=== PATIENT | female | born 1975 | race Caucasian/White ===

== ENCOUNTER → 2021-07-28 10:25 | Outpatient (BNVA) | payer OTHER, SELFPAY | PROVIDERS: Visit Provider Family Medicine | DX: Z20.828 Contact with and (suspected) exposure to other viral communicable diseases (principal) | CPT/HCPCS: 87635 ==

== ENCOUNTER 2021-08-16 03:11 | Observation (INO) | payer OTHER, SELFPAY ==
[2021-08-16] VITALS (24 sets, daily range): BP systolic 130–157; BP diastolic 69–112; PULSE 61–94; RESP 14–20; TEMP 35.9–37.1; O2SAT 92–100; BMI 49.4
--- NOTE | 2021-08-16 03:45 | W.ED.ABDPA2 ---
HPI - Abdominal Pain General: Chief Complaint: Abdominal Pain Stated Complaint: N\V Time Seen by Provider: 08/16/21 03:14 Source: patient Mode of arrival: ambulatory Limitations: no limitations History of Present Illness: 45-year-old female states that she is at work tonight 45 minutes ago started feeling very nauseous and vomited states that after she vomited she felt a little lightheaded. States she also has a history of abdominal hernia with is much worse after vomiting states she is typically able to reduce it on her own but was not able to reduce it after she vomited states pains of 4 out of 10 vomiting and nausea is improved but still feeling nauseous. Associated Symptoms: Reports nausea and vomiting; Denies chills, dysuria and fever(s) Review of Systems Const: Denies: fever(s), chills, body aches or change in appetite Eyes: Denies: blurry vision or eye discomfort ENMT: Denies: throat pain or dental pain Card: Denies: chest pain Resp: Denies: dyspnea GI: Reports: abdominal pain, nausea and vomiting : Denies: dysuria Musc: Denies: neck pain or back pain Skin/Breast: Denies: rash Neuro: Denies: headache(s) Psych: Denies: depression Anthony/Lymph: Denies: easy bruising All/Imm: Denies: urticaria PFSH ED PFSH: Surgical History (Updated 08/16/21 @ 03:46 by Sarah Childress MD) Hx of cholecystectomy Social History (Updated 08/16/21 @ 03:46 by Sarah Childress MD) Substance/Drug Use: never Physical Exam Const: COMMON NORMALS: no acute distress, patient oriented x3 and healthy appearing HENMT: COMMON NORMALS: normocephalic and atraumatic HEAD & SCALP: normocephalic and atraumatic Eye: COMMON NORMALS: Equal, round and reactive pupils present and EOMs intact bilaterally PUPIL: Yes Equal, round and reactive pupils present Neck/C-Spine: COMMON NORMALS: full ROM and supple Chest: COMMONS NORMALS: normal inspection of the chest and normal palpation of entire chest wall Resp: COMMON NORMALS: normal respiratory effort, No retractions, No use of accessory muscles and clear to auscultation bilaterally AUSCULTATION: clear to auscultation bilaterally Cardio: COMMON NORMALS: regular rate, regular rhythm and No murmurs present (Cardio) RATE: regular rate RHYTHM: regular rhythm GI: COMMON NORMALS: Normal to inspection, nondistended, normoactive bowel sounds present, Soft to palpation and non-tender PALPATION: Yes Soft to palpation OTHER: Umbilical hernia Extremity: COMMON NORMALS: normal to inspection and full ROM Neuro: COMMON NORMALS: patient oriented x3, moves all extremities and no focal motor deficits Psych: COMMON NORMALS: mental status grossly normal, Normal thought process present and cooperative THOUGHT PROCESS: Normal thought process present Skin: COMMON NORMALS: no rashes or lesions noted and no wounds GENERAL SKIN EXAM: no rashes or lesions noted Course Vital Signs: Vital signs: Vital Signs Temperature 97.5 F L 08/16/21 03:19 Pulse Rate 72 08/16/21 03:19 Respiratory Rate 17 08/16/21 04:43 Blood Pressure 137/88 08/16/21 03:19 Pulse Oximetry 97 08/16/21 03:19 MDM - Abdominal Pain Medical Decision Making Patient presents here with very large hernia with inability or hernia I attempted to reduce it was unsuccessful CT shows the hernia with small bowel with some mild edema patient's been seen in the ER by Dr. Romero who is planning on taking patient to the operating room she also found to be anemic here spoke to her no bleeding no history of anemia I believe this is chronic in nature though as her blood pressure has been normal and she has had no bleeding CT shows no signs of bleeding we will transfuse her also spoke to hospitalist who is consulted. Lab Data : 08/16/21 05:10 08/16/21 03:55 Labs/Radiology: Radiology Impressions Abdomen/Pelvis CT 08/16/21 04:12 IMPRESSION: 1. 18 mm indeterminate mass of the left adrenal gland. Nonemergent unenhanced CT or MR abdomen could further evaluate. 2. Umbilical abdominal wall hernia contains small bowel but is without obstruction. There is mild mesenteric edema seen in the hernia suggesting some vascular compromise but no bowel wall thickening detected. Laboratory Results WBC 8.7 10^3/uL (4.0-10.0) 08/16/21 05:10 RBC 3.08 10^6/uL (4.1-5.3) L 08/16/21 05:10 Hgb 5.2 g/dL (11.5-15.3) L* 08/16/21 05:10 Hct 21.3 % (37.0-47.0) L 08/16/21 05:10 MCV 69.2 fl (81-99) L 08/16/21 05:10 MCH 16.9 pg (28.0-34.0) L 08/16/21 05:10 MCHC 24.4 g/dL (30.0-36.0) L D 08/16/21 05:10 RDW 19.9 % (12.1-15.1) H 08/16/21 05:10 Plt Count 246 10^3/cmm (130-400) 08/16/21 05:10 MPV 11.7 fL (7.4-10.4) H 08/16/21 05:10 Neut % (Auto) 77.3 % 08/16/21 05:10 Lymph % (Auto) 14.2 % 08/16/21 05:10 Story % (Auto) 6.2 % 08/16/21 05:10 Eos % (Auto) 1.5 % 08/16/21 05:10 Baso % (Auto) 0.3 % 08/16/21 05:10 Neut # (Auto) 6.76 10^3/uL (1.8-7.7) 08/16/21 05:10 Lymph # (Auto) 1.2 10^3/uL (0.8-4.8) 08/16/21 05:10 Story # (Auto) 0.5 10^3/uL (0.2-0.9) 08/16/21 05:10 Eos # (Auto) 0.1 10^3/uL (0.0-0.8) 08/16/21 05:10 Baso # (Auto) 0.0 10^3/uL (0.0-0.1) 08/16/21 05:10 Nucleated RBC % (auto) 0 % 08/16/21 05:10 Nucleated RBCs # 0.0 /100WBC 08/16/21 05:10 Sodium 136 mmol/L (136-145) 08/16/21 03:55 Potassium 3.7 mmol/L (3.5-5.1) 08/16/21 03:55 Chloride 102 mmol/L (98-107) 08/16/21 03:55 Carbon Dioxide 22 mmol/L (22-29) 08/16/21 03:55 Anion Gap 15.7 (5-19) 08/16/21 03:55 BUN 17 mg/dL (6-20) 08/16/21 03:55 Creatinine 0.6 mg/dL (0.5-0.9) 08/16/21 03:55 GFR Calculation 109.1 mL/min (90-130) 08/16/21 03:55 Glucose 144 mg/dL (65-115) H 08/16/21 03:55 Calculated Osmolality 286 mOsm/kg (285-295) 08/16/21 03:55 Calcium 9.2 mg/dL (8.5-10.5) 08/16/21 03:55 Total Bilirubin 0.3 mg/dL (0.15-1.2) 08/16/21 03:55 AST 17 U/L (0-32) 08/16/21 03:55 ALT 13 U/L (0-33) 08/16/21 03:55 Alkaline Phosphatase 133 IU/L (35-105) H 08/16/21 03:55 Total Protein 6.7 g/dL (6.6-8.7) 08/16/21 03:55 Albumin 4.1 g/dL (3.5-5.2) 08/16/21 03:55 Globulin 2.6 g/dL (1.3-4.6) 08/16/21 03:55 Lipase 50 U/L (13-60) 08/16/21 03:55 HCG, Qual Negative (Negative) 08/16/21 03:55 Discharge Plan Discharge Patient Disposition: Admitted As Inpatient Clinical Impression: Incarcerated hernia, Anemia Coding Level of Care Code ED Director Of Infection Control for Chg Fwd Exam Comprehensive
[2021-08-16] MEDS: LORazepam 2 mg/mL INJ 1 mL 1 MG IVP (03:59)
[2021-08-16] MEDS: sodium chloride 0.9% 1,000 ML 999 ML IV (03:59)
[2021-08-16] MEDS: ondansetron 2 mg/ML SDV 2 mL 4 MG IVP (03:59)
[2021-08-16] MEDS: HYDROmorphone 1 mg/mL INJ 1 mL IVP (04:00)
--- NOTE | 2021-08-16 04:12 | CTR_ITS ---
PROCEDURE INFORMATION: Exam: CT Abdomen And Pelvis With Contrast Exam date and time: 08/16/2021 4:12 AM Age: 45 years old Clinical indication: Nausea and vomiting; Abdominal pain; Prior surgery; Surgery type: Gb; Patient HX: Periumbilical pain with n/v. ; Additional info: Hernia TECHNIQUE: Imaging protocol: Computed tomography of the abdomen and pelvis with contrast. Total images: 268 Radiation optimization: All CT scans at this facility use at least one of these dose optimization techniques: automated exposure control; mA and/or kV adjustment per patient size (includes targeted exams where dose is matched to clinical indication); or iterative reconstruction. Contrast material: OMNI 300; Contrast volume: 95 ml; Contrast route: INTRAVENOUS (IV); COMPARISON: No relevant prior studies available. RADIATION DOSE METRICS: Total DLP (mGy-cm): 1769.03 FINDINGS: Liver: Normal. No mass. Gallbladder and bile ducts: Prior cholecystectomy noted. Pancreas: Normal. No ductal dilation. Spleen: Normal. No splenomegaly. Adrenal glands: 18 mm indeterminate mass of the left adrenal gland. Kidneys and ureters: Normal. No hydronephrosis. Stomach and bowel: Unremarkable. No obstruction. No mucosal thickening. Appendix: No evidence of appendicitis. Intraperitoneal space: Unremarkable. No free air. No significant fluid collection. Vasculature: Unremarkable. No abdominal aortic aneurysm. Lymph nodes: Unremarkable. No enlarged lymph nodes. Urinary bladder: Unremarkable as visualized. Reproductive: Unremarkable as visualized. Bones/joints: Unremarkable. No acute fracture. Soft tissues: Umbilical abdominal wall hernia contains small bowel but is without obstruction. There is mild mesenteric edema seen in the hernia suggesting some vascular compromise but no bowel wall thickening detected. CT/CT abdomen pelvis w con* [id number] IMPRESSION: 1. 18 mm indeterminate mass of the left adrenal gland. Nonemergent unenhanced CT or MR abdomen could further evaluate. 2. Umbilical abdominal wall hernia contains small bowel but is without obstruction. There is mild mesenteric edema seen in the hernia suggesting some vascular compromise but no bowel wall thickening detected.
[2021-08-16 04:19] LABS: Basophils % 0.5 %; Eosinophils # 0.4 10^3/uL (0.0-0.8); Eosinophils % 4.7 %; Hematocrit 22.8 % (37.0-47.0); Lymphocytes # 1.9 10^3/uL (0.8-4.8); Lymphocytes % 22.8 %; Mean Corpuscular HGB Conc 25.9 g/dL (30.0-36.0); Mean Corpuscular Hemoglobin 17.8 pg (28.0-34.0); Mean Corpuscular Volume 68.7 fl (81-99); Mean Platelet Volume 11.7 fL (7.4-10.4); Monocytes # 0.6 10^3/uL (0.2-0.9); Monocytes % 6.9 %; Neutrophils # 5.35 10^3/uL (1.8-7.7); Neutrophils % 64.7 %; Nucleated Red Blood Cells % 0 %; Platelet Count 290 10^3/cmm (130-400); Red Blood Count 3.32 10^6/uL (4.1-5.3); Red Cell Distribution Width 20.1 % (12.1-15.1); White Blood Count 8.3 10^3/uL (4.0-10.0)
[2021-08-16] MEDS: iohexol 300 mg/mL 100 mL Btl IV (04:30)
[2021-08-16] MEDS: morphine 4 mg/mL SDV 1 mL IVP (04:43)
[2021-08-16 04:44] LABS: HCG, Serum Qual Negative (Negative)
[2021-08-16 04:52] LABS: Alanine Aminotransferase 13 U/L (0-33); Albumin Level 4.1 g/dL (3.5-5.2); Alkaline Phosphatase 133 IU/L (35-105); Anion Gap 15.7 (5-19); Aspartate Amino Transferase 17 U/L (0-32); Blood Urea Nitrogen 17 mg/dL (6-20); Calcium 9.2 mg/dL (8.5-10.5); Carbon Dioxide 22 mmol/L (22-29); Chloride 102 mmol/L (98-107); Creatinine Clr Calc Pharmacy 150.8682; Globulin 2.6 g/dL (1.3-4.6); Glomerular Filtration Rate 109.1 mL/min (90-130); Glucose 144 mg/dL (65-115); Lipase 50 U/L (13-60); Osmolality Calculated 286 mOsm/kg (285-295); Potassium 3.7 mmol/L (3.5-5.1); Sodium 136 mmol/L (136-145); Total Bilirubin 0.3 mg/dL (0.15-1.2); Total Protein 6.7 g/dL (6.6-8.7)
[2021-08-16 05:06] LABS: Hemoglobin 5.9 g/dL (11.5-15.3)
[2021-08-16 05:16] LABS: Basophils % 0.3 %; Eosinophils # 0.1 10^3/uL (0.0-0.8); Eosinophils % 1.5 %; Hematocrit 21.3 % (37.0-47.0); Lymphocytes # 1.2 10^3/uL (0.8-4.8); Lymphocytes % 14.2 %; Mean Corpuscular HGB Conc 24.4 g/dL (30.0-36.0); Mean Corpuscular Hemoglobin 16.9 pg (28.0-34.0); Mean Corpuscular Volume 69.2 fl (81-99); Mean Platelet Volume 11.7 fL (7.4-10.4); Monocytes # 0.5 10^3/uL (0.2-0.9); Monocytes % 6.2 %; Neutrophils # 6.76 10^3/uL (1.8-7.7); Neutrophils % 77.3 %; Nucleated Red Blood Cells % 0 %; Platelet Count 246 10^3/cmm (130-400); Red Blood Count 3.08 10^6/uL (4.1-5.3); Red Cell Distribution Width 19.9 % (12.1-15.1); White Blood Count 8.7 10^3/uL (4.0-10.0)
[2021-08-16 05:17] LABS: Hemoglobin 5.2 g/dL (11.5-15.3)
--- NOTE | 2021-08-16 05:22 | PM.HP ---
Providers/Chief Complaint Admitting Physician: Lalo Romero MD Primary Care Provider: Lalo Romero MD Chief Complaint: N\V History of Present Illness Ms. Yvette Rust is a 45 year old female presents to the emergency department with worsening abdominal pain that started earlier while she is at work. Patient had history of umbilical hernia status post laparoscopic cholecystectomy in the past. Apparently her pain got worse more dull aching in nature not being referred. Attempts to reduce the hernia in the ER was done by Dr. Childress, but they were not unfortunately successful. Patient reports that she used to push the hernia back but tonight she was not able to do that. Further work-up included blood work that showed incidental finding of low hemoglobin of 5.2 g, further asking the patient she does report that she does have heavy menstruation and she never had her hemoglobin checked before recently, does report that she recovered from Covid not far back.A CT scan of the abdomen and pelvis was done and showed; Liver: Normal. No mass. Gallbladder and bile ducts: Prior cholecystectomy noted. Pancreas: Normal. No ductal dilation. Spleen: Normal. No splenomegaly. Adrenal glands: 18 mm indeterminate mass of the left adrenal gland. Kidneys and ureters: Normal. No hydronephrosis. Stomach and bowel: Unremarkable. No obstruction. No mucosal thickening. Appendix: No evidence of appendicitis. Intraperitoneal space: Unremarkable. No free air. No significant fluid collection. Vasculature: Unremarkable. No abdominal aortic aneurysm. Lymph nodes: Unremarkable. No enlarged lymph nodes. Urinary bladder: Unremarkable as visualized. Reproductive: Unremarkable as visualized. Bones/joints: Unremarkable. No acute fracture. Soft tissues: Umbilical abdominal wall hernia contains small bowel but is without obstruction. There is mild mesenteric edema seen in the hernia suggesting some vascular compromise but no bowel wall thickening detected. CT/CT abdomen pelvis w con* [id number] IMPRESSION: 1. 18 mm indeterminate mass of the left adrenal gland. Nonemergent unenhanced CT or MR abdomen could further evaluate. 2. Umbilical abdominal wall hernia contains small bowel but is without obstruction. There is mild mesenteric edema seen in the hernia suggesting some vascular compromise but no bowel wall thickening detected. Urgent surgical consultation was initiated for further evaluation potential intervention, patient was seen and evaluated emergency department room #14. Review of Systems General: Reports: 10 or more systems reviewed and unremarkable except in HPI and below Medications/Allergies Allergies Allergy/AdvReac Type Severity Reaction Status Date / Time No Known Allergies Allergy Unverified 07/28/21 10:27 PFSH Acute PFSH: Surgical History Hx of cholecystectomy Social History Substance/Drug Use: never Vitals/I&O/Wt Last Vital Signs Temp 97.5 F L 08/16/21 03:19 Pulse 72 08/16/21 03:19 Resp 17 08/16/21 04:43 BP 137/88 08/16/21 03:19 Pulse Ox 97 08/16/21 03:19 Weight last 48 hrs Weight 270 lb Physical Exam Const: COMMON NORMALS: no acute distress and patient oriented x3 GENERAL APPEARANCE: cooperative NUTRITIONAL APPEARANCE: obese morbidly obese (49.4) ORIENTATION/CONSCIOUSNESS: Yes awake, Yes oriented to person, Yes oriented to place and Yes oriented to time HENMT: COMMON NORMALS: normocephalic HEAD & SCALP: normocephalic Eye: COMMON NORMALS: Equal, round and reactive pupils present and no scleral icterus PUPIL: Yes Equal, round and reactive pupils present Lymph: LYMPHATIC: no lymphadenopathy noted Chest: COMMONS NORMALS: normal inspection of the chest Resp: COMMON NORMALS: normal respiratory effort and clear to auscultation bilaterally AUSCULTATION: clear to auscultation bilaterally Cardio: COMMON NORMALS: S1 normal heart sound present and S2 normal heart sound present; negative for No murmurs present (Cardio) HEART SOUNDS: S1 normal heart sound present and S2 normal heart sound present GI: COMMON NORMALS: Soft to palpation; negative for No hepatosplenomegaly present INSPECTION: Yes normal to inspection PALPATION: Yes Soft to palpation, No Firmness to palpation present (GI), No Tenderness to palpation present (GI), No Guarding due to palpation present (GI), No Rigid due to palpation, No No hepatosplenomegaly present and Yes Hernia present umbilical ( Large incarcerated ventral hernia) Neuro: COMMON NORMALS: patient oriented x3 SENSORIUM/ORIENTATION: Yes oriented to person, Yes oriented to place and Yes oriented to time Psych: COMMON NORMALS: mental status grossly normal Skin: COMMON NORMALS: no rashes or lesions noted GENERAL SKIN EXAM: no rashes or lesions noted Data : 08/16/21 05:10 08/16/21 03:55 A&P Assessment and plan (1) Incarcerated hernia: After thorough history physical examination, reviewing the chart and images with my personal interpretation of the CT scan of the abdomen and pelvis that showed a large incarcerated ventral incisional hernia, with a small fascial defect, patient will require urgent surgical intervention to repair the hernia, with possible mesh placement. Indications, risks including but not limited to potential injury of viscera, vascular structures that may require bowel resection bowel resection, possible infection of the mesh and hernia recurrence that may require future surgical intervention.benefits,indications and alternatives were all discussed with the patient, patient understands and is interested to proceed. Rationale was carefully and clearly discussed with the patient.Appropriate informed consent have been reviewed and signed. Status: Acute (2) Anemia: Incidental finding of low hemoglobin that would require blood transfusion. Likely because of patient's history of heavy menstruation. Hospitalist will be consulted for further evaluation and anemia work-up, but that should not delay patient's surgical intervention. Assurance and education All questions have been answered and all concerns have been addressed to patient's satisfaction. Status: Acute (3) Morbid obesity: Patient will require down the road to focus on weight management. And patient understands that this would minimize the recurrence of the hernia. Limitations after surgery will be first 2 weeks not lifting more than 10 pounds, 6 to 8 weeks to follow nothing more than 25 pounds. Status: Acute Attestations Medical Necessity Statement*: Observations postoperative pain and anemia work-up Coding Level of Care Code Acute Document Imaging Specialist for [facility] Fwd Exam Comprehensive Diagnoses Incarcerated hernia K46.0 Anemia D64.9 Morbid obesity E66.01
[2021-08-16 05:29] LABS: INR 0.95 (0.8-1.2)
[2021-08-16 05:41] LABS: Iron 12 ug/dL (37-145); Percent Saturation 3.4 % (20-50); Total Iron Binding Capacity 346 mcg/dl; Unsaturated Iron Binding 334 ug/dL (112-347)
[2021-08-16 06:29] LABS: Slide Review Slide Review Perform
[2021-08-16 06:30] LABS: Add RBC Morph Yes; Anisocytosis 2+; Hypochromasia 3+; RBC Morph Comp No
[2021-08-16 06:31] LABS: Ovalocytes 1+; Poikilocytosis 1+
[2021-08-16] MEDS: acetaminophen 1,000 MG/100 ML PIGGYBACK 400 MG IV (07:20)
--- NOTE | 2021-08-16 07:58 | P.ANESASSM_ITS ---
Pre-Anesthetic Assessment Height/Weight: Height 1.57 m Weight 122.47 kg Temp Pulse Resp BP Pulse Ox 97 F L 70 19 H 147/94 97 08/16/21 07:35 08/16/21 07:35 08/16/21 07:35 08/16/21 07:35 08/16/21 07:36 Preop Diagnosis: Incarcerated umbilical hernia Operation Date: 08/16/21:55 Proposed Procedures p Umbilical Hernia Repair(Not Applicable) - Lalo Romero MD Familial anesthetic complications: none Last intake: Intake Last Liquid Date 08/15/21 Last Liquid Time 23:00 Last Solid Date 08/15/21 Last Solid Time 23:00 Social No alcohol and No tobacco Airway Submandibular: within normal limits Cervical ROM: within normal limits Mallampati: Class II Dentition: full Pulmonary Asthma (yearly issues. pt had Covid 3 weeks ago. Pt coughing yet back normal ADL) and Cough CV/HEM Anemia Pt receiving 1 unit PRBC None reported Hepatic None reported GI None reported Metabolic Morbid Obesity Musc/skel Lower Back Pain and Osteoarthritis/DJD Neuropsych None reported Anesthetic Plan ASA status: 2 Anesthesia: General Medications/Allergies Allergies Allergy/AdvReac Type Severity Reaction Status Date / Time No Known Allergies Allergy Unverified 07/28/21 10:27 [facility] Anesthesia Surgical History Hx of cholecystectomy Social History Substance/Drug Use: never Data Anesthesia : 08/16/21 05:10 08/16/21 03:55 Short CBC 08/16/21 08/16/21 Range/Units 03:55 05:10 WBC 8.3 8.7 (4.0-10.0) 10^3/uL Hgb 5.9 L* 5.2 L* (11.5-15.3) g/dL Hct 22.8 L 21.3 L (37.0-47.0) % MCV 68.7 L 69.2 L (81-99) fl Plt Count 290 246 (130-400) 10^3/cmm Neut % (Auto) 64.7 77.3 % Neut # (Auto) 5.35 6.76 (1.8-7.7) 10^3/uL BMP 08/16/21 03:55 Sodium 136 Potassium 3.7 Chloride 102 Carbon Dioxide 22 BUN 17 Creatinine 0.6 Glucose 144 H Calcium 9.2 Liver Function 08/16/21 Range/Units 03:55 Total Bilirubin 0.3 (0.15-1.2) mg/dL AST 17 (0-32) U/L ALT 13 (0-33) U/L Alkaline Phosphatase 133 H (35-105) IU/L Albumin 4.1 (3.5-5.2) g/dL Blood Bank 08/16/21 05:20 Blood Type A Positive Rho(D) Type Positive Antibody Screen Negative Coags 08/16/21 03:55 PT 13.00 INR 0.95 Cardiac Studies: No Data to Display
[2021-08-16] MEDS: fentaNYL 50 mcg/mL INJ 2mL IVP ×2 (07:59→11:53)
[2021-08-16] MEDS: ceFAZolin 3,000 MG in sodium chloride 0.9% (100 ml) 100 ML 200 MG IV (08:18)
--- NOTE | 2021-08-16 08:56 | SUR.OPER ---
0847 family updated of surgical status
--- NOTE | 2021-08-16 09:51 | SUR.OPER ---
family updated of surgical status
--- NOTE | 2021-08-16 10:55 | P.OP_ITS ---
Operative Report Date of procedure: August 16, 2021 Pre-op diagnosis: Preop Diagnosis Incarcerated umbilical hernia Post-op diagnosis: Incarcerated small bowel loops would omentum Procedure done: 1-Exploratory laparotomy 2-Extensive adhesiolysis exceeded one hour of the operative time 3-Incidental appendectomy Specimens removed/disposition: 1-Incidental appendectomy 2-Hernia sac and content Surgeon: Lalo Romero MD Executive Director Global Brand Marketing: Surgical emmanuel Ceballos and Savita/Amparo Circulating nurse Marci Anesthesia: General (felt hat inspector and packer Will Smart) Estimated blood loss: 150 IV fluids (mL): 700 Urine output: 900 Complications: No immediate complication Procedure: After identifying the patient in the holding area, was taken to the operating room, placed in supine position, intubated by anesthesia, prophylactic IV antibiotics were given per protocol. Scales catheter was inserted by the circulating nurse revealing clear urine,time- out was done verifying the patient's name/date of /planned procedure and destination after the procedure, all were in agreement. I started by midline incision from the infraumbilical area to the suprapubic area,followed by subcutaneous dissection using Bovie cauterization all the way to the fascia, noticed to have large incarcerated infraumbilical hernia with extensive scar tissues and adhesions. Extensive adhesiolysis was done which exceeded one hour of the operative time. Finally after appropriate dissection and opening the sac there was mild ascitic fluid revealed serous in nature. Identifying all the bowels were viable and large omentum as well contained within the hernia sac. The fascial defect was identified was about 3-1/2 to 4 inches in diameter, which I had to extend cephalad and caudad to allow me reduced bowel and omentum back to the abdominal cavity after being appropriately inspected after excision of the entire sac. I did appreciate an normal-looking appendix yet I decided to perform an incidental appendectomy for future reference. That was passed to the circulating nurse for permanent pathology. At that point there was no evidence of any bleeding or succus but there was some serous ascitic fluid appreciated within the hernial sac. There were no transition points left behind all adhesions were taken down and the defect of the fascia was freed from all underlying adhesions. The large sac was dissected and freed from the edges of the defect and passed to the circulating nurse for permanent pathology. At this point I elected to close the fascia under direct visualization using loop PDS after the first count was completed. Following that extensive and copious thorough irrigation of the subcutaneous tissues was achieved. At this point I elected not to place a mesh. Due to the edematous planes of tissue was encountered risk of less incorporation. Potential infection. Bilateral TAP (transversus abdominous plain peripheral nerve block )block using Exparel 20 mL Exparel 40 ml Normal saline 20 ml bupivacaine 0.25% Deep subdermal 2-0 Vicryl was used for closure followed by skin teresa Dry dressing was applied followed by abdominal binder Final second count was obtained and was appropriate for needles, sponges and instrument I was present for the whole entire procedure. The Scales catheter was left in place Patient was then extubated and taken to the recovery area in stable condition.
[2021-08-16 12:52] LABS: Hematocrit 28.2 % (37.0-47.0); Hemoglobin 7.6 g/dL (11.5-15.3)
--- NOTE | 2021-08-16 13:01 | ANE.PACU2 ---
Inpatient post-anesthesia follow up: Airway intact: Yes Vital signs: Temperature 97.6 F Pulse Rate 82 Respiratory Rate 18 Blood Pressure 154/87 Pulse Oximetry 92 Oxygen Delivery Me thod Room Air Oxygen Flow Rate 8 Fraction of Inspir ed Oxygen Hydration adequate: Yes Nausea and vomiting: No Pain level: 1 Mental status: Baseline
[2021-08-16] MEDS: lactated ringers 1,000 ML 100 ML IV (14:03)
[2021-08-16] MEDS: famotidine 20 mg/2 mL INJ IVP (14:03)
--- NOTE | 2021-08-16 14:18 | P.CONIM_ITS ---
Providers/Reason For Consult Consulting Physician/Specialty*: Jefe Veliz, Hospitalist Reason for Consult*: Anemia Requesting Physician: Dr. Sher Attending Physician: Lalo Romero MD History of Present Illness History of Present Illness Yvette Rust is a 45 year old female who presented to the emergency department with abdominal pain. She had nausea, vomiting. She had known history of abdominal hernia, and she could not reduce it. Upon arrival to the emergency department, attempts to reduce the hernia were performed but unsuccessful. CT scan demonstrated an incidental adrenal mass, and an umbilical abdominal wall hernia containing small bowel with some mesenteric edema. Patient reports that she has had history of anemia in the past, but has not had a blood count checked in some time. She denies any nosebleeds, blood in stool, black or tarry stool, heartburn, or significant anti-inflammatory use. She does report significantly heavy periods usually lasting 5 to 6 days but the heaviest bleeding for 2 to 3 days. During this timeframe she can sometimes use a pad every hour along with a tampon. She reports recently the bleeding has been less, as she recently had COVID in mid July. She denies any family history of bleeding disorders. She has been tired lately. And has been short of breath after having COVID. She denies any syncope, palpitations. Review of Systems General: Reports: 10 or more systems reviewed and unremarkable except in HPI and below Const: Denies: fever(s) or chills Eyes: Denies: change in vision ENMT: Denies: throat pain or epistaxis Card: Denies: chest pain Resp: Denies: dyspnea GI: Reports: abdominal pain : Denies: flank pain Musc: Denies: neck pain Skin/Breast: Denies: rash Neuro: Denies: headache(s) Psych: Denies: anxiety Endo: Denies: polyuria Anthony/Lymph: Denies: easy bruising All/Imm: Denies: urticaria Medications/Allergies Allergies Allergy/AdvReac Type Severity Reaction Status Date / Time No Known Allergies Allergy Unverified 07/28/21 10:27 Current Medications Generic Name Dose Route Start Last Admin Trade Name Freq PRN Reason Stop Dose Admin Famotidine 20 mg 08/16/21 11:15 08/16/21 14:03 Famotidine 20 Mg/2 Ml Inj IVP 20 mg Q12H FRANCY Administration Lactated Ringer's 1,000 mls @ 100 mls/hr 08/16/21 11:15 08/16/21 14:03 Lactated Ringers IV 100 mls/hr .Q10H FRANCY Administration PFSH Acute PFSH: Surgical History Hx of cholecystectomy Family History (Updated 08/16/21 @ 14:23 by Jefe Brunson MD) Other CAD (coronary artery disease) Cancer Diabetes Denies family history of Bleeding disorder Social History (Updated 08/16/21 @ 14:23 by Jefe Brunson MD) Smoking and tobacco status: never smoked Alcohol intake: current Alcohol intake frequency: holidays/special occasions only Substance/Drug Use: never Vitals/I&O/Wt Last Vital Signs Temp 97.6 F 08/16/21 12:30 Pulse 79 08/16/21 13:09 Resp 18 08/16/21 12:30 BP 154/87 08/16/21 12:30 Pulse Ox 100 08/16/21 13:09 08/15/21 08/16/21 08/16/21 22:59 06:59 14:59 Intake Total 0 / 0 1600 / 1600 Output Total 600 / 600 Balance 0 / 0 1000 / 1000 Weight last 48 hrs Weight 122.47 kg Physical Exam Narrative: EXAM NARRATIVE: General exam is a female, directly postoperative, conversant. Family is present. HEENT: Pupils equally round. Oropharynx clear. Neck is supple no lymphadenopathy thyromegaly Cardiovascular regular rate and rhythm without murmur, no S3 or S4 Lungs clear no wheezing or crackles. Bowel sounds noted. Abdomen: Binder in place from recent surgery exam is deferred Extremities no cyanosis clubbing or edema, cap refill brisk Skin no rash, pale Neuro no obvious focal deficits. Urinary Catheter Management: Scales Latex: Cath Placed During This Visit: yes Urinary Catheter Date of Insertion: 08/16/21 Urinary Catheter Time of Insertion: 08:28 Data : 08/16/21 12:43 08/16/21 03:55 Other Labs: MCV 69, INR 0.95, LFTs normal with the exception of alk phos slightly high at 133. Iron saturation 3.4%. hCG negative A&P Assessment and plan (1) Incarcerated hernia: She is directly postoperative. Appears to be doing well with no complications from surgery. Status: Acute (2) Anemia: She clearly has significant iron deficiency anemia, from history secondary to heavy menstrual periods. No history of GI bleeding or reflux. Encouraged her to avoid anti-inflammatories We will place her on some Pepcid prophylactically When diet is advanced initiated can start iron 325 mg twice daily Hemoglobin 5.2 at its lowest. She received 2 units of packed red blood cells and has appropriately increased to 7.6 Check TSH CBC tomorrow She can follow-up with her primary care provider regarding strategies for reduction of bleeding with periods or even potential referral to gynecology. Status: Acute (3) Morbid obesity: Status: Acute Plan Incidental adrenal mass, likely adenoma. This can be followed up as an outpatient with her primary care provider. Thank you for this consultation. Consult Attestations Medical Necessity Statement: As per primary Coding Level of Care Code Acute Manager Long Term Care for [facility] Fwd Diagnoses Incarcerated hernia K46.0 Anemia D64.9 Morbid obesity E66.01 Time Spent (min) 48
[2021-08-16] MEDS: morphine 4 mg/mL SDV 1 mL 2 MG IVP (14:22)
[2021-08-16 15:36] LABS: Thyroid Stimulating Hormone 3.28 uIU/mL (0.27-4.20)
[2021-08-17] VITALS: BP 148/88; PULSE 93; RESP 18; TEMP 37.1; O2SAT 94
[2021-08-17] MEDS: morphine 4 mg/mL SDV 1 mL 2 MG IVP ×2 (00:04→04:14)
[2021-08-17] MEDS: lactated ringers 1,000 ML 100 ML IV ×2 (00:04→10:53)
[2021-08-17] MEDS: famotidine 20 mg/2 mL INJ IVP ×2 (00:06→10:53)
[2021-08-17 02:25] LABS: Basophils % 0.3 %; Hematocrit 26.3 % (37.0-47.0); Lymphocytes # 1.2 10^3/uL (0.8-4.8); Lymphocytes % 11.1 %; Mean Corpuscular HGB Conc 26.6 g/dL (30.0-36.0); Mean Corpuscular Hemoglobin 19.3 pg (28.0-34.0); Mean Corpuscular Volume 72.7 fl (81-99); Monocytes # 0.8 10^3/uL (0.2-0.9); Monocytes % 7.2 %; Nucleated Red Blood Cells % 0 %; Platelet Count 268 10^3/cmm (130-400); Red Blood Count 3.62 10^6/uL (4.1-5.3); Red Cell Distribution Width 22.8 % (12.1-15.1); White Blood Count 10.5 10^3/uL (4.0-10.0)
[2021-08-17 02:51] LABS: Anion Gap 13.1 (5-19); Blood Urea Nitrogen 9 mg/dL (6-20); Calcium 7.8 mg/dL (8.5-10.5); Carbon Dioxide 23 mmol/L (22-29); Chloride 104 mmol/L (98-107); Glomerular Filtration Rate 134.7 mL/min (90-130); Glucose 110 mg/dL (65-115); Osmolality Calculated 281 mOsm/kg (285-295); Potassium 4.1 mmol/L (3.5-5.1); Sodium 136 mmol/L (136-145)
[2021-08-17 03:13] LABS: Mean Platelet Volume 11.7 fL (7.4-10.4)
[2021-08-17 03:15] LABS: Add RBC Morph No; Slide Review Slide Review Perform
[2021-08-17 04:00] VITALS: BP 137/88; BP 151/95; PULSE 86; PULSE 92; RESP 16; TEMP 36.7; O2SAT 93; O2SAT 94
[2021-08-17 04:14] VITALS: RESP 16
--- NOTE | 2021-08-17 05:04 | PM.PN ---
Subjective Subjective: Interval history: Patient overall feels better. Adequate urine output. Latest hemoglobin is 7 g/dL, platelets 268. Pain is under control Did not pass gas yet but bowel sounds are positive Medications: Reviewed: Yes Vitals/I&O/Wt Last Vital Signs Temp 98.7 F 08/17/21 00:00 Pulse 93 08/17/21 00:00 Resp 16 08/17/21 04:14 BP 148/88 08/17/21 00:00 Pulse Ox 94 08/17/21 00:00 08/16/21 08/16/21 08/17/21 14:59 22:59 06:59 Intake Total 1600 / 1600 60 / 1660 1060 / 2720 Output Total 600 / 600 Balance 1000 / 1000 60 / 1060 1060 / 2120 Weight last 48 hrs Weight 270 lb Physical Exam Narrative: EXAM NARRATIVE: Patient is conscious alert oriented X3 No apparent distress BMI 49.4 Head and neck examination PERRLA no masses no cervical lymphadenopathy no jaundice Cardiac examination audible S1-S2 no murmurs no gallops no arrhythmias Chest is clear bilateral,abscence of Rhonchi or wheezes,no surgical emphysema Abdomen nontender except slightly at the incision site nondistended soft no organomegaly guarding or rigidity/no signs of peritonitis Dressing in place dry and intact Bowel sounds are positive particularly left upper quadrant Scales catheter in place with clear urine Extremities no cyanosis no clubbing no edema Urinary Catheter Management: Scales Latex: Cath Placed During This Visit: yes Reason for Continuing Indwelling Catheter: Required Immobilization for Trauma or Surgery or Anesthesia Urinary Catheter Date of Insertion: 08/16/21 Urinary Catheter Time of Insertion: 08:28 Data : 08/17/21 02:17 08/17/21 02:17 A&P Assessment and plan (1) Incarcerated hernia: Assessment 45 years old female patient status post expiratory laparotomy and repair of incarcerated ventral incisional hernia, 08/16/2021 Plan We will start the patient slowly on clear liquid diet DC Scales catheter Incentive spirometer every hour Abdominal binder for comfort Encourage ambulation We will reevaluate the patient clinically through the day and if she continues to do well and tolerating p.o. intake and her pain is under control. We will plan to discharge home today. I appreciate Dr. Brunson's input Assurance and education All questions have been answered and all concerns have been addressed to patient's satisfaction. Status: Resolved Attestations Medical Necessity Statement*: Observation for perioperative care. Including to IV pain medication and monitoring p.o. 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
[2021-08-17] MEDS: HYDROcodone-acetaminophen 5-325 mg Tablet 1 TAB PO ×4 (06:34→19:50)
--- NOTE | 2021-08-17 08:02 | P.PN_ITS ---
Subjective Subjective: Interval history: Yvette reports she is doing okay. She has not had flatus yet. No issues with the clear liquids. Medications: Reviewed: Yes Vitals/I&O/Wt Last Vital Signs Temp 98.1 F 08/17/21 04:00 Pulse 92 08/17/21 04:00 Resp 16 08/17/21 04:14 BP 151/95 08/17/21 04:00 Pulse Ox 93 08/17/21 04:00 08/16/21 08/17/21 08/17/21 22:59 06:59 14:59 Intake Total 60 / 1660 1060 / 2720 Output Total 1000 / 1600 Balance 60 / 1060 60 / 1120 Weight last 48 hrs Weight 122.47 kg Physical Exam Narrative: EXAM NARRATIVE: General exam no distress Neck is supple no lymphadenopathy thyromegaly Cardiovascular regular rate and rhythm without murmur, no S3 or S4 Lungs clear no wheezing or crackles. Bowel sounds noted. Abdomen: Binder in place from recent surgery Extremities no cyanosis clubbing or edema, cap refill brisk Urinary Catheter Management: Scales Latex: Cath Placed During This Visit: yes, but has since been removed by the nurse Reason for Continuing Indwelling Catheter: Decision to DC Catheter Urinary Catheter Date of Insertion: 08/16/21 Urinary Catheter Time of Insertion: 08:28 Date Urinary Catheter Removed: 08/17/21 Time Urinary Catheter Discontinued: 06:15 Data : 08/17/21 02:17 08/17/21 02:17 A&P Assessment and plan (1) Incarcerated hernia: She is directly postoperative. Appears to be doing well with no complications from surgery. Status: Resolved (2) Anemia: She clearly has significant iron deficiency anemia, from history secondary to heavy menstrual periods. No history of GI bleeding or reflux. Encouraged her to avoid anti-inflammatories We will place her on some Pepcid prophylactically When diet is advanced initiated can start iron 325 mg twice daily Hemoglobin 5.2 at its lowest. She received 2 units of packed red blood cells and has appropriately increased to 7.6. This is 7.0 today. TSH was checked and normal. She can follow-up with her primary care provider regarding strategies for reduction of bleeding with periods or even potential referral to gynecology. Status: Acute (3) Morbid obesity: Status: Acute Plan Incidental adrenal mass, likely adenoma. This can be followed up as an outpatient with her primary care provider. Thank you for this consultation. Attestations Medical Necessity Statement*: As per primary Coding Level of Care Code Acute Assistant Front Office Manager for g Fwd Diagnoses Incarcerated hernia K46.0 Anemia D64.9 Morbid obesity E66.01
--- NOTE | 2021-08-17 09:55 | PC.CHAP ---
Pastoral Care Encounter/Spiritual Assessment Type of Contact [] Declined spot washer visit [] Patient/Family/Request visit [] Outpatient visit [] Follow-up visit [] Physician referral [] Code/Alert [x] Routine visit [] Staff referral [] Actively dying [] Patient sleeping [] Family support [] [] Out of room [] Palliative care [] [] Receiving care in room [] Pre-surgical visit [] Trauma [] Long length of stay [] ICU visit [] Other: Relational/Emotional Strength [x] Patient feels connected with others/family/visitors/staff [] Distress [] Loneliness/isolation [] Abandonment Spirituality of Patient [x] Person of Bree [x] Attends Mandaeism of their Bree [x] Believes in Prayer [] Reads Bible or Jew materials [] There are Spiritual issues to be addressed Meal Cooker Interventions [x] Prayer [x] Active listening [x] Non-anxious presence [x] Spiritual/emotional support [] Crisis/trauma care [] Spiritual counseling [] Bereavement support [] Provided bereavement packet [] Provided Bible/devotional materials [] Provided toy/stuffed animal, coloring book to patient or family member [] Provided Communion [] Anointing/[place] [] Salvation [x] Completed spiritual assessment [] Other: Impact on Illness or Injury [] Angry [] Fearful [] Anxious [] Often cries [] Exhaustion [] Unable to work [] Unable to attend anglican [] Unable to walk/stand [] Unable to read [] Unable to drive [] Unable to eat/drink [] Unable to sleep [] Unable to be with family [] Patient intubated [] Other: Summary patient has little pain Time spent with patient 15 min
[2021-08-17 20:00] VITALS: BP 138/85; PULSE 90; RESP 16; TEMP 36.6; O2SAT 93
[2021-08-17 22:00] VITALS: PULSE 82
[2021-08-18] VITALS (7 sets, daily range): BP systolic 123–140; BP diastolic 77–90; PULSE 78–93; RESP 15–18; TEMP 36.7–36.9; O2SAT 91–99
[2021-08-18] MEDS: HYDROcodone-acetaminophen 5-325 mg Tablet 1 TAB PO ×3 (00:16→13:24)
[2021-08-18 03:37] LABS: Hematocrit 24.5 % (37.0-47.0)
[2021-08-18 03:48] LABS: Hemoglobin 6.5 g/dL (11.5-15.3)
[2021-08-18] MEDS: sodium chloride 0.9% (100 ml) 100 ML 30 ML (06:25)
--- NOTE | 2021-08-18 07:36 | P.PN_ITS ---
Subjective Subjective: Interval history: Patient over overall feels well. Was kept overnight in observation status as she did not have bowel functions yet. Also for better pain control. Repeat H&H showed drift to 6.9 and hospitalist overnight requested 2 units of packed RBCs for transfusion. During a.m. rounds patient is receiving her first unit Adequate urine output. Pain under better control. And tolerating p.o. intake. Patient reports that she has rumbling of her bowels and feels that she is about to pass gas Medications: Reviewed: Yes Vitals/I&O/Wt Last Vital Signs Temp 98.4 F 08/18/21 06:52 Pulse 81 08/18/21 06:52 Resp 18 08/18/21 06:52 BP 134/86 08/18/21 06:52 Pulse Ox 92 08/18/21 06:52 08/17/21 08/18/21 08/18/21 22:59 06:59 14:59 Intake Total 1060 / 2060 240 / 2300 Balance 1060 / 2060 240 / 2300 Physical Exam Narrative: EXAM NARRATIVE: Patient is conscious alert oriented X3 Skin color is certainly better as patient used to be pale No apparent distress BMI 49.4 Head and neck examination PERRLA no masses no cervical lymphadenopathy no jaundice Cardiac examination audible S1-S2 no murmurs no gallops no arrhythmias Chest is clear bilateral,abscence of? Rhonchi or wheezes,no surgical emphysema Abdomen nontender except slightly at the incision site nondistended soft no organomegaly guarding or rigidity/no signs of peritonitis Incision is intact and teresa in place. Dressing was taken down by me bedside Bowel sounds are positive Extremities no cyanosis no clubbing no edema Urinary Catheter Management: Scales Latex: Cath Placed During This Visit: yes, but has since been removed by the nurse Reason for Continuing Indwelling Catheter: Decision to DC Catheter Urinary Catheter Date of Insertion: 08/16/21 Urinary Catheter Time of Insertion: 08:28 Date Urinary Catheter Removed: 08/17/21 Time Urinary Catheter Discontinued: 06:00 Data : 08/18/21 03:28 08/17/21 02:17 A&P Assessment and plan (1) Incarcerated hernia: Assessment 45 years old female patient status post expiratory laparotomy and repair of incarcerated ventral incisional hernia, 08/16/2021 Plan We will start the patient slowly on clear liquid diet Glycerin suppository as needed Incentive spirometer every hour Abdominal binder for comfort Encourage ambulation From surgical standpoint of view I do not believe the patient will require a second unit of blood transfusion Patient feels comfortable going home We will continue coordinating care with hospitalist service unless there is a contraindication from medical standpoint of view. Assurance and education All questions have been answered and all concerns have been addressed to patient's satisfaction. Status: Resolved Attestations Medical Necessity Statement*: Observation for perioperative care, for better pain control and awaiting bowel function. 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
--- NOTE | 2021-08-18 09:48 | PM.PN ---
Subjective Subjective: Interval history: Yvette reports she is doing fine. Hopes to go home today. Denies any dizziness or shortness of breath. Medications: Reviewed: Yes Vitals/I&O/Wt Last Vital Signs Temp 98.4 F 08/18/21 06:52 Pulse 81 08/18/21 06:52 Resp 18 08/18/21 06:52 BP 134/86 08/18/21 06:52 Pulse Ox 92 08/18/21 06:52 08/17/21 08/18/21 08/18/21 22:59 06:59 14:59 Intake Total 1060 / 2060 240 / 2300 Balance 1060 / 2060 240 / 2300 Physical Exam Narrative: EXAM NARRATIVE: General exam no distress. I saw her up walking in the hallway earlier. Neck is supple no lymphadenopathy thyromegaly Cardiovascular regular rate and rhythm without murmur, no S3 or S4 Lungs clear no wheezing or crackles. Bowel sounds noted. Abdomen: Binder in place from recent surgery Extremities no cyanosis clubbing or edema, cap refill brisk Urinary Catheter Management: Scales Latex: Cath Placed During This Visit: yes, but has since been removed by the nurse Reason for Continuing Indwelling Catheter: Decision to DC Catheter Urinary Catheter Date of Insertion: 08/16/21 Urinary Catheter Time of Insertion: 08:28 Date Urinary Catheter Removed: 08/17/21 Time Urinary Catheter Discontinued: 06:00 Data : 08/18/21 03:28 08/17/21 02:17 A&P Assessment and plan (1) Incarcerated hernia: Postoperative day 2.. Appears to be doing well with no complications from surgery. Awaiting return of bowel function prior to discharge. Status: Resolved (2) Anemia: She clearly has significant iron deficiency anemia, from history secondary to heavy menstrual periods. No history of GI bleeding or reflux. Encouraged her to avoid anti-inflammatories We will place her on some Pepcid prophylactically When diet is advanced initiated can start iron 325 mg twice daily Hemoglobin 5.2 at its lowest. She received 2 units of packed red blood cells and has appropriately increased to 7.6. Hemoglobin drifted down to 6.5 today. 2 units were ordered. She is already receiving 1 unit. She does not need the other one. I have canceled this. TSH was checked and normal. She can follow-up with her primary care provider regarding strategies for reduction of bleeding with periods or even potential referral to gynecology. Status: Acute (3) Morbid obesity: Status: Chronic Plan Incidental adrenal mass, likely adenoma. This can be followed up as an outpatient with her primary care provider. Thank you for this consultation. Attestations Medical Necessity Statement*: As per primary Coding Level of Care Code Acute Lens Block Gauger for [facility] Fwd Diagnoses Incarcerated hernia K46.0 Anemia D64.9 Morbid obesity E66.01
[2021-08-18] MEDS: famotidine 20 mg/2 mL INJ IVP (10:40)
[2021-08-18] MEDS: glycerin adult supp 1 EACH PR (10:40)
[2021-08-18] MEDS: psyllium powder Pkt 1 PACKET PO (10:43)
[2021-08-18 13:19] LABS: Hematocrit 30.5 % (37.0-47.0); Hemoglobin 8.4 g/dL (11.5-15.3)
--- NOTE | 2021-08-18 13:46 | PC.NURSE ---
Discharge Note Patient discharged to home via private vehicle accompanied by . Discharge instructions reviewed with patient and/or mortician supplies sales representative. Mobile pharmacy medications and/or prescriptions provided. Belongings/home medications returned.
--- NOTE | 2021-08-18 15:11 | PM.SDS ---
Short Stay Summary Providers Date of Admit/Discharge: 08/17/21 Attending Provider: Lalo Romero MD Consults: Dr. Brunson Primary Care Provider: Dr. Smith Chief Complaint: N\V HPI History of Present Illness Ms. Yvette Rust is a 45 year old female presents to the emergency department with worsening abdominal pain that started earlier while she is at work.? Patient had history of umbilical hernia status post laparoscopic cholecystectomy in the past.? Apparently her pain got worse more dull aching in nature not being referred. Attempts to reduce the hernia in the ER was done by Dr. Childress, but they were not unfortunately successful.? Patient reports that she used to push the hernia back but tonight she was not able to do that.? Further work-up included blood work that showed incidental finding of low hemoglobin of 5.2 g, further asking the patient she does report that she does have heavy menstruation and she never had her hemoglobin checked before recently, does report that she recovered from Covid not far back.A CT scan of the abdomen and pelvis was done and showed; Liver: Normal. No mass. Gallbladder and bile ducts: Prior cholecystectomy noted. Pancreas: Normal. No ductal dilation. Spleen: Normal. No splenomegaly. Adrenal glands: 18 mm indeterminate mass of the left adrenal gland. Kidneys and ureters: Normal. No hydronephrosis. Stomach and bowel: Unremarkable. No obstruction. No mucosal thickening. Appendix: No evidence of appendicitis. Intraperitoneal space: Unremarkable. No free air. No significant fluid collection. Vasculature: Unremarkable. No abdominal aortic aneurysm. Lymph nodes: Unremarkable. No enlarged lymph nodes. Urinary bladder: Unremarkable as visualized. Reproductive: Unremarkable as visualized. Bones/joints: Unremarkable. No acute fracture. Soft tissues: Umbilical abdominal wall hernia contains small bowel but is without obstruction. There is mild mesenteric edema seen in the hernia suggesting some vascular compromise but no bowel wall thickening detected. CT/CT abdomen pelvis w con* [id number] IMPRESSION: 1. 18 mm indeterminate mass of the left adrenal gland. Nonemergent unenhanced CT or MR abdomen could further evaluate. 2.?Umbilical abdominal wall hernia contains small bowel but is without obstruction. There is mild mesenteric edema seen in the hernia suggesting some vascular compromise but no bowel wall thickening detected. Urgent surgical consultation was initiated for further evaluation potential intervention, patient was seen and evaluated emergency department room #14. Patient undergone exploratory laparotomy and got admitted on my service for observation status Review of Systems General: Reports: 10 or more systems reviewed and unremarkable except in HPI and below Home Meds/Allergies Home Medications and Allergies Allergies Allergy/AdvReac Type Severity Reaction Status Date / Time No Known Allergies Allergy Verified 08/17/21 09:47 PFSH Acute PFSH: Surgical History Hx of cholecystectomy Family History Other CAD (coronary artery disease) Cancer Diabetes Denies family history of Bleeding disorder Social History Smoking and tobacco status: never smoked Alcohol intake: current Alcohol intake frequency: holidays/special occasions only Substance/Drug Use: never Vitals/I&O/Wt Last Vital Signs Temp 98.1 F 08/17/21 04:00 Pulse 92 08/17/21 04:00 Resp 16 08/17/21 04:14 BP 151/95 08/17/21 04:00 Pulse Ox 93 08/17/21 04:00 08/16/21 08/17/21 08/17/21 22:59 06:59 14:59 Intake Total 60 / 1660 1060 / 2720 Output Total 1000 / 1600 Balance 60 / 1060 60 / 1120 Weight last 48 hrs Weight 270 lb Physical Exam Urinary Catheter Management: Scales Latex: Cath Placed During This Visit: yes, but has since been removed by the nurse Reason for Continuing Indwelling Catheter: Decision to DC Catheter Urinary Catheter Date of Insertion: 08/16/21 Urinary Catheter Time of Insertion: 08:28 Date Urinary Catheter Removed: 08/17/21 Time Urinary Catheter Discontinued: 06:15 Hospital Course Admission Diagnoses Incarcerated ventral incisional hernia Hospital Course Patient postoperatively did well. Continue to have stable vital signs and adequate urine output. Was started on clear liquid diet and tolerating it without difficulty. Continue to have pain under control by switching to oral pain medications. Had a clear plan upon discharge from the hospital service with regard to her anemia and recommendation to follow-up with her primary care provider. Patient met the appropriate criteria to be discharged home today Discharge Summary Overall patient did well and tolerating p.o. intake. Undergone exploratory laparotomy with primary repair of incarcerated ventral incisional hernia and incidental appendectomy. Patient was given appropriate education regarding to her limitations for smooth postoperative convalescence. Appropriate education was given to the patient regarding her anemia and importance to follow-up with primary care provider service. SSS Data Data Completed and Pending: Completed Studies During Hospitalization Category Date Time Status CT abdomen pelvis w con* [id number] Urge nt Cat Scan 08/16/21 04:12 Completed Pending at discharge Category Date Time Status ES surgery / GI i mages Routine Exams 08/16/21 08:49 Taken Pathology: Surgic al [PTH] Routine Pth 08/16/21 11:01 Received Diagnoses at Discharge Discharge Diagnosis (1) Incarcerated hernia: Details from hospital stay: Education about refraining from heavy lifting Specific parameters were given to the patient Assurance and education All questions have been answered and all concerns have been addressed to patient's satisfaction. Status: Resolved (2) Anemia: Details from hospital stay: Return to primary care provider service for further work-up and management Status: Acute (3) Morbid obesity: Details from hospital stay: Lifestyle modification Low calorie and low-fat diet Physical activity and exercise as tolerated Encourage ambulation to prevent DVT shortly after surgery Patient spouse was educated as well Status: Chronic Discharge Plan Discharge Patient Disposition: Home Condition: Stable Prescriptions: New ferrous sulfate 325 mg (65 mg iron) tablet 325 mg PO BID Qty: 60 0RF hydrocodone-acetaminophen 5-325 mg tablet 1 tab PO Q6H PRN (Reason: pain) Qty: 28 0RF Discharge Orders: Discharge Order (Routine); Ordered 08/17/21 Ordered By: Lalo Romero Referrals: Lalo Romero MD [Physician] - (Return to surgery office in 1 week) Ori Smith MD [Physician] - 4-7 days (cbc on follow up) Discharge Diet: Advance as tolerated Discharge Activity: Limit activity as instructed Patient Instructions: Opioid Safety Activity Restrictions/Additional Instructions: Follow-up with your primary care provider regarding your heavy periods, iron deficiency anemia. Noted you have an incidental mass in your adrenal. Your primary can follow this. Post discharge instructions: 1. Patient can shower after 48 hours from surgery. Do not soak in bathtub, swimming pool or hot tub for 4 weeks after surgery. 2. Leave incisions open to air, do not apply triple antibiotic ointment or medications on the incisions. 3. Up and walking as tolerated Activity 4. Do not lift more than 5-10 pounds first 2 weeks after surgery and not more than 25 pounds 6 to 8 weeks after surgery. Driving 5. Do not operate heavy machinery or drive while using pain medications Diet Full liquid diet for today and tomorrow and Saturday start to advance to soft GI diet and advance as tolerated Pain control Patient was given a prescription for hydrocodone . Avoid NSAIDs Breathing Patient was encouraged and was given incentive spirometer to use at home 10 times an hour while awake Call the office at [phone] during office hours or go the Emergency Room after hours for - ?Fever to 100.4 or greater ?Shaking chills ?Pain that increases over time ?Redness, warmth, or pus draining from incision sites ?Persistent nausea or inability to take in liquids Attestations Medical Necessity Statement*: Observation for perioperative care Time Spent in Patient Care*: greater than 30 min Quality Metrics Clinical Quality Measures: [ No reported AMI, CVA or VTE this stay] Coding Level of Care Code Acute Heavy Equipment Diesel Mechanic for Kylie Rodriguez Diagnoses Incarcerated hernia K46.0 Anemia D64.9 Morbid obesity E66.01
== END 2021-08-18 15:27 | disposition home or self-care (01) ==
LOC: ER 12:09 → MEDSURG 12:11
PROVIDERS: Internal Medicine; Admitting Provider Surgery; Emergency Provider Emergency Medicine; Visit Provider Surgery
PROC: (CPT 44950; 2021-08-16 07:55)
PROC: (CPT 49000; 2021-08-16 07:55)
DX: K42.0 Umbilical hernia with obstruction, without gangrene (principal); D50.9 Iron deficiency anemia, unspecified; E66.01 Morbid (severe) obesity due to excess calories; Z68.42 Body mass index [BMI] 45.0-49.9, adult; K66.0 Peritoneal adhesions (postprocedural) (postinfection); Z86.16 Personal history of COVID-19
CPT/HCPCS: 49587; 36415; 36430; 51702; 74177; 80048; 80053; 83540; 83550; 83690; 84443; 84703; 85014; 85018; 85025; 85610; 86850; 86900; 86920; 88302; 96365; 96374; 96375; 99285; C9290; G0378; J0330; J0690; J1100; J1170; J1200; J2060; J2270; J2405; J2704; J2710; J3010; J3490; J7030; P9016; Q9967

== ENCOUNTER 2021-10-25 06:23 | Outpatient (CLI) | payer OTHER, SELFPAY ==
--- NOTE | 2021-10-25 06:15 | US_ITS ---
WS: [id number] ULTRASOUND SOFT TISSUES abdominal wall. HISTORY: Abdominal wall mass after surgery. COMPARISON: Prior CT 08/16/2021. TECHNIQUE: 2-D and color Doppler imaging is submitted. There is a large complex cystic and solid mass without increased vascularity in the abdominal wall. T his corresponds to the palpable area. Mass measures at least 8.8 x 7.5 x 8.5 cm. There is distortion of the adjacent soft tissues. No increased vascularity. There are multiple small loculated fluid comp onents with septations. US/US abdomen limited [id number] IMPRESSION: Complex multiloculated nonvascular mass in the abdominal wall. With recent hist ory of surgery this is probably a resolving hematoma with multiloculated compon ents. Alternatively this could be a seroma. No mass other than the hernia was n oted in the abdominal wall on the prior CT of 08/16/2021.
== END 2021-10-25 06:24 | disposition home or self-care (01) ==
LOC: RAD 06:26
PROVIDERS: Visit Provider Surgery
DX: R19.00 Intra-abdominal and pelvic swelling, mass and lump, unspecified site (principal)
CPT/HCPCS: 76705

== ENCOUNTER 2021-11-20 07:47 | Outpatient (CLI) | payer OTHER, SELFPAY ==
--- NOTE | 2021-11-20 08:33 | MM_ITS ---
WS: [id number] SCREENING DIGITAL BREAST TOMOSYNTHESIS MAMMOGRAM WITH CAD HISTORY: SCREENING COMPARISON: 07/27/2016 Bilateral CC and MLO with synthetic mammography submitted. Computer aided detection analyzed. Breast composition: The breasts are extremely dense, which lowers the sensitivity of mammography. See n best on the CC projection of the RIGHT breast is a lobulated 16 mm asymmetry. CC image and on the MLO possibly . This is just posterior to the nipple. On the lateral projection this may be i nferior to the nipple. This needs further evaluation. No additional abnormality. MM/[place] [id number] IMPRESSION: BI-RADS: 0-Incomplete: Need additional imaging evaluation FOLLOW UP: Need Additional Imaging RIGHT breast: Spot compression views (CC and MLO). True ML. Ultrasound to follo w if abnormality persists.
== END 2021-11-20 07:48 | disposition home or self-care (01) ==
LOC: RAD 07:49
PROVIDERS: PCP Family Medicine; Visit Provider Family Medicine
DX: Z12.31 Encounter for screening mammogram for malignant neoplasm of breast (principal); R92.8 Other abnormal and inconclusive findings on diagnostic imaging of breast
CPT/HCPCS: 77063; 77067

== ENCOUNTER 2021-12-26 07:23 | Outpatient (CLI) | payer OTHER, SELFPAY ==
--- NOTE | 2021-12-26 07:44 | MM_ITS ---
WS: [id number] ADDITIONAL VIEWS RIGHT MAMMOGRAM WITH DIGITAL BREAST TOMOSYNTHESIS. HISTORY: ABNORMAL MAMMO COMPARISON: 11/20/2021, 07/27/2016 Spot compression views RIGHT breast in CC, MLO projections and true ML submitted with digital breast tomosynthesis and SM. The abnormality seen on the prior examination is the patient's nipple which is inferiorly positioned and not placed in profile on the screening examination. No mass or distortion. MM/[place] [id number] IMPRESSION: BI-RADS: 2-Benign FOLLOW UP: 1 Year Follow-up
== END 2021-12-26 07:24 | disposition home or self-care (01) ==
LOC: RAD 07:24
PROVIDERS: PCP Family Medicine; Visit Provider Family Medicine
DX: R92.8 Other abnormal and inconclusive findings on diagnostic imaging of breast (principal)
CPT/HCPCS: 77061

== ENCOUNTER 2021-12-28 06:17 | Outpatient (CLI) | payer OTHER, SELFPAY ==
--- NOTE | 2021-12-28 | US_ITS ---
WS: [id number] Limited abdominal ultrasound. HISTORY: Status post hernia repair in August 2021. Follow-up hematoma. COMPARISON: 10/25/2021. Imaging is directed over the midline of the anterior abdominal wall. Along the surgical site there is a complex well-circumscribed mass with both cystic and solid components. No increased vascularity. M ass measures 6.7 x 4.5 cm and extends over a length of 7.7 cm. Moderate improvement in size since the prior study. There is less contact on the ventral abdominal wall subcutaneous soft tissue. No adjace nt free fluid. No increased vascularity. US/US abdomen limited [id number] IMPRESSION: 1. Complex mass most consistent with a resolving hematoma along the anterior ab dominal wall has moderately decreased in size now measuring 6.7 x 4.5 cm and ex tending over a length of 7.7 cm. Compared to 8.8 x 7.4 cm extending over length of 8.6 cm on the prior study. 2. No increased vascularity.
== END 2021-12-28 06:18 | disposition home or self-care (01) ==
LOC: RAD 06:17
PROVIDERS: PCP Family Medicine; Visit Provider Surgery
DX: R19.00 Intra-abdominal and pelvic swelling, mass and lump, unspecified site (principal)
CPT/HCPCS: 76705

== ENCOUNTER 2022-08-24 17:50 | Inpatient (IN) | payer OTHER, SELFPAY ==
[2022-08-24 17:53] VITALS: BP 159/100; PULSE 99; RESP 18; O2SAT 95
--- NOTE | 2022-08-24 18:31 | XRR_ITS ---
PROCEDURE INFORMATION: Exam: XR Chest Exam date and time: 08/24/2022 6:36 PM Age: 46 years old Clinical indication: Cough and dyspnea; Additional info: Cough SOB TECHNIQUE: Imaging protocol: Radiologic exam of the chest. Views: 1 view. COMPARISON: CT abdomen pelvis w con* [id number] 08/16/2021 4:30 AM FINDINGS: Lungs: Unremarkable. No consolidation. Pleural spaces: Unremarkable. No pleural effusion. No pneumothorax. Heart/Mediastinum: Unremarkable. No cardiomegaly. Bones/joints: Mild dextroscoliosis. XR/XR chest 1V portable [id number] IMPRESSION: No acute findings.
--- NOTE | 2022-08-24 18:31 | USR_ITS ---
PROCEDURE INFORMATION: Exam: US Duplex Left Lower Extremity Veins, Limited Exam date and time: 08/24/2022 6:46 PM Age: 46 years old Clinical indication: Edema, localized; Lower extremity, left; Prior surgery; Surgery date: 6+ months; Surgery type: Varicose vein removal in bilateral legs approx 2015; Additional info: Low ext pain and edema TECHNIQUE: Imaging protocol: Real-time duplex ultrasound of the Left extremity with 2-D zelaya scale, color Doppler flow and spectral waveform analysis including responses to compression and other maneuvers (when performed) with image documentation. Limited exam focused on the left lower extremity veins. COMPARISON: CT abdomen pelvis w con* [id number] 08/16/2021 4:30 AM FINDINGS: Left deep veins: Hypoechoic, nonocclusive thrombus in the common femoral, popliteal and peroneal veins. The femoral, proximal profunda femoral and posterior tibial veins are patent without thrombus. Left superficial veins: Hypoechoic, nonocclusive thrombus in the greater saphenous vein. Soft tissues: Mild subcutaneous edema. US/CV venous duplex [facility] [id number] IMPRESSION: Hypoechoic, nonocclusive thrombus in the common femoral, popliteal, peroneal and greater saphenous veins.
--- NOTE | 2022-08-24 19:18 | CTR_ITS ---
PROCEDURE INFORMATION: Exam: CTA Chest With Contrast Exam date and time: 08/24/2022 7:58 PM Age: 46 years old Clinical indication: Shortness of breath; Additional info: SOB TECHNIQUE: Imaging protocol: Computed tomographic angiography of the chest with contrast. 3D rendering (Not supervised by radiologist): MIP and/or 3D reconstructed images were created by the technologist. Radiation optimization: All CT scans at this facility use at least one of these dose optimization techniques: automated exposure control; mA and/or kV adjustment per patient size (includes targeted exams where dose is matched to clinical indication); or iterative reconstruction. Contrast material: OMNI 350; Contrast volume: 100 ml; Contrast route: INTRAVENOUS (IV); Other protocol: This patient has received 0 known CTs and 0 known cardiac nuclear medicine studies in the 12 months prior to the current study. COMPARISON: CR (CHEST, ) 08/24/2022 6:36 PM RADIATION DOSE METRICS: Total DLP (mGy-cm): 517.72 FINDINGS: Pulmonary arteries: Contrast opacification satisfactory. Bilateral pulmonary emboli, extending from the distal right main pulmonary artery into the segmental and subsegmental branches diffusely, as well as in the lobar, segmental and subsegmental left lower lobe and lingular pulmonary arteries. Small subsegmental left upper lobe pulmonary emboli. Aorta: Unremarkable. No aneurysm or dissection. Lungs: Mild central peribronchial thickening, suggestive of airway inflammation. No consolidation. No mass. Pleural spaces: Unremarkable. No pneumothorax. No pleural effusion. Heart: Mild leftward bowing of the interventricular septum.. No cardiomegaly. No pericardial effusion. Heart RV/LV ratio: 1.06. Mediastinum: Small hiatal hernia. Lymph nodes: No pathologically enlarged lymph nodes. Bones/joints: No acute osseous abnormality. Mild degenerative changes. Soft tissues: Unremarkable. CT/CT angio chest PE protcl [id number] IMPRESSION: 1. Bilateral pulmonary emboli with evidence of right heart strain, as described above. 2. Additional findings, as above.
--- NOTE | 2022-08-24 19:30 | W.ED.EXTPRO ---
HPI - Extremity Problem General: Chief complaint: Extremity Problem,Nontraumatic Stated complaint: left leg pain Time Seen by Provider: 08/24/22 18:22 Source: patient History of Present Illness: 46-year-old female here from urgent care. She was seen over there with a cough and some shortness of breath. She also complained of left lower extremity swelling and pain that is increased over the past couple of days. It is red as well. She is has a history of DVT, and they were concerned that she may have another DVT. She denies any fever or overt chest pain. She says she has had these respiratory symptoms for about 2 weeks. MD Complaint: extremity pain and extremity swelling Onset (ago): day(s) Pain Consistency: constant Location: left and lower extremity Quality: burning and aching Radiation: none Relieving factors: nothing Exacerbating factors: nothing Associated symptoms: Reports chest pain (with cough) and short of breath; Deny arthralgias or fever(s) Review of Systems Const: Denies: fever(s) Card: Reports: chest pain (with cough) Resp: Reports: dyspnea and non-productive cough; Denies: productive cough GI: Reports: nausea; Denies: abdominal pain or vomiting PFS ED PFSH: Medical History Anemia Morbid obesity Ventral incisional hernia Surgical History Hx of cholecystectomy Family History Other CAD (coronary artery disease) Cancer Diabetes Denies family history of Bleeding disorder Social History Smoking and tobacco status: never smoked Alcohol intake: current Alcohol intake frequency: holidays/special occasions only Physical Exam Const: COMMON NORMALS: no acute distress GENERAL APPEARANCE: cooperative; not frail appearing NUTRITIONAL APPEARANCE: obese HENMT: COMMON NORMALS: normocephalic, atraumatic and Normal external nose present HEAD & SCALP: normocephalic and atraumatic FACE & SINUS: normal facial exam and face symmetric NOSE: Normal external nose present Eye: COMMON NORMALS: Equal, round and reactive pupils present and EOMs intact bilaterally PUPIL: Yes Equal, round and reactive pupils present Neck/C-Spine: GENERAL: Yes trachea midline Chest: CHEST: Yes Symmetrical chest wall rise Resp: COMMON NORMALS: normal respiratory effort, No retractions, No use of accessory muscles and clear to auscultation bilaterally AUSCULTATION: clear to auscultation bilaterally Cardio: COMMON NORMALS: regular rate and regular rhythm RATE: regular rate RHYTHM: regular rhythm GI: COMMON NORMALS: Normal to inspection, nondistended, normoactive bowel sounds present Extremity: NARRATIVE EXTREMITY EXAM: L>R LE edema present. some redness and tenderness to the L leg GENERAL: Yes edema Neuro: NICOLÁS COMA SCALE: document GCS findings [place] coma scale eye opening: Spontaneous [place] coma scale verbal response: Orientated [place] coma scale motor response: Obey commands Nicolás coma scale total score: 15 SENSORY EXAM: Yes extremities (intact) Psych: COMMON NORMALS: speech normal SPEECH: Yes normal speech Course Vital Signs: Vital signs: Vital Signs Temperature 98.1 F 08/25/22 01:35 Pulse Rate 96 08/25/22 01:35 Respiratory Rate 16 08/25/22 01:35 Blood Pressure 126/72 08/25/22 01:35 Pulse Oximetry 90 08/25/22 01:35 Oxygen Delivery Me thod 08/24/22 23:26 Oxygen Flow Rate 2 08/24/22 23:26 MDM - Extremity (Nontraumatic) Medical Decision Making 46-year-old female with a history of prior DVT. She presents with shortness of breath, cough, and left lower extremity pain, redness, and swelling. Chest x-ray is negative. Her hemoglobin is 7. This is a microcytic anemia. She has been taking iron. PE study is complete and shows bilateral PEs with some evidence of right heart strain, although the patient is not on oxygen, and is actually hypertensive and not hypotensive. Given the extent of her clot burden, combined with her anemia that is nearing transfusion level she will be admitted. Call out to hospitalist. Spoke with hospitalist. Will admit the patient. Transfuse 1 unit of PRBCs given symptomatic severe anemia, as well as started on heparin drip for anticoagulation. Lab Data 08/24/22 19:40 08/24/22 19:40 Radiology Impressions Chest X-Ray 08/24/22 18:31 IMPRESSION: No acute findings. Venous Duplex 08/24/22 18:31 IMPRESSION: Hypoechoic, nonocclusive thrombus in the common femoral, popliteal, peroneal and greater saphenous veins. ADDENDUM: 08/24/222004 ADDENDUM: THIS REPORT CONTAINS FINDINGS THAT MAY BE CRITICAL TO PATIENT CARE. The findings were verbally communicated via telephone conference with HUGH DURAN at 8:03 PM PIPE SMOKER MACHINE OPERATOR on 08/24/2022. The findings were acknowledged and understood. Chest CTA 08/24/22 19:18 IMPRESSION: 1. Bilateral pulmonary emboli with evidence of right heart strain, as described above. 2. Additional findings, as above. ADDENDUM: 08/24/222045 ADDENDUM: THIS REPORT CONTAINS FINDINGS THAT MAY BE CRITICAL TO PATIENT CARE. The findings were verbally communicated via telephone conference with HUGH DURAN at 8:44 PM PIPE SMOKER MACHINE OPERATOR on 08/24/2022. The findings were acknowledged and understood. Laboratory Results WBC 9.9 10^3/uL (4.0-10.0) 08/24/22 19:40 RBC 4.11 10^6/uL (4.1-5.3) 08/24/22 19:40 Hgb 7.2 g/dL (11.5-15.3) L 08/24/22 19:40 Hct 28.4 % (37.0-47.0) L 08/24/22 19:40 MCV 69.1 fl (81-99) L 08/24/22 19:40 MCH 17.5 pg (28.0-34.0) L 08/24/22 19:40 MCHC 25.4 g/dL (30.0-36.0) L 08/24/22 19:40 RDW 20.7 % (12.1-15.1) H 08/24/22 19:40 Plt Count 243 10^3/cmm (130-400) 08/24/22 21:28 MPV Not Reportable 08/24/22 19:40 Neut % (Auto) 84.9 % 08/24/22 19:40 Lymph % (Auto) 7.5 % 08/24/22 19:40 Turner % (Auto) 4.0 % 08/24/22 19:40 Eos % (Auto) 2.8 % 08/24/22 19:40 Baso % (Auto) 0.4 % 08/24/22 19:40 Neut # (Auto) 8.37 10^3/uL (1.8-7.7) H 08/24/22 19:40 Lymph # (Auto) 0.7 10^3/uL (0.8-4.8) L 08/24/22 19:40 Turner # (Auto) 0.4 10^3/uL (0.2-0.9) 08/24/22 19:40 Eos # (Auto) 0.3 10^3/uL (0.0-0.8) 08/24/22 19:40 Baso # (Auto) 0.0 10^3/uL (0.0-0.1) 08/24/22 19:40 Nucleated RBC % (auto) 0 % 08/24/22 19:40 Nucleated RBCs # 0.0 /100WBC 08/24/22 19:40 Sodium 135 mmol/L (136-145) L 08/24/22 19:40 Potassium 3.9 mmol/L (3.5-5.1) 08/24/22 19:40 Chloride 100 mmol/L (98-107) 08/24/22 19:40 Carbon Dioxide 23 mmol/L (22-29) 08/24/22 19:40 Anion Gap 15.9 (5-19) 08/24/22 19:40 BUN 10 mg/dL (6-20) 08/24/22 19:40 Creatinine 0.7 mg/dL (0.5-0.9) 08/24/22 19:40 GFR Calculation 90.9 mL/min (90-130) 08/24/22 19:40 Glucose 120 mg/dL (65-115) H 08/24/22 19:40 Calculated Osmolality 280 mOsm/kg (285-295) L 08/24/22 19:40 Calcium 9.1 mg/dL (8.5-10.5) 08/24/22 19:40 Total Bilirubin 0.7 mg/dL (0.15-1.2) 08/24/22 19:40 AST 32 U/L (0-32) 08/24/22 19:40 ALT 35 U/L (0-33) H 08/24/22 19:40 Alkaline Phosphatase 185 U/L (35-105) H 08/24/22 19:40 Total Protein 7.1 g/dL (6.6-8.7) 08/24/22 19:40 Albumin 4.2 g/dL (3.5-5.2) 08/24/22 19:40 Globulin 2.9 g/dL (1.3-4.6) 08/24/22 19:40 HCG, Qual Negative (Negative) 08/24/22 19:40 Blood Type A Positive 08/24/22 21:28 Rho(D) Type Positive 08/24/22 21:28 Antibody Screen Negative 08/24/22 21:28 Crossmatch See Detail 08/24/22 21:28 Discharge Plan Discharge Patient Disposition: Admitted As Inpatient Admit Provider: Karen Xie Clinical Impression: Deep vein thrombosis of lower extremity, Pulmonary emboli, Severe anemia Condition: Stable Coding Level of Care Code ED Venetian Blind Tape Cutter for Kylie Rodriguez
[2022-08-24] MEDS: iohexol 350 mg/mL 500 mL Btl (per mL) IV (20:00)
[2022-08-24 20:02] LABS: Basophils % 0.4 %; Eosinophils # 0.3 10^3/uL (0.0-0.8); Eosinophils % 2.8 %; Hematocrit 28.4 % (37.0-47.0); Hemoglobin 7.2 g/dL (11.5-15.3); Lymphocytes # 0.7 10^3/uL (0.8-4.8); Lymphocytes % 7.5 %; Mean Corpuscular HGB Conc 25.4 g/dL (30.0-36.0); Mean Corpuscular Hemoglobin 17.5 pg (28.0-34.0); Mean Corpuscular Volume 69.1 fl (81-99); Monocytes # 0.4 10^3/uL (0.2-0.9); Neutrophils # 8.37 10^3/uL (1.8-7.7); Neutrophils % 84.9 %; Nucleated Red Blood Cells % 0 %; Platelet Count 265 10^3/cmm (130-400); Red Blood Count 4.11 10^6/uL (4.1-5.3); Red Cell Distribution Width 20.7 % (12.1-15.1); White Blood Count 9.9 10^3/uL (4.0-10.0)
[2022-08-24 20:21] LABS: Alanine Aminotransferase 35 U/L (0-33); Albumin Level 4.2 g/dL (3.5-5.2); Alkaline Phosphatase 185 U/L (35-105); Anion Gap 15.9 (5-19); Aspartate Amino Transferase 32 U/L (0-32); Blood Urea Nitrogen 10 mg/dL (6-20); Calcium 9.1 mg/dL (8.5-10.5); Carbon Dioxide 23 mmol/L (22-29); Chloride 100 mmol/L (98-107); Globulin 2.9 g/dL (1.3-4.6); Glomerular Filtration Rate 90.9 mL/min (90-130); Glucose 120 mg/dL (65-115); Osmolality Calculated 280 mOsm/kg (285-295); Potassium 3.9 mmol/L (3.5-5.1); Sodium 135 mmol/L (136-145); Total Bilirubin 0.7 mg/dL (0.15-1.2); Total Protein 7.1 g/dL (6.6-8.7)
[2022-08-24 20:25] LABS: HCG, Serum Qual Negative (Negative)
--- NOTE | 2022-08-24 20:26 | ECG_ITS ---
[facility] Test Date: 2022-08-24 Pat Name: Yvette Rust Department: Room: Gender: Female Roundhouse Worker: : 1975 Requested By: Hugh De La Cruz Order Number: [id number] German MD: Richard Corbett M.D. Measurements Intervals [place] Rate: 103 P: 9 WA: 162 QRS: -12 QRSD: 105 T: 50 QT: 339 QTc: 445 Interpretive Statements SINUS TACHYCARDIA LOW QRS VOLTAGE IN PRECORDIAL LEADS [QRS DEFLECTION < 1.0 mV IN CHEST LEADS] POSSIBLE ANTERIOR MYOCARDIAL INFARCTION , PROBABLY OLD [30 ms Q WAVE IN V3/V4, OR R < 0.2 mV IN V4] ABNORMAL RHYTHM ECG No previous ECG available for comparison Electronically Signed On 08-24-2022 21:56:29 DYE BOARDING MACHINE OPERATOR by Richard Corbett M.D. [email or web address]
[2022-08-24 20:51] LABS: Slide Review Slide Review Perform
[2022-08-24 21:08] VITALS: BP 145/92; PULSE 104; RESP 15; O2SAT 92
[2022-08-24 21:39] LABS: Platelet Count 243 10^3/cmm (130-400)
[2022-08-24 21:50] VITALS: BP 163/93; PULSE 79; RESP 17; O2SAT 95
[2022-08-24] MEDS: heparin 5,000 unit/mL INJ 1 mL IV (22:39)
[2022-08-24] MEDS: heparin drip 25,000 UNIT/500 ML PREMIX 35.05 UNIT IV (22:48)
[2022-08-24 23:26] VITALS: BP 169/85; PULSE 106; RESP 19; TEMP 36.6; O2SAT 94
--- NOTE | 2022-08-24 23:46 | P.HP_ITS ---
Providers/Chief Complaint Admitting Physician: Karen Xie MD Primary Care Provider: Leila Haque NP Chief Complaint: left leg pain History of Present Illness Yvette Rust is a 46 year old presenting today as she has been experiencing cough and shortness of breath over the last 2 weeks. denies associated chest pain, cough or palpitations. She has also noticed lower extremity swelling left worse than right. She has had a past history of DVT and was concerned that she may have DVT again which is why she presented to the emergency room. She has longstanding anemia, noted to be on fluids prior to the past, baseline appears to be between 7.4-8, has previously been attributed to heavy menstrual period's. Denies any current bleeding at any site. Describes feeling fatigued over past several weeks. Has not recently checked her Hb. Lower extremity Doppler performed today showed a nonocclusive thrombus in the common femoral popliteal peroneal and greater saphenous vein. CTA additionally showed bilateral PE with evidence of right heart strain. Patient is currently requiring 2 L/min supplemental oxygen Review of Systems General: Reports: 10 or more systems reviewed and unremarkable except in HPI and below Const: Denies: fever(s), chills or body aches Eyes: Denies: change in vision, blurry vision or photophobia ENMT: Reports: hoarseness; Denies: throat pain, enlarged tonsils, odynophagia or nasal congestion Card: Denies: chest pain, palpitations, irregular heart rhythm, edema, swelling of feet/ankles, lightheadedness, pre-syncope, dyspnea on exertion or orthopnea Resp: Denies: dyspnea, productive cough, non-productive cough, wheezing, stridor, pain on inspiration, change in phlegm color, hemoptysis or chest congestion GI: Denies: abdominal pain, nausea, vomiting, hematemesis, coffee ground emesis, dysphagia, heartburn, diarrhea, constipation, GI cramping, change in stool character, hematochezia or melena : Denies: flank pain, difficulty voiding, dysuria, urinary frequency, urinary urgency, urinary hesitancy or hematuria Musc: Denies: neck pain, back pain, extremity pain, joint swelling, joint warmth or deformity Neuro: Denies: headache(s), numbness in extremities, weakness in extremities, sensory changes, difficulty walking, frequent falls, dizziness, vertigo, behavioral changes, Slurred speech present or seizure-like activity Psych: Denies: anxiety, depression, suicidal ideation or homicidal ideation Endo: Denies: polyuria, polydipsia, tired all the time, cold intolerance or hot flashes Anthony/Lymph: Denies: easy bruising or easy bleeding Medications/Allergies Home Medications Medication Instructions Recorded Confirmed Last Taken Type ferrous sulfate 325 mg (65 mg 325 mg PO BID #60 tabs 08/17/21 01/01/22 Unknown Rx iron) tablet Allergies Allergy/AdvReac Type Severity Reaction Status Date / Time No Known Allergies Allergy Verified 08/24/22 17:58 PFSH Acute PFSH: Medical History Anemia Morbid obesity Ventral incisional hernia Surgical History Hx of cholecystectomy Family History Other CAD (coronary artery disease) Cancer Diabetes Denies family history of Bleeding disorder Social History Smoking and tobacco status: never smoked Alcohol intake: current Alcohol intake frequency: holidays/special occasions only Vitals/I&O/Wt Last Vital Signs Temp 97.9 F 08/24/22 23:26 Pulse 106 H 08/24/22 23:26 Resp 19 H 08/24/22 23:26 BP 169/85 08/24/22 23:26 Pulse Ox 94 08/24/22 23:26 O2 Del Method 08/24/22 23:26 O2 Flow Rate 2 08/24/22 23:26 Weight last 48 hrs Weight 125.191 kg Physical Exam Narrative: General: No acute distress, AO x3 HEENT: PERRLA, pupils bilaterally equal and reactive, pallors not present Chest: Normal vesicular breath sounds, no added sounds, equal good air entry bilaterally CVS: S1-S2 regular, no murmurs, no tachycardia, no gallops, no rubs Abdomen: Soft, nontender, no organomegaly, bowel sounds present Neuro: No focal deficits, no facial deformity, AO x3, power 5/5 in all limbs Extremities: Healthy surgical dressing present on the right hip, mild tenderness, soft no erythema. Data 08/24/22 21:28 08/24/22 19:40 Other Labs: Radiology Impressions Chest X-Ray 08/24/22 18:31 IMPRESSION: No acute findings. Venous Duplex 08/24/22 18:31 IMPRESSION: Hypoechoic, nonocclusive thrombus in the common femoral, popliteal, peroneal and greater saphenous veins. ADDENDUM: 08/24/222004 ADDENDUM: THIS REPORT CONTAINS FINDINGS THAT MAY BE CRITICAL TO PATIENT CARE. The findings were verbally communicated via telephone conference with GREGORIO HOROWITZ at 8:03 PM PLATEMAKER on 08/24/2022. The findings were acknowledged and understood. Chest CTA 08/24/22 19:18 IMPRESSION: 1. Bilateral pulmonary emboli with evidence of right heart strain, as described above. 2. Additional findings, as above. ADDENDUM: 08/24/222045 ADDENDUM: THIS REPORT CONTAINS FINDINGS THAT MAY BE CRITICAL TO PATIENT CARE. The findings were verbally communicated via telephone conference with GREGORIO HOROWITZ at 8:44 PM PLATEMAKER on 08/24/2022. The findings were acknowledged and understood. Laboratory Results WBC 9.9 10^3/uL (4.0-10.0) 08/24/22 19:40 RBC 4.11 10^6/uL (4.1-5.3) 08/24/22 19:40 Hgb 7.2 g/dL (11.5-15.3) L 08/24/22 19:40 Hct 28.4 % (37.0-47.0) L 08/24/22 19:40 MCV 69.1 fl (81-99) L 08/24/22 19:40 MCH 17.5 pg (28.0-34.0) L 08/24/22 19:40 MCHC 25.4 g/dL (30.0-36.0) L 08/24/22 19:40 RDW 20.7 % (12.1-15.1) H 08/24/22 19:40 Plt Count 243 10^3/cmm (130-400) 08/24/22 21:28 MPV Not Reportable 08/24/22 19:40 Neut % (Auto) 84.9 % 08/24/22 19:40 Lymph % (Auto) 7.5 % 08/24/22 19:40 [place] % (Auto) 4.0 % 08/24/22 19:40 Eos % (Auto) 2.8 % 08/24/22 19:40 Baso % (Auto) 0.4 % 08/24/22 19:40 Neut # (Auto) 8.37 10^3/uL (1.8-7.7) H 08/24/22 19:40 Lymph # (Auto) 0.7 10^3/uL (0.8-4.8) L 08/24/22 19:40 [place] # (Auto) 0.4 10^3/uL (0.2-0.9) 08/24/22 19:40 Eos # (Auto) 0.3 10^3/uL (0.0-0.8) 08/24/22 19:40 Baso # (Auto) 0.0 10^3/uL (0.0-0.1) 08/24/22 19:40 Nucleated RBC % (auto) 0 % 08/24/22 19:40 Nucleated RBCs # 0.0 /100WBC 08/24/22 19:40 APTT 45.6 SECONDS (23.9-36.7) H 08/25/22 04:43 Sodium 139 mmol/L (136-145) 08/25/22 04:43 Potassium 4.3 mmol/L (3.5-5.1) 08/25/22 04:43 Chloride 103 mmol/L (98-107) 08/25/22 04:43 Carbon Dioxide 23 mmol/L (22-29) 08/25/22 04:43 Anion Gap 17.3 (5-19) 08/25/22 04:43 BUN 9 mg/dL (6-20) 08/25/22 04:43 Creatinine 0.7 mg/dL (0.5-0.9) 08/25/22 04:43 GFR Calculation 90.9 mL/min (90-130) 08/25/22 04:43 Glucose 142 mg/dL (65-115) H 08/25/22 04:43 Calculated Osmolality 289 mOsm/kg (285-295) 08/25/22 04:43 Calcium 9.2 mg/dL (8.5-10.5) 08/25/22 04:43 Magnesium 2.5 mg/dL (1.7-2.3) H 08/25/22 04:43 Total Bilirubin 0.9 mg/dL (0.15-1.2) 08/25/22 04:43 AST 36 U/L (0-32) H 08/25/22 04:43 ALT 40 U/L (0-33) H 08/25/22 04:43 Alkaline Phosphatase 187 U/L (35-105) H 08/25/22 04:43 Total Protein 7.2 g/dL (6.6-8.7) 08/25/22 04:43 Albumin 4.0 g/dL (3.5-5.2) 08/25/22 04:43 Globulin 3.2 g/dL (1.3-4.6) 08/25/22 04:43 HCG, Qual Negative (Negative) 08/24/22 19:40 Blood Type A Positive 08/24/22 21:28 Rho(D) Type Positive 08/24/22 21:28 Antibody Screen Negative 08/24/22 21:28 Crossmatch See Detail 08/24/22 21:28 A&P Assessment and plan (1) Deep vein thrombosis of lower extremity: (2) Pulmonary emboli: (3) Severe anemia: Attestations Medical Necessity Statement*: Patient presenting today with lower extremity swelling and dyspnea progressively getting worse over the last 2 weeks. Found to have DVT and PE upon evaluation. Started her on heparin drip for management of pulmonary embolism. Heparin drip chosen over Lovenox or DOAC's at this time given her anemia and ne ed to exclude bleeding , ensure Hb stability prior to being placed on long- acting agents. Evidence of right heart strain on CT, will evaluate with echocardiogram. Currently patient is anemic, hemoglobin 7.2, reports fatigue, noted to be tachycardic initially upon presentation with a heart rate of 112. Dyspnea may additionally be contributed by low hemoglobin. Patient has noted to have chronic anemia at least over the past year, has been attributed to heavys menses in the past. Check FOBT. She has not rechecked her hemoglobin in the past year. We will check iron panel, B12 folate and given persistent anemia and coagulation disorder will additionally check ADOLFO panel to evaluate for autoimmune conditions. We will transfuse 1 unit of packed red blood cells due to symptomatic anemia, given right heart strain will keep goal hemoglobin at 8. Coding Level of Care Code Acute Code for Chg Fwd Moderate MDM includes number and complexity of problems actively addressed during encounter and amount and/or complexity of data reviewed/ordered as documented Diagnoses Deep vein thrombosis of lower extremity I82.409 Pulmonary emboli I26.99 Severe anemia D64.9
[2022-08-25] VITALS (20 sets, daily range): BP systolic 102–156; BP diastolic 67–98; PULSE 80–100; RESP 16–20; TEMP 36.4–36.9; O2SAT 90–98
[2022-08-25] MEDS: diphenhydrAMINE 50 mg/mL SDV 1mL 25 MG IVP (00:38)
[2022-08-25] MEDS: acetaminophen 325 mg Tablet 650 MG PO ×2 (00:39→20:18)
[2022-08-25 05:30] LABS: Partial Thromboplastin Time 45.6 SECONDS (23.9-36.7)
[2022-08-25 05:38] LABS: Alanine Aminotransferase 40 U/L (0-33); Alkaline Phosphatase 187 U/L (35-105); Anion Gap 17.3 (5-19); Aspartate Amino Transferase 36 U/L (0-32); Blood Urea Nitrogen 9 mg/dL (6-20); Calcium 9.2 mg/dL (8.5-10.5); Carbon Dioxide 23 mmol/L (22-29); Chloride 103 mmol/L (98-107); Globulin 3.2 g/dL (1.3-4.6); Glomerular Filtration Rate 90.9 mL/min (90-130); Glucose 142 mg/dL (65-115); Magnesium 2.5 mg/dL (1.7-2.3); Osmolality Calculated 289 mOsm/kg (285-295); Potassium 4.3 mmol/L (3.5-5.1); Sodium 139 mmol/L (136-145); Total Bilirubin 0.9 mg/dL (0.15-1.2); Total Protein 7.2 g/dL (6.6-8.7)
[2022-08-25] MEDS: heparin 5,000 unit/mL INJ 1 mL IV (05:49)
--- NOTE | 2022-08-25 06:30 | USCV_ITS ---
Yvette Rust Age: 46 Gender: F : 1975 Exam Date: 08/25/2022 09:10 Ordering Phys: Karen Xie MD Technologist: ROMERO Exam Location: [facility] – [place] Indication: pe BP: / HR: 90 Rhythm: Sinus Technical Quality: Adequate MEASUREMENTS (Male / Female) Normal Values 2D ECHO LV Diastolic Diameter PLAX 5.9 cm 4.2 - 5.9 / 3.9 - 5.3 cm LV Systolic Diameter PLAX 3.2 cm IVS Diastolic Thickness 0.8 cm 0.6 - 1.0 / 0.6 - 0.9 cm IVS Systolic Thickness 1.2 cm LVPW Diastolic Thickness 0.7 cm 0.6 - 1.0 / 0.6 - 0.9 cm LVPW Systolic Thickness 1.1 cm LVOT Diameter 2.6 cm LV Ejection Fraction 2D Teich 76.4 % LV Ejection Fraction MOD 2C 60.0 % LV Ejection Fraction 2C AL 58.9 % LA Diameter 3.7 cm IVC Diameter 2.0 cm M-MODE Aortic Annulus Diameter 3.5 cm LA Ao Ratio MM 1.1 MV E Point Septal Separation 0.5 cm DOPPLER AV Peak Velocity 199.0 cm/s LVOT Peak Velocity 159.0 cm/s AV Area Cont Eq vti 4.1 cm squared AV Area Cont Eq pk 4.3 cm squared MV Area PHT 4.2 cm squared Mitral E to A Ratio 0.8 MV E' Velocity 55.5 cm/s Mitral E to MV E' Ratio 8.1 Mitral E to LV E' Lateral Ratio 8.4 Mitral E to LV E' Septal Ratio 7.8 TR Peak Velocity 163.0 cm/s TR Peak Gradient 10.6 mmHg TV Peak E Velocity 81.0 cm/s PV Peak Velocity 146.0 cm/s FINDINGS Left Ventricle Normal left ventricular size, systolic function and wall thickness, with no regional wall motion abnormalities. Normal left ventricular wall thickness. Normal diastolic filling pattern. Left ventricular ejection fraction is estimated at 60 %. Right Ventricle The right ventricle is normal in size and function. Right Atrium The right atrium is normal in size. Left Atrium The left atrium is normal in size. Mitral Valve Structurally normal mitral valve without significant stenosis or prolapse. There is no mitral regurgitation. Aortic Valve Structurally normal aortic valve without significant sclerosis or stenosis. There is no aortic regurgitation. Tricuspid Valve Structurally normal tricuspid valve. Trace tricuspid valve regurgitation. Pulmonic Valve Pulmonic valve not well visualized. Pericardium Normal pericardium without effusion. Aorta Normal ascending aorta dimension. IVC The inferior vena cava appears normal. CONCLUSIONS Normal left ventricular size, systolic function and wall thickness, with no regional wall motion abnormalities. Normal left ventricular wall thickness. Normal diastolic filling pattern. Left ventricular ejection fraction is estimated at 60 %. There are no prior echocardiogram studies to compare. Dr. Bernabe Wynn MD (Electronically Signed) Final Date: 25 August 2022 15:04 S
[2022-08-25 06:50] LABS: Ferritin 14 ng/mL (15-150); Iron 24 ug/dL (37-145); Percent Saturation 6.2 % (20-50); Total Iron Binding Capacity 381 mcg/dl; Unsaturated Iron Binding 357 ug/dL (112-347)
[2022-08-25 07:05] LABS: Vitamin B12 287 pg/mL (232-1245)
[2022-08-25] MEDS: pantoprazole DR 40 mg Tablet PO ×2 (09:33→17:13)
[2022-08-25 10:17] LABS: Hematocrit 27.4 % (37.0-47.0); Hemoglobin 7.2 g/dL (11.5-15.3)
[2022-08-25 11:00] LABS: Folate Level 9.9 ng/mL (4.8-37.3)
[2022-08-25] MEDS: cyanocobalamin 1,000 mcg/mL SDV 1000 MCG IM (11:36)
[2022-08-25 12:09] LABS: Partial Thromboplastin Time 40.3 SECONDS (23.9-36.7)
[2022-08-25] MEDS: peg /e-lyte soln 4,000 mL Btl 4000 ML PO (14:37)
--- NOTE | 2022-08-25 15:52 | PM.PN ---
Subjective Subjective: Admitted overnight. H&P and labs appreciated. On examination sitting up comfortably in bed on room air. Denies any chest pain or difficulty in breathing. Seen with sister at bedside. We discussed that she does have significant pulmonary embolism with right heart strain present currently. We also discussed her history of chronic anemia. Discussed stool for positive occult blood. Patient states her family actually dissent from [place] ancestry. States her mother also dealt with anemia and clotting for the longest time. She herself does not have any miscarriages or children. We discussed given her longstanding anemia for which has been treated as iron deficiency anemia and unprovoked PE it is important to rule out autoimmune disorders. She verbalized understanding and is agreeable. Vitals/I&O/Wt Last Vital Signs Temp 98.5 F 08/25/22 14:34 Pulse 98 08/25/22 14:34 Resp 18 08/25/22 14:34 BP 145/85 08/25/22 14:34 Pulse Ox 94 08/25/22 12:21 O2 Del Method 08/25/22 12:00 O2 Flow Rate 2 08/25/22 08:00 08/25/22 08/25/22 08/25/22 06:59 14:59 22:59 Intake Total 1270.677 / 1270.677 907.6 / 907.6 Output Total 300 / 300 Balance 970.677 / 970.677 907.6 / 907.6 Weight last 48 hrs Weight 125.191 kg Physical Exam Narrative: General: No acute distress, AO x3 HEENT: PERRLA, pupils bilaterally equal and reactive, pallors present, malar rash present. Chest: Normal vesicular breath sounds, no added sounds, equal good air entry bilaterally CVS: S1-S2 regular, no murmurs, no tachycardia, no gallops, no rubs Abdomen: Soft, nontender, no organomegaly, bowel sounds present Neuro: No focal deficits, no facial deformity, AO x3, power 5/5 in all limbs Extremities: Healthy surgical dressing present on the right hip, mild tenderness, soft no erythema. Data 08/25/22 10:00 08/25/22 04:43 Micro: Microbiology 08/25/22 04:57 Occult Blood (FIT) - Final Stool - Stool Aspirate A&P Assessment and plan (1) Pulmonary emboli: Seen on CTA with right heart strain. Echocardiogram done shows an EF of 60% without diastolic dysfunction or regional motion wall abnormality.. Right ventricle normal in size and function on echocardiogram. Keep oxygen supplementation over 90%. Continue with heparin drip. We will switch over to full dose anticoagulation on discharge. Qualifiers: Pulmonary embolism type: multiple subsegmental (without acute cor pulmonale) Qualified Code(s): I26.94 - Multiple subsegmental pulmonary emboli without acute cor pulmonale (2) Deep vein thrombosis of lower extremity: (3) Severe anemia: Keep hemoglobin around 8. Already received monitor blood transfusion. Transfuse 1 more unit. Appreciate iron panel. Check vitamin B12 and folate levels. B12 borderline low. Continue cobalamin 1000 mEq IM one-time followed by 500 units oral daily. (4) Positive occult stool blood test: Care discussed in detail with surgery. Consulted. Plan for EGD and colonoscopy in a.m. Bowel prep. Protonix 40 mg twice daily. Change to clear liquid diet for now. N.p.o. after midnight. 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 Check ADOLFO, cardiolipin, double-stranded DNA. Full code. Clear liquid diet, n.p.o. after midnight. Protonix for PUD prophylaxis Heparin drip will suffice as DVT prophylaxis. Attestations Medical Necessity Statement*: Admission for more than 2 midnights for management of pulmonary emboli with right heart strain, severe anemia with occult positive stool requiring EGD and colonoscopy with concurrent anticoagulation. and High Time for a total of 50 minutes, includes reviewing past or interval history, examining/interviewing patient, placing orders, counseling patient/family/other support, updating patient/family/other support, discussing plan of care with staff, communicating with other healthcare providers, documenting encounter and coordinating care Diagnoses Pulmonary emboli I26.94 Pulmonary embolism type: multiple subsegmental (without acute cor pulmonale) Deep vein thrombosis of lower extremity I82.409 Severe anemia D64.9 Positive occult stool blood test R19.5
--- NOTE | 2022-08-25 19:51 | PC.NURSE ---
Per Dr. Geronimo he would like the Heparin drip shut off 6 hours before the scope in the morning which should be 10 am.
[2022-08-25] MEDS: heparin drip 25,000 UNIT/500 ML PREMIX 38 UNIT IV (20:04)
[2022-08-26] VITALS (39 sets, daily range): BP systolic 116–148; BP diastolic 72–91; PULSE 71–100; RESP 2–31; TEMP 36.1–37.1; O2SAT 91–100
[2022-08-26 02:43] LABS: Basophils # 0.1 10^3/uL (0.0-0.1); Basophils % 0.8 %; Eosinophils # 0.6 10^3/uL (0.0-0.8); Hematocrit 32.5 % (37.0-47.0); Hemoglobin 8.8 g/dL (11.5-15.3); Lymphocytes # 2.8 10^3/uL (0.8-4.8); Lymphocytes % 28.9 %; Mean Corpuscular HGB Conc 27.1 g/dL (30.0-36.0); Mean Corpuscular Hemoglobin 19.7 pg (28.0-34.0); Mean Corpuscular Volume 72.9 fl (81-99); Monocytes # 0.7 10^3/uL (0.2-0.9); Monocytes % 6.8 %; Neutrophils # 5.56 10^3/uL (1.8-7.7); Neutrophils % 56.9 %; Nucleated Red Blood Cells % 0 %; Platelet Count 236 10^3/cmm (130-400); Red Blood Count 4.46 10^6/uL (4.1-5.3); Red Cell Distribution Width 23.5 % (12.1-15.1); White Blood Count 9.8 10^3/uL (4.0-10.0)
[2022-08-26 02:55] LABS: Alanine Aminotransferase 45 U/L (0-33); Albumin Level 3.8 g/dL (3.5-5.2); Alkaline Phosphatase 168 U/L (35-105); Anion Gap 16.7 (5-19); Aspartate Amino Transferase 37 U/L (0-32); Blood Urea Nitrogen 7 mg/dL (6-20); Calcium 8.6 mg/dL (8.5-10.5); Carbon Dioxide 23 mmol/L (22-29); Chloride 98 mmol/L (98-107); Glomerular Filtration Rate 90.9 mL/min (90-130); Glucose 107 mg/dL (65-115); Osmolality Calculated 276 mOsm/kg (285-295); Potassium 3.7 mmol/L (3.5-5.1); Sodium 134 mmol/L (136-145); Total Bilirubin 1.1 mg/dL (0.15-1.2); Total Protein 6.8 g/dL (6.6-8.7)
[2022-08-26 03:15] LABS: Partial Thromboplastin Time 41.3 SECONDS (23.9-36.7)
[2022-08-26] MEDS: heparin 5,000 unit/mL INJ 1 mL IV (03:36)
[2022-08-26 04:14] LABS: Slide Review Slide Review Perform
--- NOTE | 2022-08-26 04:19 | PC.NURSE ---
Heparin drip paused at [address] Geronimo's order to pause 6 hours prior to procedure.
--- NOTE | 2022-08-26 08:42 | PC.NURSE ---
patient reports stool is completely liquid and clear yellow almost completely clear.
[2022-08-26] MEDS: cyanocobalamin 1,000 mcg Tablet 500 MCG PO (08:44)
[2022-08-26] MEDS: pantoprazole DR 40 mg Tablet PO ×2 (08:45→18:03)
[2022-08-26] MEDS: sodium chloride 0.9% 1,000 ML 30 ML IV (09:53)
--- NOTE | 2022-08-26 10:02 | P.CONIM_ITS ---
Providers/Reason For Consult Consulting Physician/Specialty*: Dr. Adan Geronimo, DO/General surgery Reason for Consult*: Anemia, fecal occult blood test positive Attending Physician: Bobo Levin MD Primary Care Provider: Leila Haque NP History of Present Illness History of Present Illness Yvette Rust is a 46 year old female who presents to the hospital with a D VT and PEs. She is normally anemic with hemoglobin between about 7 and 8. She had always attributed this to heavy menstrual bleeding. She does report though that she has noticed black stools over the last 2 days. She denies any abdominal pain or heartburn. Denies any nausea or vomiting. Review of Systems General: Reports: 10 or more systems reviewed and unremarkable except in HPI and below Medications/Allergies Home Medications Medication Instructions Recorded Confirmed Last Taken Type acetaminophen 325 mg capsule 650 mg PO QID PRN Pain 08/25/22 08/25/22 Unknown History albuterol sulfate 90 mcg/actuation 2 puff inhalation Q6H PRN 08/25/22 08/25/22 Unknown History aerosol inhaler Shortness Of Breath Or Wheezing norelgestromin 150 mcg-e.estradiol See Rx Instructions .Route .COMPLEX 08/25/22 08/25/22 Unknown History 35 mcg/24 hr weekly transderm patch (Xulane) Allergies Allergy/AdvReac Type Severity Reaction Status Date / Time No Known Allergies Allergy Verified 08/25/22 08:51 Current Medications Generic Name Dose Route Start Last Admin Trade Name Freq PRN Reason Stop Dose Admin Acetaminophen 650 mg 08/24/22 23:24 08/25/22 20:18 Acetaminophen 325 Mg Tablet PO 650 mg Q6H PRN Administration Mild/Mod Pain Or Temp >/= 101 Cyanocobalamin 500 mcg 08/26/22 09:00 08/26/22 08:44 Cyanocobalamin 1,000 Mcg Tablet PO 500 mcg DAILY FRANCY Administration Heparin Sodium (Porcine) 0 unit 08/24/22 23:29 08/26/22 03:36 Heparin 5,000 Unit/Ml Inj 1 Ml IV 5,000 unit PRN PRN Administration Heparin weight-base protocol Protocol Heparin Sodium/Sodium Chloride 25,000 unit in 500 mls @ 0 mls/hr 08/24/22 23:30 08/26/22 04:10 Heparin Drip IV 0 unit/kg/hr .Q0M FRANCY 0 mls/hr Titration Protocol Per Protocol Sodium Chloride 1,000 mls @ 30 mls/hr 08/26/22 09:45 08/26/22 09:53 Sodium Chloride 0.9% IV 08/27/22 09:44 30 mls/hr .Q24H FRANCY Administration Pantoprazole Sodium 40 mg 08/25/22 18:00 08/26/22 08:[address] 40 Mg Tablet PO 40 mg BID FRANCY Administration PFSH Acute PFSH: Medical History Anemia Morbid obesity Small bowel obstruction due to adhesions Ventral incisional hernia Surgical History History of exploratory laparotomy History of varicose vein ligation 2016 History of vein stripping 2016 Hx of cholecystectomy Family History Other CAD (coronary artery disease) Cancer Diabetes Denies family history of Bleeding disorder Social History Smoking and tobacco status: never smoked Alcohol intake: current Alcohol intake frequency: holidays/special occasions only Vitals/I&O/Wt Last Vital Signs Temp 98.7 F 08/26/22 08:00 Pulse 83 08/26/22 08:00 Resp 16 08/26/22 08:00 BP 144/89 08/26/22 08:00 Pulse Ox 91 08/26/22 08:00 O2 Del Method 08/26/22 07:30 O2 Flow Rate 2 08/26/22 08:00 08/25/22 08/26/22 08/26/22 22:59 06:59 14:59 Intake Total 1920 / 2827.6 551.127 / 3378.727 Balance 1920 / 2827.6 551.127 / 3378.727 Weight last 48 hrs Weight 276 lb Physical Exam Narrative: General : Patient is well developed , no acute distress, oriented x3 Head : Normal cephalic, a-traumatic. Ears : Pinnae and external canal are normal. Hearing is normal. Eyes : PERRLA, Sclera and injection are normal. No conjunctival discharge. Nose : Mucous membranes are without erythema. Throat : buccal mucosa is normal, gums are without significant recession or hypertrophy. Lungs : Equal chest rise bilaterally, no use of accessory muscles, trachea is midline. Cor : Rate and rhythm are normal. Abdomen : Soft, ND, NT, no g/r/m Back : non-tender to palpation, no CVA tenderness. Neuro : CN II - XII intact, Upper and lower extremities have equal and full strength Data 08/26/22 02:10 08/26/22 02:10 Micro: Microbiology 08/25/22 04:57 Occult Blood (FIT) - Final Stool - Stool Aspirate A&P Assessment and plan (1) Severe anemia: (2) Positive occult stool blood test: Plan EGD Colonoscopy The risks and benefits of the procedure, including bleeding, infection, intestinal perforation requiring surgery, missed lesion were explained to the patient. The patient is understanding of the risks and wishes to proceed. Coding Level of Care Code Acute Code for Chg Fwd Diagnoses Severe anemia D64.9 Positive occult stool blood test R19.5
--- NOTE | 2022-08-26 12:15 | P.ANESASSM_ITS ---
Pre-Anesthetic Assessment Height/Weight: Height 1.57 m Weight 125.191 kg Temp Pulse Resp BP Pulse Ox O2 Del Method O2 Flow Rate 98.6 F 79 16 147/89 94 2 08/26/22 11:26 08/26/22 11:26 08/26/22 11:26 08/26/22 11:26 08/26/22 11:26 08/26/22 10:51 08/26/22 08:00 Preop Diagnosis: Incarcerated umbilical hernia Operation Date: 08/26/22 11:00 Proposed Procedures p EGD/COLON(Not Applicable) - Adan Geronimo DO Familial anesthetic complications: PONV Was Beta Cm taken within 24 hours: N/A Was Clonidine taken within 24 hours: N/A Social No alcohol and No tobacco Exam alert, oriented x 3, clear to auscultation bilaterally and regular rate & rhythm Airway Submandibular: within normal limits Cervical ROM: within normal limits Mallampati: Class II Dentition: full Pulmonary Shortness of Breath DVT/PE CV/HEM Deep Vein Thrombosis and Hypertension Metabolic Morbid Obesity Anesthetic Plan ASA status: 3E Anesthesia: MAC Medications/Allergies Home Medications Medication Instructions Recorded Confirmed Last Taken Type acetaminophen 325 mg capsule 650 mg PO QID PRN Pain 08/25/22 08/25/22 Unknown History albuterol sulfate 90 mcg/actuation 2 puff inhalation Q6H PRN 08/25/22 08/25/22 Unknown History aerosol inhaler Shortness Of Breath Or Wheezing norelgestromin 150 mcg-e.estradiol See Rx Instructions .Route .COMPLEX 08/25/22 08/25/22 Unknown History 35 mcg/24 hr weekly transderm patch (Xulane) Allergies Allergy/AdvReac Type Severity Reaction Status Date / Time No Known Allergies Allergy Verified 08/25/22 08:51 Current Medications Generic Name Dose Route Start Last Admin Trade Name Freq PRN Reason Stop Dose Admin Acetaminophen 650 mg 08/24/22 23:24 08/25/22 20:18 Acetaminophen 325 Mg Tablet PO 650 mg Q6H PRN Administration Mild/Mod Pain Or Temp >/= 101 Cyanocobalamin 500 mcg 08/26/22 09:00 08/26/22 08:44 Cyanocobalamin 1,000 Mcg Tablet PO 500 mcg DAILY FRANCY Administration Heparin Sodium (Porcine) 0 unit 08/24/22 23:29 08/26/22 03:36 Heparin 5,000 Unit/Ml Inj 1 Ml IV 5,000 unit PRN PRN Administration Heparin weight-base protocol Protocol Heparin Sodium/Sodium Chloride 25,000 unit in 500 mls @ 0 mls/hr 08/24/22 23:3 0 08/26/22 04:10 Heparin Drip IV 0 unit/kg/hr .Q0M FRANCY 0 mls/hr Titration Protocol Per Protocol Sodium Chloride 1,000 mls @ 30 mls/hr 08/26/22 09:45 08/26/22 10:36 Sodium Chloride 0.9% IV 08/27/22 09:44 Infused .Q24H FRANCY Infusion Pantoprazole Sodium 40 mg 08/25/22 18:00 08/26/22 08:[address] 40 Mg Tablet PO 40 mg BID FRANCY Administration PFSH Anesthesia Medical History Anemia Morbid obesity Small bowel obstruction due to adhesions Ventral incisional hernia Surgical History History of exploratory laparotomy History of varicose vein ligation 2016 History of vein stripping 2016 Hx of cholecystectomy Family History Other CAD (coronary artery disease) Cancer Diabetes Denies family history of Bleeding disorder Social History Smoking and tobacco status: never smoked Alcohol intake: current Alcohol intake frequency: holidays/special occasions only Data Anesthesia 08/26/22 02:10 08/26/22 02:10 Short CBC 08/24/22 08/24/22 08/25/22 Range/Units 19:40 21:28 10:00 WBC 9.9 (4.0-10.0) 10^3/uL Hgb 7.2 L 7.2 L (11.5-15.3) g/dL Hct 28.4 L 27.4 L (37.0-47.0) % MCV 69.1 L (81-99) fl Plt Count 265 243 (130-400) 10^3/cmm Neut % (Auto) 84.9 % Neut # (Auto) 8.37 H (1.8-7.7) 10^3/uL 08/26/22 Range/Units 02:10 WBC 9.8 (4.0-10.0) 10^3/uL Hgb 8.8 L (11.5-15.3) g/dL Hct 32.5 L (37.0-47.0) % MCV 72.9 L (81-99) fl Plt Count 236 (130-400) 10^3/cmm Neut % (Auto) 56.9 % Neut # (Auto) 5.56 (1.8-7.7) 10^3/uL BMP 08/24/22 08/25/22 08/26/22 19:40 04:43 02:10 Sodium 135 L 139 134 L Potassium 3.9 4.3 3.7 Chloride 100 103 98 Carbon Dioxide BUN 10 9 7 Creatinine 0.7 0.7 0.7 Glucose 120 H 142 H 107 Calcium 9.1 9.2 8.6 Liver Function 08/24/22 08/25/22 08/26/22 Range/Units 19:40 04:43 02:10 Total Bilirubin 0.7 0.9 1.1 (0.15-1.2) mg/dL AST 32 36 H 37 H (0-32) U/L ALT 35 H 40 H 45 H (0-33) U/L Alkaline Phosphatase 185 H 187 H 168 H (35-105) U/L Albumin 4.2 4.0 3.8 (3.5-5.2) g/dL Blood Bank 08/24/22 21:28 Blood Type A Positive Rho(D) Type Positive Antibody Screen Negative Coags 08/25/22 08/25/22 08/26/22 04:43 11:41 02:10 APTT 45.6 H 40.3 H 41.3 H Cardiac Studies: Echocardiogram 08/25/22
--- NOTE | 2022-08-26 12:16 | ANE.PACU2 ---
Inpatient post-anesthesia follow up: Airway intact: Yes Vital signs: Temperature 98.6 F Pulse Rate 79 Respiratory Rate 16 Blood Pressure 147/89 Pulse Oximetry 94 Oxygen Delivery Me thod Room Air Oxygen Flow Rate 2 Fraction of Inspir ed Oxygen Hydration adequate: Yes Nausea and vomiting: No Pain level: 2 Mental status: Baseline
[2022-08-26] MEDS: heparin drip 25,000 UNIT/500 ML PREMIX 43 UNIT IV ×2 (13:10→15:19)
--- NOTE | 2022-08-26 13:22 | PC.NURSE ---
Did not restart heparin gtt due to length of pause time for surgery. Charge nurse verified new PTT is needed in order to restart medication at the correct rate. Ordering new PTT stat to restart.
[2022-08-26] MEDS: heparin drip 25,000 UNIT/500 ML PREMIX 35 UNIT IV (14:00)
--- NOTE | 2022-08-26 14:27 | P.PN_ITS ---
Subjective Subjective: No acute events overnight. Patient tolerated GoLytely well yesterday. No episodes of melena. Has remained hemodynamically stable and afebrile. Received second of blood transfusion yesterday. Seen post EGD and colonoscopy today. Yesterday somehow her heparin drip was stopped from noon to around 8 PM. Heparin drip was restarted at around 8 PM and was stopped around 4 hours prior to the procedure today. Patient remains on room air. Vitals/I&O/Wt Last Vital Signs Temp 98.6 F 08/26/22 11:26 Pulse 79 08/26/22 11:26 Resp 16 08/26/22 11:26 BP 147/89 08/26/22 11:26 Pulse Ox 94 08/26/22 11:26 O2 Del Method 08/26/22 10:51 O2 Flow Rate 2 08/26/22 08:00 08/25/22 08/26/22 08/26/22 22:59 06:59 14:59 Intake Total 1920 / 2827.6 551.127 / 3378.727 306.833 / 306.833 Balance 1920 / 2827.6 551.127 / 3378.727 306.833 / 306.833 Weight last 48 hrs Weight 125.191 kg Physical Exam Narrative: General: No acute distress, AO x3 HEENT: PERRLA, pupils bilaterally equal and reactive, pallors present, malar rash present. Chest: Normal vesicular breath sounds, no added sounds, equal good air entry bilaterally CVS: S1-S2 regular, no murmurs, no tachycardia, no gallops, no rubs Abdomen: Soft, nontender, no organomegaly, bowel sounds present Neuro: No focal deficits, no facial deformity, AO x3, power 5/5 in all limbs Extremities: Healthy surgical dressing present on the right hip, mild tenderness, soft no erythema. Data 08/26/22 02:10 08/26/22 02:10 A&P Assessment and plan (1) Pulmonary emboli: Seen on CTA with right heart strain. Echocardiogram done shows an EF of 60% without diastolic dysfunction or regional motion wall abnormality.. Right ventricle normal in size and function on echocardiogram. Keep oxygen supplementation over 90%. Continue with heparin drip. Plan to switch to oral anticoagulation prior to dis charge. Qualifiers: Pulmonary embolism type: multiple subsegmental (without acute cor pulmonale) Qualified Code(s): I26.94 - Multiple subsegmental pulmonary emboli without acute cor pulmonale (2) Deep vein thrombosis of lower extremity: (3) Severe anemia: Keep hemoglobin around 8. Post 2 unit of blood transfusion. Continue with oral iron and vitamin B12 supplementation. Hemoglobin stable. (4) Positive occult stool blood test: Post EGD and colonoscopy. Found to have diverticulitis and internal hemorrhoids. No active site of bl eeding. Continue Protonix 40 mg oral daily. Restart diet. 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 Check ADOLFO, cardiolipin, double-stranded DNA. Full code. Regular diet. Protonix for PUD prophylaxis Heparin drip will suffice as DVT prophylaxis. Attestations Medical Necessity Statement*: Requires further hospitalization for management of bilateral pulmonary embolism in a patient with baseline significant iron deficiency anemia with a positive occult blood in stool while she undergoes EGD and colonoscopy for further risk stratification. and Moderate Time for a total of 40 minutes, includes reviewing past or interval history, examining/interviewing patient, placing orders, counseling patient/family/other support, updating patient/family/other support, discussing plan of care with staff, communicating with other healthcare providers, documenting encounter and coordinating care Diagnoses Pulmonary emboli I26.94 Pulmonary embolism type: multiple subsegmental (without acute cor pulmonale) Deep vein thrombosis of lower extremity I82.409 Severe anemia D64.9 Positive occult stool blood test R19.5
[2022-08-26 14:32] LABS: Partial Thromboplastin Time 26.3 SECONDS (23.9-36.7)
[2022-08-26] MEDS: ferrous gluconate 324 mg Tablet PO (18:03)
[2022-08-26] MEDS: heparin drip 25,000 UNIT/500 ML PREMIX 48 UNIT IV (21:57)
[2022-08-27] VITALS (9 sets, daily range): BP systolic 138–172; BP diastolic 72–125; PULSE 59–91; RESP 15–18; TEMP 36.4–36.9; O2SAT 87–96
[2022-08-27 02:02] LABS: Basophils % 0.5 %; Eosinophils # 0.5 10^3/uL (0.0-0.8); Eosinophils % 6.8 %; Hemoglobin 8.2 g/dL (11.5-15.3); Lymphocytes % 24.8 %; Mean Corpuscular HGB Conc 27.3 g/dL (30.0-36.0); Mean Corpuscular Hemoglobin 20.1 pg (28.0-34.0); Mean Corpuscular Volume 73.5 fl (81-99); Mean Platelet Volume 11.6 fL (7.4-10.4); Monocytes # 0.5 10^3/uL (0.2-0.9); Monocytes % 6.7 %; Neutrophils # 4.82 10^3/uL (1.8-7.7); Neutrophils % 60.7 %; Nucleated Red Blood Cells % 0 %; Platelet Count 206 10^3/cmm (130-400); Red Blood Count 4.08 10^6/uL (4.1-5.3); Red Cell Distribution Width 23.9 % (12.1-15.1); White Blood Count 7.9 10^3/uL (4.0-10.0)
[2022-08-27 02:45] LABS: Partial Thromboplastin Time 53.1 SECONDS (23.9-36.7)
[2022-08-27 03:07] LABS: Slide Review Slide Review Perform
--- NOTE | 2022-08-27 07:12 | PC.NURSE ---
Bedside report done with Savita Bazzi, left before signing
[2022-08-27] MEDS: pantoprazole DR 40 mg Tablet PO ×2 (08:17→17:16)
[2022-08-27] MEDS: cyanocobalamin 1,000 mcg Tablet 500 MCG PO (08:17)
[2022-08-27] MEDS: ferrous gluconate 324 mg Tablet PO ×2 (08:17→17:16)
[2022-08-27] MEDS: heparin drip 25,000 UNIT/500 ML PREMIX 51 UNIT IV ×2 (08:27→18:16)
[2022-08-27 09:20] LABS: Partial Thromboplastin Time 65.6 SECONDS (23.9-36.7)
--- NOTE | 2022-08-27 12:05 | PC.CHAP ---
Pastoral Care Encounter/Spiritual Assessment Type of Contact [] Declined jet operator visit [] Patient/Family/Request visit [] Outpatient visit [] Follow-up visit [] Physician referral [] Code/Alert [x] Routine visit [] Staff referral [] Actively dying [] Patient sleeping [x] Family support [] [] Out of room [] Palliative care [] [] Receiving care in room [] Pre-surgical visit [] Trauma [] Long length of stay [] ICU visit [] Other: Relational/Emotional Strength [x] Patient feels connected with others/family/visitors/staff [] Distress [] Loneliness/isolation [] Abandonment Spirituality of Patient [x] Person of Bree [] Attends Gnosticist of their Bree [x] Believes in Prayer [] Reads Bible or Temple materials [] There are Spiritual issues to be addressed Network Support Analyst Interventions [x] Prayer [x] Active listening [x] Non-anxious presence [x] Spiritual/emotional support [] Crisis/trauma care [] Spiritual counseling [] Bereavement support [] Provided bereavement packet [] Provided Bible/devotional materials [] Provided toy/stuffed animal, coloring book to patient or family member [] Provided Communion [] Anointing/[place] [] Salvation [x] Completed spiritual assessment [] Other: Impact on Illness or Injury [] Angry [] Fearful [] Anxious [] Often cries [] Exhaustion [] Unable to work [] Unable to attend scientologist [] Unable to walk/stand [] Unable to read [] Unable to drive [] Unable to eat/drink [] Unable to sleep [] Unable to be with family [] Patient intubated [] Other: Summary Time spent with patient 10o bmin
--- NOTE | 2022-08-27 12:53 | P.PN_ITS ---
Subjective Subjective: Seen this morning. Patient states her periods are pretty regular and she had them 2 weeks ago however today she started having vaginal bleeding early this morning. He said it is not super happy however there is moderate amount present. She is on a control patch which she was supposed to start yesterday as her previous course finished however she could not start it since she was in the hospital. She does have a history of very heavy periods and was in the process of seeing PATIENT SERVICE ASSOCIATE as an outpatient for possible uterine ablation. She has not made it to her first appointment yet. Hemoglobin dropped to 8.2 this morning. She is on heparin drip at this time. Vitals/I&O/Wt Last Vital Signs Temp 98.4 F 08/27/22 08:22 Pulse 86 08/27/22 08:22 Resp 16 08/27/22 08:22 BP 138/89 08/27/22 08:22 Pulse Ox 93 08/27/22 08:22 O2 Del Method 08/27/22 08:22 O2 Flow Rate 2 08/26/22 20:00 08/26/22 08/27/22 08/27/22 22:59 06:59 14:59 Intake Total 571.316 / 1278.149 500 / 500 Balance 571.316 / 1278.149 500 / 500 Physical Exam Narrative: General: No acute distress, AO x3 HEENT: EOMI Chest: Normal vesicular breath sounds, no added sounds, equal good air entry bilaterally CVS: S1-S2 regular, no murmurs, no tachycardia, no gallops, no rubs Abdomen: Soft, nontender, no organomegaly, bowel sounds present Neuro: grossly non focal Extremities: Healthy surgical dressing present on the right hip, mild tenderness, soft no erythema. Data 08/27/22 01:22 08/26/22 02:10 A&P Assessment and plan (1) Positive occult stool blood test: (2) Deep vein thrombosis of lower extremity: (3) Pulmonary emboli: Qualifiers: Pulmonary embolism type: multiple subsegmental (without acute cor pulmonale) Qualified Code(s): I26.94 - Multiple subsegmental pulmonary emboli without acute cor pulmonale (4) Severe anemia: Plan #Pulmonary embolism, DVT #Severe chronic anemia, acute on chronic #Positive occult stool blood test #History of heavy menstrual periods ? Right heart strain noted on CTA. Echo shows EF 60% without diastolic dysfunction or regional motion wall abnormality. Patient on heparin drip at this time. Plan to switch to Eliquis at discharge. ? Goal to keep hemoglobin around 8. Hemoglobin dropped to 8.2 today. Patient having vaginal bleeding at this point. He does have a history of heavy periods. Had her last period 2 weeks ago. Is pretty regular. ? On control at home however was supposed to start a new pack yesterday and did not do so. Possibility of breakthrough bleeding? ? She is status post EGD colonoscopy following diverticulitis and internal hemorrhoids. No active site of bleeding. Continue Protonix 40 mg oral daily ? Check ADOLFO, cardiolipin, double-stranded DNA. Unprovoked DVT PE. Will need to follow-up with hematology at discharge ? We will discuss with PATIENT SERVICE ASSOCIATE Full code Regular diet Protonix Heparin drip for now Attestations Medical Necessity Statement*: We will continue patient on heparin drip for now. Hemoglobin has dropped and she is not having vaginal bleeding. We will need hemoglobin to be stable before transitioning her to oral anticoagulants and then discharging her. Patient may require blood transfusion in next 24 hours. Other Coding Information Focused coding review requested Diagnoses Positive occult stool blood test R19.5 Deep vein thrombosis of lower extremity I82.409 Pulmonary emboli I26.94 Pulmonary embolism type: multiple subsegmental (without acute cor pulmonale) Severe anemia D64.9 Time Spent (min) 40
--- NOTE | 2022-08-27 13:05 | US_ITS ---
WS: [id number] TRANSABDOMINAL PELVIC AND TRANSVAGINAL PELVIC ULTRASOUND HISTORY: vaginal bleeding COMPARISON: None available. Uterus: 10.1 cm x 8.0 cm x 6.6 cm. Mildly enlarged anteverted uterus. Poor definition of the uterus i ncluding the myometrium. Endometrium: No distinct well visualized endometrium. There is a large hypoechoic, mildly vascular ma ss centered in the mid uterus. There is some shadowing anteriorly from the mass. A portion of the end ometrium visualized is mildly displaced anteriorly. The entire central mass measures 5.5 x 4.8 x 5.0 cm. Right ovary: 3.7 cm x 2.6 cm x 2.0 cm. Normal size and vascularity. Left ovary: Not identified. Free fluid: No free fluid. US/US pelv w/transvag [id number] IMPRESSION: 1. Markedly abnormal endometrium. Endometrium is enlarged heterogeneous with i ndistinctness of the junctional zone. Normal endometrium is not identified. The differential includes endometrial neoplasm versus intracavitary/submucosal fib roid. There is some shadowing which may indicate leiomyoma. 2. LEFT ovary is not identified.
--- NOTE | 2022-08-27 13:17 | PM.PN ---
Subjective Subjective: Patient seen and examined. Denies any abdominal pain Vitals/I&O/Wt Last Vital Signs Temp 98.5 F 08/27/22 12:00 Pulse 86 08/27/22 12:00 Resp 16 08/27/22 12:00 BP 151/91 08/27/22 12:00 Pulse Ox 94 08/27/22 12:00 O2 Del Method 08/27/22 12:00 O2 Flow Rate 2 08/26/22 20:00 08/26/22 08/27/22 08/27/22 22:59 06:59 14:59 Intake Total 571.316 / 1278.149 500 / 500 Balance 571.316 / 1278.149 500 / 500 Physical Exam Narrative: General: No acute distress, awake alert and oriented x3 Abdomen: Soft, nontender, nondistended, no guarding rebound or masses Data 08/27/22 01:22 08/26/22 02:10 A&P Assessment and plan (1) Positive occult stool blood test: (2) Deep vein thrombosis of lower extremity: (3) Pulmonary emboli: Qualifiers: Pulmonary embolism type: multiple subsegmental (without acute cor pulmonale) Qualified Code(s): I26.94 - Multiple subsegmental pulmonary emboli without acute cor pulmonale (4) Severe anemia: Plan EGD and colonoscopy yesterday revealed only diverticulosis and small internal hemorrhoids. There is no signs of blood or bleeding. Patient needs repeat colonoscopy for colon cancer screening at age 56 Anusol 4 times daily for 10 days-prescription is in the discharge Medical management per hospitalist General surgery will sign off. Please reconsult if needed Attestations Medical Necessity Statement*: Per primary Coding Level of Care Code Acute Code for Chg Fwd Diagnoses Positive occult stool blood test R19.5 Deep vein thrombosis of lower extremity I82.409 Pulmonary emboli I26.94 Pulmonary embolism type: multiple subsegmental (without acute cor pulmonale) Severe anemia D64.9
[2022-08-27 13:34] LABS: Anti-Double Strand DNA AB <1 IU/mL
[2022-08-27 13:34] LABS: CENTROMERE B ANTIBODY <1.0 NEG AI (<1.0 NEG); JO-1 ANTIBODY <1.0 NEG AI (<1.0 NEG); RNP ANTIBODY <1.0 NEG AI (<1.0 NEG); SCL-70 ANTIBODY <1.0 NEG AI (<1.0 NEG); SJOGREN'S ANTIBODY (SS-A) <1.0 NEG AI (<1.0 NEG); SM ANTIBODY <1.0 NEG AI (<1.0 NEG); SS-B <1.0 NEG AI (<1.0 NEG)
[2022-08-27 15:53] LABS: Basophils # 0.1 10^3/uL (0.0-0.1); Basophils % 0.6 %; Eosinophils # 0.5 10^3/uL (0.0-0.8); Eosinophils % 6.7 %; Hemoglobin 8.5 g/dL (11.5-15.3); Lymphocytes # 1.9 10^3/uL (0.8-4.8); Lymphocytes % 23.7 %; Mean Corpuscular HGB Conc 26.6 g/dL (30.0-36.0); Mean Corpuscular Hemoglobin 19.4 pg (28.0-34.0); Mean Corpuscular Volume 73.1 fl (81-99); Mean Platelet Volume 11.2 fL (7.4-10.4); Monocytes # 0.6 10^3/uL (0.2-0.9); Neutrophils % 61.6 %; Nucleated Red Blood Cells % 0 %; Platelet Count 214 10^3/cmm (130-400); Red Blood Count 4.38 10^6/uL (4.1-5.3)
[2022-08-27 16:10] LABS: Partial Thromboplastin Time 66.7 SECONDS (23.9-36.7)
--- NOTE | 2022-08-27 16:11 | P.CONIM_ITS ---
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 Management of anemia(Hgb 7.2) with 2 units packed red blood cell transfusion has been performed. Pt is also being worked up for Coagulation abnormalities. Patient gives history of having a cough 2 weeks ago with left calf swelling which was painful to touch, and fatigue. 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 Patient has history of a clot in her varicose veins in 2015 which was treated with vein stripping. Patient also gives history of severe anemia in 2021 which required 3 units of packed red blood cell transfusion and outpatient treatment of oral iron. Patient complains of starting her menses earlier this a.m. and gives history of her menses occurring approximately 2 weeks ago. Patient presently uses Xulane for contraception, she was scheduled to add a new patch yesterday bu t because of her hospitalization it was not started. She describes her menses as heavy flow, with duration 5 to 7 days with mild cramping. Because of her history of chronic anemia and multiple blood transfusions, with her last hospitalization in 2021 she has scheduled an appointment with Dr. Pavon to discussed endometrial ablation. I discussed with her heavy menses and treatment options. With her history and this episode of PE and DVT I advised her to not continue contraception containing estrogen or progesterone. Consideration of an IUD(Paragard) or endometrial ablation are good options. I have discussed with patient need for pelvic ultrasound for evaluation of her uterus and ovaries to better evaluate her as a candidate for above options. I also discussed with patient that if endometrial ablation is considered and approved that it is important that she understands that the endometrium would then be considered unfavorable for future pregnancies. Patient understands. Medications/Allergies Home Medications Medication Instructions Recorded Confirmed Last Taken Type acetaminophen 325 mg capsule 650 mg PO QID PRN Pain 08/25/22 08/25/22 Unknown History albuterol sulfate 90 mcg/actuation 2 puff inhalation Q6H PRN 08/25/22 08/25/22 Unknown History aerosol inhaler Shortness Of Breath Or Wheezing norelgestromin 150 mcg-e.estradiol See Rx Instructions .Route .COMPLEX 08/25/22 08/25/22 Unknown History 35 mcg/24 hr weekly transderm patch (Xulane) Allergies Allergy/AdvReac Type Severity Reaction Status Date / Time No Known Allergies Allergy Verified 08/25/22 08:51 Current Medications Generic Name Dose Route Start Last Admin Trade Name Freq PRN Reason Stop Dose Admin Acetaminophen 650 mg 08/24/22 23:24 08/25/22 20:18 Acetaminophen 325 Mg Tablet PO 650 mg Q6H PRN Administration Mild/Mod Pain Or Temp >/= 101 Cyanocobalamin 500 mcg 08/26/22 09:00 08/27/22 08:17 Cyanocobalamin 1,000 Mcg Tablet PO 500 mcg DAILY FRANCY Administration Ferrous Gluconate 324 mg 08/26/22 18:00 08/27/22 08:17 Ferrous Gluconate 324 Mg Tablet PO 324 mg BIDWM FRANCY Administration Heparin Sodium (Porcine) 0 unit 08/24/22 23:29 08/26/22 03:36 Heparin 5,000 Unit/Ml Inj 1 Ml IV 5,000 unit PRN PRN Administration Heparin weight-base protocol Protocol Heparin Sodium/Sodium Chloride 25,000 unit in 500 mls @ 0 mls/hr 08/24/22 23:30 08/27/22 08:27 Heparin Drip IV 20.37 unit/kg/hr .Q0M FRANCY 51 mls/hr Administration Protocol Per Protocol Pantoprazole Sodium 40 mg 08/25/22 18:00 08/27/22 08:[address] 40 Mg Tablet PO 40 mg BID FRANCY Administration PFSH 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 MACHINE OPERATOR PFSH: Medical History Anemia Morbid obesity Small bowel obstruction due to adhesions Ventral incisional hernia Surgical History History of exploratory laparotomy History of varicose vein ligation 2015 History of vein stripping 2016 Hx of cholecystectomy Family History Other CAD (coronary artery disease) Cancer Diabetes Denies family history of Bleeding disorder Social History Smoking and tobacco status: never smoked Alcohol intake: current Alcohol intake frequency: holidays/special occasions only Vitals/I&O/Wt Last Vital Signs Temp 98.0 F 08/27/22 16:02 Pulse 86 08/27/22 16:02 Resp 16 08/27/22 12:00 BP 172/125 08/27/22 16:02 Pulse Ox 96 08/27/22 16:02 O2 Del Method 08/27/22 16:02 O2 Flow Rate 2 08/26/22 20:00 08/27/22 08/27/22 08/27/22 06:59 14:59 22:59 Intake Total 500 / 500 Balance 500 / 500 Physical Exam Narrative: 46-year-old female alert and orient x3 no acute distress. Back/Pelvis: OTHER: Pelvic exam deferred Data 08/27/22 01:22 08/26/22 02:10 A&P Assessment and plan (1) Deep vein thrombosis of lower extremity: (2) Pulmonary emboli: Qualifiers: Pulmonary embolism type: multiple subsegmental (without acute cor pulmonale) Qualified Code(s): I26.94 - Multiple subsegmental pulmonary emboli without acute cor pulmonale (3) Severe anemia: Plan A. 1. Menorrhagia 2. Anemia (Hgb 7) 3. S/p transfusion 2 unit packed red blood cells (Hgb 8.2) 4. Pulmonary embolus 5. DVT 6. Obesity 7. History of Xulane use(contraception-containing estrogen and progestin) P. 1. Ordered pelvic ultrasound for evaluation of uterus and ovaries 2. Consider patient for endometrial ablation if ultrasound of pelvis is normal(to treat Menorrhagia and decrease risk of future Transfusions) 3. Discontinue use of Xulane (for hormonal components increase her risk of PE and DVTs.) Consult Attestations Time Spent in Patient Care: Greater than 35 minutes Coding Level of Care Code Acute Code for Chg Fwd Diagnoses Deep vein thrombosis of lower extremity I82.409 Pulmonary emboli I26.94 Pulmonary embolism type: multiple subsegmental (without acute cor pulmonale) Severe anemia D64.9
[2022-08-27 17:15] LABS: ANA SCREEN, IFA NEGATIVE (NEGATIVE)
[2022-08-27 17:56] LABS: Slide Review Slide Review Perform
--- NOTE | 2022-08-27 17:56 | PC.NURSE ---
Patient complaint with cares, heparin gtt still running per protocol and MAR. No s/s of distress no complaints of pain.
[2022-08-27 22:55] LABS: Partial Thromboplastin Time 69.3 SECONDS (23.9-36.7)
[2022-08-28] VITALS (7 sets, daily range): BP systolic 155–160; BP diastolic 83–112; PULSE 71–94; RESP 15–17; TEMP 36.7–36.8; O2SAT 92–95
[2022-08-28] MEDS: heparin drip 25,000 UNIT/500 ML PREMIX 51 UNIT IV (03:54)
[2022-08-28 04:53] LABS: Partial Thromboplastin Time 66.3 SECONDS (23.9-36.7)
[2022-08-28] MEDS: cyanocobalamin 1,000 mcg Tablet 500 MCG PO (08:50)
[2022-08-28] MEDS: ferrous gluconate 324 mg Tablet PO ×2 (08:51→17:18)
[2022-08-28] MEDS: pantoprazole DR 40 mg Tablet PO ×2 (08:52→17:18)
[2022-08-28] MEDS: acetaminophen 325 mg Tablet 650 MG PO (09:34)
[2022-08-28 10:08] LABS: Basophils % 0.4 %; Eosinophils # 0.6 10^3/uL (0.0-0.8); Eosinophils % 7.8 %; Hematocrit 33.1 % (37.0-47.0); Hemoglobin 8.9 g/dL (11.5-15.3); Lymphocytes # 1.5 10^3/uL (0.8-4.8); Mean Corpuscular HGB Conc 26.9 g/dL (30.0-36.0); Mean Corpuscular Hemoglobin 19.8 pg (28.0-34.0); Mean Corpuscular Volume 73.7 fl (81-99); Monocytes # 0.4 10^3/uL (0.2-0.9); Monocytes % 4.7 %; Neutrophils % 67.7 %; Nucleated Red Blood Cells % 0 %; Platelet Count 238 10^3/cmm (130-400); Red Blood Count 4.49 10^6/uL (4.1-5.3); Red Cell Distribution Width 24.8 % (12.1-15.1); White Blood Count 7.8 10^3/uL (4.0-10.0)
[2022-08-28 10:13] LABS: Slide Review Slide Review Perform
[2022-08-28 10:35] LABS: Mean Platelet Volume 8.6 fL (7.4-10.4)
[2022-08-28 10:43] LABS: DNA AB (DS) CRITHIDIA,IFA NEGATIVE (NEGATIVE)
[2022-08-28 10:57] LABS: Partial Thromboplastin Time 67.4 SECONDS (23.9-36.7)
--- NOTE | 2022-08-28 11:29 | P.CONIM_ITS ---
Providers/Reason for Consult Consulting Physican/Specialty*: POLYSOMNOGRAPHY TECHNICIAN Reason for Consult*: Menorrhagia with severe anemia Requesting Physcian: Dr. Estrada Attending Physician: Katrin Estrada MD Primary Care Provider: Leila Haque NP POLYSOMNOGRAPHY TECHNICIAN Consult HPI History of Present Illness Yvette Rust is a 46 year old female with menorrhagia and severe anemia. Patient is presently admitted for treatment of pulmonary embolus and lower extremity DVT. Patient has been transfused with 2 units packed red blood cells with resulting hemoglobin of 8.7 which has been stable for greater than 24 hours. Pelvic ultrasound?uterus 10 cm x 8 cm x 6.6 cm with abnormal endometrium. There is a large hypoechoic vascular mass measuring 5.5 cm x 4.8 cm x 5.0 cm there is no endometrial fluid. The right ovary is normal left ovary not identified. Differential diagnosis would include endometrial neoplasm versus submucosal fibroid. I have discussed these differentials with the patient, and need for hysteroscopy D&C for endometrial sampling for diagnosis. Then options of treatment would be determined. Patient has appointment with Dr. Pavon 09/21/2022. I have discussed this patient with Dr. Estrada, and from a gynecological standpoint patient may be discharged to follow-up with Dr. Pavon in an outpatient setting at his office. I reviewed this patient with Dr. Pavon, he will see patient before discharge to discuss course of treatment. Medications/Allergies Home Medications Medication Instructions Recorded Confirmed Last Taken Type acetaminophen 325 mg capsule 650 mg PO QID PRN Pain 08/25/22 08/25/22 Unknown History albuterol sulfate 90 mcg/actuation 2 puff inhalation Q6H PRN 08/25/22 08/25/22 Unknown History aerosol inhaler Shortness Of Breath Or Wheezing norelgestromin 150 mcg-e.estradiol See Rx Instructions .Route .COMPLEX 08/25/22 08/25/22 Unknown History 35 mcg/24 hr weekly transderm patch (Xulane) Allergies Allergy/AdvReac Type Severity Reaction Status Date / Time No Known Allergies Allergy Verified 08/25/22 08:51 Current Medications Generic Name Dose Route Start Last Admin Trade Name Freq PRN Reason Stop Dose Admin Acetaminophen 650 mg 08/24/22 23:24 08/28/22 09:34 Acetaminophen 325 Mg Tablet PO 650 mg Q6H PRN Administration Mild/Mod Pain Or Temp >/= 101 Cyanocobalamin 500 mcg 08/26/22 09:00 08/28/22 08:50 Cyanocobalamin 1,000 Mcg Tablet PO 500 mcg DAILY FRANCY Administration Ferrous Gluconate 324 mg 08/26/22 18:00 08/28/22 08:51 Ferrous Gluconate 324 Mg Tablet PO 324 mg BIDWM FRANCY Administration Heparin Sodium (Porcine) 0 unit 08/24/22 23:29 08/26/22 03:36 Heparin 5,000 Unit/Ml Inj 1 Ml IV 5,000 unit PRN PRN Administration Heparin weight-base protocol Protocol Heparin Sodium/Sodium Chloride 25,000 unit in 500 mls @ 0 mls/hr 08/24/22 23:30 08/28/22 03:54 Heparin Drip IV 20.37 unit/kg/hr .Q0M FRANCY 51 mls/hr Administration Protocol Per Protocol Pantoprazole Sodium 40 mg 08/25/22 18:00 08/28/22 08:[address] 40 Mg Tablet PO 40 mg BID FRANCY Administration PFSH POLYSOMNOGRAPHY TECHNICIAN PFSH: Medical History Anemia Morbid obesity Small bowel obstruction due to adhesions Ventral incisional hernia Surgical History History of exploratory laparotomy History of varicose vein ligation 2015 History of vein stripping 2016 Hx of cholecystectomy Family History Other CAD (coronary artery disease) Cancer Diabetes Denies family history of Bleeding disorder Social History Smoking and tobacco status: never smoked Alcohol intake: current Alcohol intake frequency: holidays/special occasions only Contraception: Contraception History Comment: Patient is to discontinue her Xulane.... Vitals/I&O/Wt Last Vital Signs Temp 98.1 F 08/28/22 11:26 Pulse 85 08/28/22 11:26 Resp 17 08/28/22 11:26 BP 156/112 08/28/22 11:26 Pulse Ox 95 08/28/22 11:26 O2 Del Method 08/28/22 08:00 O2 Flow Rate 2 08/26/22 20:00 08/27/22 08/28/22 08/28/22 22:59 06:59 14:59 Intake Total 740 / 1240 731.3 / 1970.3 472 / 472 Balance 740 / 1240 731.3 / 1970.3 472 / 472 Data 08/28/22 09:50 08/26/22 02:10 A&P Assessment and plan (1) Severe anemia: Menorrhagia-s/p transfusion with 2 units packed red blood cells (2) Deep vein thrombosis of lower extremity: (3) Pulmonary emboli: Qualifiers: Pulmonary embolism type: multiple subsegmental (without acute cor pulmonale) Qualified Code(s): I26.94 - Multiple subsegmental pulmonary emboli without acute cor pulmonale Plan A. 1. Enlarged uterus with large hypoechoic mass 5. 5 cm x 4.8 cm x 5.0 cm, with abnormal endometrium. Differential diagnosis to include endometrial neoplasm versus mcknight bmucosal fibroid. P. 1. Patient follow-up after discharge with Dr. Pavon for consideration for hysteroscopy D&C for endometrial sampling.. 2. Patient advised to discontinue contraception which contains estrogen and progesterone. Coding Level of Care Code Acute Code for Chg Fwd Diagnoses Severe anemia D64.9 Deep vein thrombosis of lower extremity I82.409 Pulmonary emboli I26.94 Pulmonary embolism type: multiple subsegmental (without acute cor pulmonale)
--- NOTE | 2022-08-28 12:11 | PM.DCS ---
Discharge Providers Date of Admission: 08/24/22 21:31 Date of Discharge: August 28, 2022 Attending Provider at Admission: Karen Xie MD Attending Provider at Discharge: Katrin Estrada MD Primary Care Provider: Leila Haque NP Diagnoses at Discharge Discharge Diagnosis (1) Severe anemia: Status: Inactive (2) Deep vein thrombosis of lower extremity: Status: Acute (3) Pulmonary emboli: Status: Acute Qualifiers: Pulmonary embolism type: multiple subsegmental (without acute cor pulmonale) Qualified Code(s): I26.94 - Multiple subsegmental pulmonary emboli without acute cor pulmonale Reason for Visit Reason for Visit: left leg pain Brief History: Yvette Rust is a 46 year old presenting today as she has been experiencing cough and shortness of breath over the last 2 weeks. denies associated chest pain, cough or palpitations. ? She has also noticed lower extremity swelling left worse than right.? She has had a past history of DVT and was concerned that she may have DVT again which is why she presented to the emergency room.? She has longstanding anemia, noted to be on fluids prior to the past, baseline appears to be between 7.4-8, has previously been attributed to heavy menstrual period's.? Denies any current bleeding at any site. Describes feeling fatigued over past several weeks. Has not recently checked her Hb. Lower extremity Doppler performed today showed a nonocclusive thrombus in the common femoral popliteal peroneal and greater saphenous vein.? CTA additionally showed bilateral PE with evidence of right heart strain.? Patient is currently requiring 2 L/min supplemental oxygen Hospital Course Hospital Course Admitted for DVT PE. For acute blood loss anemia did require 2 units packed RBC during hospital stay. Has been on a heparin drip. Has a history of heavy periods. Will be switched to Eliquis at discharge. Hemoglobin has been stable and rising. 8.9 today. Is currently on her period. Was on control at home but did not start a new pack during hospital stay. She is status post EGD colonoscopy following diverticulitis and internal hemorrhoids. To continue on Protonix 40 oral daily. Hypercoagulable work-up has been sent to lab. Results are pending. He is to follow-up with hematology as an outpatient. [employer]BI[employer] HOME LABORER was consulted and patient. Pelvic ultrasound was done. Patient is thickened endometrium had a 5 cm mass which could possibly a fibroid however unsure. Further work-up and plan to be done as an outpatient. Patient will be seen by Dr. Pavon prior to discharge today to discuss management plan going forward. Patient will be discharged home in stable condition today. She is to see hematology and her primary care doctor. He has been advised to refrain from using any oral contraceptives or hormonal methods of contraception. All questions were answered to patient satisfaction. She will follow-up with hematology and Dr. Pavon at discharge. Physical Exam Narrative: General: No acute distress, AO x3 HEENT: EOMI Chest: Normal vesicular breath sounds, no added sounds, equal good air entry bilaterally CVS: S1-S2 regular, no murmurs, no tachycardia, no gallops, no rubs Abdomen: Soft, nontender, no organomegaly, bowel sounds present Neuro: grossly non focal Extremities: no edema Discharge Data Studies Completed and Pending Completed Studies During Hospitalization Category Date Time Status CTA chest [CT angio chest PE protcl [id number]] Stat Cat Scan 08/24/22 19:18 Completed XR chest 1V portable [id number] Stat Exams 08/24/22 18:31 Completed CV. echo complete* [id number] Routine Ultrasound 08/25/22 06:30 Completed US pelv w/transvag [id number] Routine Ultrasound 08/27/22 13:05 Completed US venous duplex lower extremity LT [CV venous duplex Ultrasound 08/24/22 18:31 [place] [id number]] Stat Pending at discharge Category Date Time Status ADOLFO Profile Rheumatology Timed Lab 08/25/22 10:00 Results CARDIOLIPIN AB (IGA,IGG,IGM) Routine Lab 08/25/22 11:41 Received PTT [Partial Thromboplastin Time] Routine Lab 08/28/22 15:50 Ordered Radiology Impressions Chest X-Ray 08/24/22 18:31 IMPRESSION: No acute findings. Venous Duplex 08/24/22 18:31 IMPRESSION: Hypoechoic, nonocclusive thrombus in the common femoral, popliteal, peroneal and greater saphenous veins. ADDENDUM: 08/24/222004 ADDENDUM: THIS REPORT CONTAINS FINDINGS THAT MAY BE CRITICAL TO PATIENT CARE. The findings were verbally communicated via telephone conference with GREGORIO HOROWITZ at 8:03 PM CLINICAL TRIALS SPECIALIST on 08/24/2022. The findings were acknowledged and understood. Chest CTA 08/24/22 19:18 IMPRESSION: 1. Bilateral pulmonary emboli with evidence of right heart strain, as described above. 2. Additional findings, as above. ADDENDUM: 08/24/222045 ADDENDUM: THIS REPORT CONTAINS FINDINGS THAT MAY BE CRITICAL TO PATIENT CARE. The findings were verbally communicated via telephone conference with GREGORIO HOROWITZ at 8:44 PM CLINICAL TRIALS SPECIALIST on 08/24/2022. The findings were acknowledged and understood. Pelvic/Transvag US 08/27/22 13:05 IMPRESSION: 1. Markedly abnormal endometrium. Endometrium is enlarged heterogeneous with indistinctness of the junctional zone. Normal endometrium is not identified. The differential includes endometrial neoplasm versus intracavitary/submucosal fibroid. There is some shadowing which may indicate leiomyoma. 2. LEFT ovary is not identified. Laboratory Results WBC 7.8 10^3/uL (4.0-10.0) 08/28/22 09:50 RBC 4.49 10^6/uL (4.1-5.3) 08/28/22 09:50 Hgb 8.9 g/dL (11.5-15.3) L 08/28/22 09:50 Hct 33.1 % (37.0-47.0) L 08/28/22 09:50 MCV 73.7 fl (81-99) L 08/28/22 09:50 MCH 19.8 pg (28.0-34.0) L 08/28/22 09:50 MCHC 26.9 g/dL (30.0-36.0) L 08/28/22 09:50 RDW 24.8 % (12.1-15.1) H 08/28/22 09:50 Plt Count 238 10^3/cmm (130-400) 08/28/22 09:50 MPV 8.6 fL (7.4-10.4) 08/28/22 09:50 Neut % (Auto) 67.7 % 08/28/22 09:50 Lymph % (Auto) 19.0 % 08/28/22 09:50 [place] % (Auto) 4.7 % 08/28/22 09:50 Eos % (Auto) 7.8 % 08/28/22 09:50 Baso % (Auto) 0.4 % 08/28/22 09:50 Neut # (Auto) 5.30 10^3/uL (1.8-7.7) 08/28/22 09:50 Lymph # (Auto) 1.5 10^3/uL (0.8-4.8) 08/28/22 09:50 [place] # (Auto) 0.4 10^3/uL (0.2-0.9) 08/28/22 09:50 Eos # (Auto) 0.6 10^3/uL (0.0-0.8) 08/28/22 09:50 Baso # (Auto) 0.0 10^3/uL (0.0-0.1) 08/28/22 09:50 Nucleated RBC % (auto) 0 % 08/28/22 09:50 Nucleated RBCs # 0.0 /100WBC 08/28/22 09:50 APTT 67.4 SECONDS (23.9-36.7) H 08/28/22 09:50 Sodium 134 mmol/L (136-145) L 08/26/22 02:10 Potassium 3.7 mmol/L (3.5-5.1) 08/26/22 02:10 Chloride 98 mmol/L (98-107) 08/26/22 02:10 Carbon Dioxide 23 mmol/L (22-29) 08/26/22 02:10 Anion Gap 16.7 (5-19) 08/26/22 02:10 BUN 7 mg/dL (6-20) 08/26/22 02:10 Creatinine 0.7 mg/dL (0.5-0.9) 08/26/22 02:10 GFR Calculation 90.9 mL/min (90-130) 08/26/22 02:10 Glucose 107 mg/dL (65-115) 08/26/22 02:10 Calculated Osmolality 276 mOsm/kg (285-295) L 08/26/22 02:10 Calcium 8.6 mg/dL (8.5-10.5) 08/26/22 02:10 Magnesium 2.5 mg/dL (1.7-2.3) H 08/25/22 04:43 Iron 24 ug/dL (37-145) L 08/25/22 04:43 TIBC 381 mcg/dl 08/25/22 04:43 % Saturation 6.2 % (20-50) L 08/25/22 04:43 Unsat Iron Binding 357 ug/dL (112-347) H 08/25/22 04:43 Ferritin 14 ng/mL (15-150) L 08/25/22 04:43 Total Bilirubin 1.1 mg/dL (0.15-1.2) 08/26/22 02:10 AST 37 U/L (0-32) H 08/26/22 02:10 ALT 45 U/L (0-33) H 08/26/22 02:10 Alkaline Phosphatase 168 U/L (35-105) H 08/26/22 02:10 Total Protein 6.8 g/dL (6.6-8.7) 08/26/22 02:10 Albumin 3.8 g/dL (3.5-5.2) 08/26/22 02:10 Globulin 3.0 g/dL (1.3-4.6) 08/26/22 02:10 Vitamin B12 287 pg/mL (232-1245) 08/25/22 04:43 Folate 9.9 ng/mL (4.8-37.3) 08/25/22 10:00 HCG, Qual Negative (Negative) 08/24/22 19:40 ADOLFO IFA Animal Tis Res Negative (NEGATIVE) 08/25/22 10:00 SAUL-1 Antibody <1.0 neg AI (<1.0 NEG) 08/25/22 10:00 SS-A Antibody <1.0 neg AI (<1.0 NEG) 08/25/22 10:00 SS-B Antibody <1.0 neg AI (<1.0 NEG) 08/25/22 10:00 Sm (Miller) Antibody <1.0 neg AI (<1.0 NEG) 08/25/22 10:00 SHAREPOINT ANALYST Antibody <1.0 neg AI (<1.0 NEG) 08/25/22 10:00 Scl-70 Antibody <1.0 neg AI (<1.0 NEG) 08/25/22 10:00 Anti-ds DNA IgG Ab <1 IU/mL 08/25/22 11:41 Anti-ds DNA IgG (Crith) Negative (NEGATIVE) 08/25/22 10:00 Centromere B Antibody <1.0 neg AI (<1.0 NEG) 08/25/22 10:00 Complement C3c TNP 08/25/22 10:00 Complement C4c TNP 08/25/22 10:00 CH50 Classical Pathway TNP 08/25/22 10:00 Blood Type A Positive 08/24/22 21:28 Rho(D) Type Positive 08/24/22 21:28 Antibody Screen Negative 08/24/22 21:28 Crossmatch See Detail 08/24/22 21:28 Vitals Last Vital Signs Temp 98.1 F 08/28/22 11:26 Pulse 85 08/28/22 11:26 Resp 17 08/28/22 11:26 BP 156/112 08/28/22 11:26 Pulse Ox 95 08/28/22 11:26 O2 Del Method 08/28/22 08:00 O2 Flow Rate 2 08/26/22 20:00 Discharge Plan Discharge Patient Disposition: Home Condition: Stable Prescriptions: New Anusol-HC 2.5 % cream with perineal applicator 1 applic SD QID 10 Days Qty: 30 0RF Rx Instructions: May repeat for a second 10 days if no resolution ferrous gluconate 324 mg (37.5 mg iron) Tablet 324 mg PO BIDWM 30 Days Qty: 60 0RF pantoprazole 40 mg Tablet,Delayed Release (Dr/Ec) 40 mg PO BID 30 Days Qty: 60 0RF Eliquis 5 mg tablet See Rx Instructions .ROUTE .COMPLEX Qty: 60 0RF Rx Instructions: 10 mg twice a day x 4 days 5 mg twice a day thereafter Continued albuterol sulfate 90 mcg/actuation Hfa Aerosol Inhaler 2 puff INHALATION Q6H PRN (Reason: Shortness Of Breath Or Wheezing) acetaminophen 325 mg Capsule 650 mg PO QID PRN (Reason: Pain) Discontinued Xulane 150-35 mcg/24 hr patch weekly See Rx Instructions .ROUTE .COMPLEX Rx Instructions: DIRECTED Discharge Orders: Discharge Order (Routine); Ordered 08/28/22 Ordered By: Katrin Estrada Referrals: Jorge Pavon MD [Physician] - 09/04/22 9:30 am Leila Haque NP [Primary Care Provider] - 09/07/22 2:00 pm Chandra Naylor MD [Hospitalist] - (Dr. Naylor's office will call you with an appointment. Your information from your hospital stay has been sent to them for refferral.) Discharge Diet: Cardiac Discharge Activity: Resume usual activity Patient Instructions: Anemia, Pantoprazole (By mouth) (Protonix), Apixaban (By mouth) (Eliquis), Pulmonary Embolism (DC), Deep Vein Thrombosis (DC), Upper Endoscopy (DC), GI Discharge Instructions, Opioid Safety Discharge Attestations Time Spent in Discharge Care*: greater than 30 min Quality Metrics Clinical Quality Measures [ No reported AMI, CVA or VTE this stay] Coding Level of Care Code Acute Code for Chg Fwd Diagnoses Severe anemia D64.9 Deep vein thrombosis of lower extremity I82.409 Pulmonary emboli I26.94 Pulmonary embolism type: multiple subsegmental (without acute cor pulmonale)
[2022-08-28] MEDS: apixaban 5 mg Tablet 10 MG PO (12:49)
[2022-08-28 16:40] LABS: THYROID PEROXIDASE ANTIBODIES 1 IU/mL (<9)
[2022-08-28 16:45] LABS: Partial Thromboplastin Time 29.3 SECONDS (23.9-36.7)
[2022-08-29 02:45] LABS: CARDIOLIPIN AB (IGA) <2.0 APL-U/mL; CARDIOLIPIN AB (IGG) <2.0 GPL-U/mL; CARDIOLIPIN AB (IGM) <2.0 MPL-U/mL
== END 2022-08-28 18:43 | disposition home or self-care (01) | DRG 299 ==
LOC: ER 21:30 → MEDSURG 22:03
PROVIDERS: Student in an Organized Health Care Education/Training Program; Surgery; Admitting Provider Student in an Organized Health Care Education/Training Program; Emergency Provider Emergency Medicine; PCP Nurse Practitioner; Visit Provider Internal Medicine
PROC: 0DJD8ZZ Inspection of Lower Intestinal Tract, Via Natural or Artificial Opening Endoscopic (ICD-10-PCS; CPT 45378; 2022-08-26 11:00)
PROC: 0DJ08ZZ Inspection of Upper Intestinal Tract, Via Natural or Artificial Opening Endoscopic (ICD-10-PCS; CPT 43235; 2022-08-26 11:00)
DX: I82.412 Acute embolism and thrombosis of left femoral vein (principal); I26.94 Multiple subsegmental thrombotic pulmonary emboli without acute cor pulmonale; Z68.43 Body mass index [BMI] 50.0-59.9, adult; I82.432 Acute embolism and thrombosis of left popliteal vein; I82.452 Acute embolism and thrombosis of left peroneal vein; D50.0 Iron deficiency anemia secondary to blood loss (chronic); D64.9 Anemia, unspecified; Z86.718 Personal history of other venous thrombosis and embolism; N92.0 Excessive and frequent menstruation with regular cycle; N85.9 Noninflammatory disorder of uterus, unspecified; Z79.51 Long term (current) use of inhaled steroids; E66.01 Morbid (severe) obesity due to excess calories; R19.5 Other fecal abnormalities; K57.30 Diverticulosis of large intestine without perforation or abscess without bleeding; K64.8 Other hemorrhoids
CPT/HCPCS: 12345; 36415; 36430; 43235; 45378; 71045; 71275; 76830; 76856; 80053; 82274; 82607; 82728; 82746; 83540; 83550; 83735; 84703; 85014; 85018; 85025; 85049; 85730; 86147; 86160; 86162; 86225; 86235; 86255; 86376; 86850; 86900; 86920; 93005; 93306; 93971; 96365; 96366; 96372; 96375; 99285; J1200; J1644; J2250; J2704; J3420; J3490; J7030; P9016; Q9967

== ENCOUNTER 2022-09-03 07:00 | Oncology outpatient (recurring) (ONCR) | payer OTHER, SELFPAY | END 2022-09-11 23:59 | disposition home or self-care (01) | PROVIDERS: PCP Family Medicine; Visit Provider Internal Medicine Medical Oncology | DX: D64.9 Anemia, unspecified (principal) ==

== ENCOUNTER 2022-09-04 12:05 | Outpatient (CLI) | payer OTHER, SELFPAY ==
[2022-09-04 13:06] LABS: Basophils # 0.1 10^3/uL (0.0-0.1); Basophils % 0.6 %; Eosinophils # 0.5 10^3/uL (0.0-0.8); Eosinophils % 5.8 %; Hematocrit 35.1 % (37.0-47.0); Hemoglobin 9.1 g/dL (11.5-15.3); Lymphocytes % 23.6 %; Mean Corpuscular HGB Conc 25.9 g/dL (30.0-36.0); Mean Corpuscular Hemoglobin 19.8 pg (28.0-34.0); Mean Corpuscular Volume 76.3 fl (81-99); Mean Platelet Volume 10.9 fL (7.4-10.4); Monocytes # 0.6 10^3/uL (0.2-0.9); Monocytes % 7.6 %; Neutrophils # 5.18 10^3/uL (1.8-7.7); Neutrophils % 62.2 %; Nucleated Red Blood Cells % 0 %; Platelet Count 394 10^3/cmm (130-400); Red Cell Distribution Width 25.5 % (12.1-15.1); White Blood Count 8.3 10^3/uL (4.0-10.0)
[2022-09-04 13:34] LABS: Ferritin 22 ng/mL (15-150); Follicle Stimulating Hormone 9.3 mIU/mL; Iron 15 ug/dL (37-145); Percent Saturation 4.7 % (20-50); Thyroid Stimulating Hormone 0.88 uIU/mL (0.27-4.20); Total Iron Binding Capacity 318 mcg/dl; Unsaturated Iron Binding 303 ug/dL (112-347)
== END 2022-09-04 12:06 | disposition home or self-care (01) ==
LOC: LAB 12:08
PROVIDERS: PCP Family Medicine; Referring Provider Internal Medicine Medical Oncology; Visit Provider Obstetrics & Gynecology
DX: D50.0 Iron deficiency anemia secondary to blood loss (chronic) (principal); N92.0 Excessive and frequent menstruation with regular cycle; D25.9 Leiomyoma of uterus, unspecified
CPT/HCPCS: 36415; 82728; 83001; 83540; 83550; 84146; 84443; 85025

== ENCOUNTER 2022-09-20 06:28 | Outpatient (CLI) | payer OTHER, SELFPAY ==
--- NOTE | 2022-09-20 07:00 | CT_ITS ---
WS: [id number] CTA OF THE CHEST WITH PULMONARY EMBOLISM PROTOCOL TECHNIQUE: High-resolution contrast enhanced CTA of the chest with coronal and sagittal reformatted i mages with pulmonary embolism protocol. MIP images are also reviewed. CLINICAL INFORMATION: 1 month follow up COMPARISON: CT August 24, 2022 DLP: 593.[address] scans at [facility] use at least one of these dose optimization techniques: automated e xposure control; mA and/or kV adjustment per patient size (includes targeted exams where dose is matc hed to clinical indication); or iterative reconstruction. FINDINGS: Proximal main pulmonary arteries are normal. A few tiny residual filling defects in the segmental and subsegmental pulmonary arteries LEFT greater than RIGHT with a small amount of residual embolus. No evidence of new or progressive embolus. Significant improvement in embolus burden compared to previou s. Previously described RIGHT heart strain with bowing of the intraventricular septum has resolved. Lungs are well aerated. No acute pulmonary infiltrates. No focal pneumonia or pleural fluid. No media stinal or hilar lymphadenopathy. No axillary lymphadenopathy. Cholecystectomy clips. Stable LEFT adre nal adenoma measuring 14 mm. RIGHT adrenal gland is normal. Small esophageal hiatal hernia. CT/CT angio chest PE protcl [id number] IMPRESSION: 1. Interval improvement with near resolution of previously described pulmonary emboli. A few tiny residual filling defects in the LEFT greater than RIGHT seg mental and subsegmental pulmonary arteries. 2. No acute pulmonary infiltrates. 3. Small esophageal hiatal hernia. 4. Resolution of the previously described RIGHT heart strain.
== END 2022-09-20 06:29 | disposition home or self-care (01) ==
LOC: RAD 06:31
PROVIDERS: PCP Family Medicine; Visit Provider Internal Medicine Medical Oncology
DX: I26.94 Multiple subsegmental thrombotic pulmonary emboli without acute cor pulmonale (principal); I26.99 Other pulmonary embolism without acute cor pulmonale; K44.9 Diaphragmatic hernia without obstruction or gangrene
CPT/HCPCS: 71275; Q9967

== ENCOUNTER 2022-09-27 08:00 | Oncology outpatient (recurring) (ONCR) | payer OTHER, SELFPAY ==
[2022-09-20] MEDS: ferric carboxy (IVPB) 750 MG in sodium chloride 0.9% (100 ml) 100 ML 345 MG IV (08:38)
[2022-09-20] MEDS: sodium chloride 0.9% 250 ML 75 ML IV (08:38)
[2022-09-20 09:28] VITALS: BP 126/84; PULSE 81; RESP 16; TEMP 36.6; O2SAT 98
[2022-09-27] MEDS: sodium chloride 0.9% 250 ML 75 ML IV (08:44)
[2022-09-27] MEDS: ferric carboxy (IVPB) 750 MG in sodium chloride 0.9% (100 ml) 100 ML 345 MG IV (08:45)
[2022-09-27 09:45] VITALS: BP 126/86; PULSE 76; RESP 16; TEMP 37; O2SAT 98
== END 2022-10-12 23:59 | disposition home or self-care (01) ==
PROVIDERS: PCP Family Medicine; Visit Provider Internal Medicine Medical Oncology
DX: D50.0 Iron deficiency anemia secondary to blood loss (chronic) (principal); N92.0 Excessive and frequent menstruation with regular cycle; Z79.899 Other long term (current) drug therapy
CPT/HCPCS: 96365; J1439; J7050

== ENCOUNTER → 2022-10-09 08:33 | Outpatient (BNVA) | payer OTHER, SELFPAY | PROVIDERS: PCP Family Medicine; Visit Provider Obstetrics & Gynecology | DX: N92.0 Excessive and frequent menstruation with regular cycle (principal) | CPT/HCPCS: 88305 ==

== ENCOUNTER 2022-10-10 06:47 | Outpatient (CLI) | payer OTHER, SELFPAY ==
--- NOTE | 2022-10-10 07:00 | USCV_ITS ---
Yvette Rust Age: 46 Gender: F : 1975 Exam Date: 10/10/2022 07:02 Ordering Phys: Chandra Naylor MD Technologist: MARIE [place] [facility] [place]: [place]. 1 MONTH FOLLOW UP HISTORY: DVT. Started eliquis 2x/day after DVT found a month ago PROCEDURES: Venous duplex imaging was performed in only the left lower extremity. The following venous structures were evaluated: common femoral vein, profunda vein, proximal portion of the greater saphenous vein, superficial femoral vein, and the popliteal vein. In addition, the posterior tibial and peroneal trunk were evaluated. Serial compression, augmentation maneuvers, and spectral Doppler flow evaluation were performed. FINDINGS: Nonoccluding DVT appears to be present in the peroneal vein and GSV heading into the CFV. All other appear compressable at this time CONCLUSIONS Nonocclusive DVT peroneal, GSV, and CFV. This is persistent but somewhat improved compared to previous 08/24/22. Remainder normal Seferino Archer MD (Electronically Signed) Final Date: 10 October 2022 13:29 S
== END 2022-10-10 06:48 | disposition home or self-care (01) ==
LOC: RAD 06:48
PROVIDERS: PCP Family Medicine; Visit Provider Internal Medicine Medical Oncology
DX: I82.492 Acute embolism and thrombosis of other specified deep vein of left lower extremity (principal)
CPT/HCPCS: 93971

== ENCOUNTER 2022-11-08 13:25 | Oncology outpatient (recurring) (ONCR) | payer OTHER, SELFPAY ==
[2022-11-08 13:55] LABS: Basophils % 0.5 %; Eosinophils # 0.4 10^3/uL (0.0-0.8); Hematocrit 38.3 % (37.0-47.0); Hemoglobin 11.6 g/dL (11.5-15.3); Lymphocytes % 25.2 %; Mean Corpuscular HGB Conc 30.3 g/dL (30.0-36.0); Mean Corpuscular Hemoglobin 27.4 pg (28.0-34.0); Mean Corpuscular Volume 90.3 fl (81-99); Mean Platelet Volume 10.3 fL (7.4-10.4); Monocytes # 0.4 10^3/uL (0.2-0.9); Monocytes % 5.2 %; Neutrophils # 4.98 10^3/uL (1.8-7.7); Neutrophils % 63.8 %; Nucleated Red Blood Cells % 0 %; Platelet Count 297 10^3/cmm (130-400); Red Blood Count 4.24 10^6/uL (4.1-5.3); Red Cell Distribution Width 19.9 % (12.1-15.1); White Blood Count 7.8 10^3/uL (4.0-10.0)
[2022-11-08 14:54] LABS: Ferritin 29 ng/mL (15-150); Iron 23 ug/dL (37-145); Percent Saturation 10.2 % (20-50); Total Iron Binding Capacity 225 mcg/dl; Unsaturated Iron Binding 202 ug/dL (112-347)
== END 2022-11-11 23:59 | disposition home or self-care (01) ==
PROVIDERS: PCP Family Medicine; Visit Provider Internal Medicine Medical Oncology
DX: D50.0 Iron deficiency anemia secondary to blood loss (chronic) (principal)
CPT/HCPCS: 36415; 82728; 83540; 83550; 85025

== ENCOUNTER 2022-12-06 08:00 | Oncology outpatient (recurring) (ONCR) | payer OTHER, SELFPAY ==
[2022-11-19 10:47] VITALS: BP 151/101; PULSE 80; RESP 18; TEMP 36.3; O2SAT 98
[2022-11-19] MEDS: ferric carboxy (IVPB) 750 MG in sodium chloride 0.9% (100 ml) 100 ML 345 MG IV (11:07)
[2022-11-19] MEDS: sodium chloride 0.9% 250 ML 75 ML IV (11:07)
[2022-11-19 11:30] VITALS: BP 132/98
== END 2022-12-12 23:59 | disposition home or self-care (01) ==
PROVIDERS: PCP Family Medicine; Visit Provider Internal Medicine Medical Oncology
DX: Z53.9 Procedure and treatment not carried out, unspecified reason (principal)
CPT/HCPCS: 96365; J1439; J7050

== ENCOUNTER 2022-12-18 14:42 | Outpatient (CLI) | payer OTHER, SELFPAY ==
[2022-12-18 15:51] LABS: Basophils % 0.4 %; Eosinophils # 0.3 10^3/uL (0.0-0.8); Eosinophils % 4.2 %; Hematocrit 44.1 % (37.0-47.0); Lymphocytes # 1.9 10^3/uL (0.8-4.8); Lymphocytes % 27.7 %; Mean Corpuscular HGB Conc 31.7 g/dL (30.0-36.0); Mean Corpuscular Hemoglobin 29.4 pg (28.0-34.0); Mean Corpuscular Volume 92.6 fl (81-99); Mean Platelet Volume 11.1 fL (7.4-10.4); Monocytes # 0.5 10^3/uL (0.2-0.9); Monocytes % 6.7 %; Neutrophils # 4.08 10^3/uL (1.8-7.7); Neutrophils % 60.9 %; Nucleated Red Blood Cells % 0 %; Platelet Count 236 10^3/cmm (130-400); Red Blood Count 4.76 10^6/uL (4.1-5.3); Red Cell Distribution Width 15.9 % (12.1-15.1); White Blood Count 6.7 10^3/uL (4.0-10.0)
[2022-12-18 16:16] LABS: Ferritin 113 ng/mL (15-150); Iron 42 ug/dL (37-145); Percent Saturation 18.2 % (20-50); Total Iron Binding Capacity 230 mcg/dl; Unsaturated Iron Binding 188 ug/dL (112-347)
== END 2022-12-18 14:43 | disposition home or self-care (01) ==
PROVIDERS: PCP Family Medicine; Referring Provider Family Medicine; Visit Provider Internal Medicine Medical Oncology
DX: D50.0 Iron deficiency anemia secondary to blood loss (chronic) (principal)
CPT/HCPCS: 82728; 83540; 83550; 85025

== ENCOUNTER 2023-02-06 07:56 | Oncology outpatient (recurring) (ONCR) | payer OTHER, SELFPAY ==
[2023-02-06 08:02] VITALS: BP 151/100; PULSE 106; RESP 18; TEMP 36.6; O2SAT 97
[2023-02-06 08:17] LABS: Basophils % 0.5 %; Eosinophils # 0.3 10^3/uL (0.0-0.8); Hematocrit 38.7 % (37.0-47.0); Hemoglobin 12.3 g/dL (11.5-15.3); Lymphocytes # 1.7 10^3/uL (0.8-4.8); Lymphocytes % 19.9 %; Mean Corpuscular HGB Conc 31.8 g/dL (30.0-36.0); Mean Corpuscular Hemoglobin 29.6 pg (28.0-34.0); Mean Platelet Volume 11.3 fL (7.4-10.4); Monocytes # 0.5 10^3/uL (0.2-0.9); Monocytes % 5.9 %; Neutrophils # 5.85 10^3/uL (1.8-7.7); Neutrophils % 69.5 %; Nucleated Red Blood Cells % 0 %; Platelet Count 312 10^3/cmm (130-400); Red Blood Count 4.16 10^6/uL (4.1-5.3); Red Cell Distribution Width 14.1 % (12.1-15.1); White Blood Count 8.4 10^3/uL (4.0-10.0)
[2023-02-06 08:45] LABS: Alanine Aminotransferase 15 U/L (0-33); Albumin Level 4.2 g/dL (3.5-5.2); Alkaline Phosphatase 126 U/L (35-105); Aspartate Amino Transferase 21 U/L (0-32); Blood Urea Nitrogen 19 mg/dL (6-20); Calcium 8.7 mg/dL (8.5-10.5); Carbon Dioxide 23 mmol/L (22-29); Chloride 102 mmol/L (98-107); Creatinine Clr Calc Pharmacy 131.8821; Ferritin 28 ng/mL (15-150); Globulin 2.9 g/dL (1.3-4.6); Glomerular Filtration Rate 90.5 mL/min (90-130); Glucose 96 mg/dL (65-115); Iron 26 ug/dL (37-145); Osmolality Calculated 286 mOsm/kg (285-295); Percent Saturation 10.9 % (20-50); Sodium 137 mmol/L (136-145); Total Bilirubin 0.2 mg/dL (0.15-1.2); Total Iron Binding Capacity 237 mcg/dl; Total Protein 7.1 g/dL (6.6-8.7); Unsaturated Iron Binding 211 ug/dL (112-347)
[2023-02-06 08:46] LABS: Anion Gap 16.3 (5-19); Potassium 4.3 mmol/L (3.5-5.1)
== END 2023-02-11 23:59 | disposition home or self-care (01) ==
PROVIDERS: PCP Family Medicine; Visit Provider Internal Medicine Medical Oncology
DX: D50.0 Iron deficiency anemia secondary to blood loss (chronic) (principal)
CPT/HCPCS: 36415; 80053; 82728; 83540; 83550; 85025

== ENCOUNTER 2023-02-20 22:40 | Emergency (ER) | payer OTHER, SELFPAY ==
[2023-02-20 22:44] VITALS: BP 154/105; PULSE 97; RESP 16; TEMP 37; O2SAT 96; BMI 49.4
--- NOTE | 2023-02-20 23:14 | W.ED.BACK ---
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 Patient reports since then she has had right side mid back and rib pain. Patient denies any falls or other injuries. Patient appears nontoxic. Patient does take Eliquis routinely to help prevent blood clots. Associated symptoms: Deny abdominal pain Review of Systems General: Reports: 10 or more systems reviewed and unremarkable except in HPI and below Card: Denies: chest pain Resp: Denies: dyspnea GI: Denies: abdominal pain Musc: Reports: back pain PFSH ED PFSH: Medical History Deep vein thrombosis of lower extremity Iron deficiency anemia Morbid obesity Pulmonary emboli Small bowel obstruction due to adhesions Ventral incisional hernia Surgical History History of colonoscopy (08/26/22) EGD and colonoscopy History of exploratory laparotomy History of varicose vein ligation 2016 History of vein stripping 2016 Hx of cholecystectomy Family History Father CAD (coronary artery disease) Mother Liver disease, alcoholic Deep vein thrombosis Other Cancer Diabetes Denies family history of Bleeding disorder Social History Smoking and tobacco status: never smoked Alcohol intake: current Alcohol intake frequency: holidays/special occasions only Substance/Drug Use: never Physical Exam HENMT: COMMON NORMALS: normocephalic HEAD & SCALP: normocephalic Neck/C-Spine: COMMON NORMALS: full ROM Chest: COMMONS NORMALS: normal inspection of the chest Resp: COMMON NORMALS: normal respiratory effort Cardio: COMMON NORMALS: regular rate RATE: regular rate GI: COMMON NORMALS: non-tender Back/Pelvis: THORACIC SPINE/UPPER BACK: No thoracic spinal tenderness and Yes paraspinal muscle tenderness Thoracic paraspinal muscle tenderness: right LUMBAR SPINE/LOWER BACK: No lumbar spinal tenderness Extremity: COMMON NORMALS: full ROM Skin: COMMON NORMALS: turgor normal GENERAL SKIN EXAM: turgor normal Course Vital Signs: Vital signs: Vital Signs Temperature 98.6 F 02/20/23 22:44 Pulse Rate 97 02/20/23 22:44 Respiratory Rate 16 02/20/23 22:44 Blood Pressure 154/105 02/20/23 22:44 Pulse Oximetry 96 02/20/23 22:44 MDM - Back Pain/Injury Medical Decision Making 47-year-old female comes in today for complaints of right side mid back pain. On exam patient has muscle tenderness in the right paraspinous muscles. Respirations are even lungs are clear to auscultation. Patient was all extremities well. Vital signs are normal except for some elevation in blood pressure. Differential diagnosis includes not limited to costochondritis, muscle strain, intervertebral disc disease, facet arthropathy. 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 Recommended a dose of dexamethasone to help with inflammation and pain. Recommend continuing acetaminophen as needed for pain. Patient requested a muscle relaxer to help with muscle spasms at night. Agreed to plan for muscle relaxer with recommendations for stretching exercises. Patient stated understanding and agreed to plan. Discharge Plan Discharge Patient Disposition: Home Clinical Impression: Thoracic back pain Qualifiers: Chronicity: acute Back pain laterality: right Qualified Code(s): M54.6 - Pain in thoracic spine Condition: Stable Prescriptions: New cyclobenzaprine 10 mg tablet 10 mg PO BID PRN (Reason: muscle spasm) Qty: 20 0RF No Action Cetacaine 2 %-2 %-14 % (200 mg/sec) aerosol,spray 1 spray topical ONCE Qty: 1 0RF ferrous gluconate 324 mg (37.5 mg iron) tablet 324 mg PO BIDWM 30 Days Qty: 60 0RF Eliquis 5 mg tablet 5 mg PO BID Qty: 60 0RF albuterol sulfate 90 mcg/actuation Hfa Aerosol Inhaler 2 puff INHALATION Q6H PRN (Reason: Shortness Of Breath Or Wheezing) acetaminophen 325 mg Capsule 650 mg PO QID PRN (Reason: Pain) Discharge Orders: Discharge ED (Routine); Ordered 02/20/23 Ordered By: Trace Jacobson Referrals: Ori Smith MD [Primary Care Provider] - Discharge Diet: Usual diet Discharge Activity: Increase activity as tolerated Patient Instructions: Thoracic Back Strain (ED) Activity Restrictions/Additional Instructions: Activity as tolerated. Gentle stretching and range of motion exercises. Use acetaminophen to help with pain. Use ice or heat for further pain relief. Use muscle relaxer for muscle spasms. Follow-up with primary care for further complaints or no improvement of pain. You may need further evaluation or possibility of physical therapy. Return to ER for new concerns. Coding Level of Care Code ED Plant Maintenance Technician for Kylie Rodriguez
[2023-02-20] MEDS: dexamethasone 10 mg/mL INJ IM (23:31)
[2023-02-20 23:36] VITALS: PULSE 84; RESP 16; O2SAT 99
== END 2023-02-20 23:36 | disposition home or self-care (01) ==
PROVIDERS: Emergency Provider Nurse Practitioner Family; PCP Family Medicine
DX: M54.6 Pain in thoracic spine (principal); E66.01 Morbid (severe) obesity due to excess calories; Z68.42 Body mass index [BMI] 45.0-49.9, adult; Z79.01 Long term (current) use of anticoagulants; Z79.899 Other long term (current) drug therapy; Z86.718 Personal history of other venous thrombosis and embolism; Z86.711 Personal history of pulmonary embolism
CPT/HCPCS: 96372; 99284; J1100

== ENCOUNTER 2023-02-25 08:49 | Oncology outpatient (recurring) (ONCR) | payer OTHER, SELFPAY ==
[2023-02-25 09:22] VITALS: BP 154/91; PULSE 73; RESP 18; TEMP 36.5; O2SAT 97
[2023-02-25 09:38] LABS: Basophils # 0.1 10^3/uL (0.0-0.1); Basophils % 0.7 %; Eosinophils # 0.2 10^3/uL (0.0-0.8); Eosinophils % 2.7 %; Hematocrit 39.2 % (37.0-47.0); Hemoglobin 12.5 g/dL (11.5-15.3); Lymphocytes # 1.8 10^3/uL (0.8-4.8); Lymphocytes % 24.2 %; Mean Corpuscular HGB Conc 31.9 g/dL (30.0-36.0); Mean Corpuscular Hemoglobin 29.5 pg (28.0-34.0); Mean Corpuscular Volume 92.5 fl (81-99); Mean Platelet Volume 10.6 fL (7.4-10.4); Monocytes # 0.4 10^3/uL (0.2-0.9); Monocytes % 5.4 %; Neutrophils % 66.6 %; Nucleated Red Blood Cells % 0 %; Platelet Count 334 10^3/cmm (130-400); Red Blood Count 4.24 10^6/uL (4.1-5.3); Red Cell Distribution Width 13.3 % (12.1-15.1); White Blood Count 7.4 10^3/uL (4.0-10.0)
[2023-02-25 10:08] LABS: Albumin Level 4.1 g/dL (3.5-5.2); Potassium 4.5 mmol/L (3.5-5.1)
[2023-02-25 10:39] LABS: Alanine Aminotransferase 14 U/L (0-33); Alkaline Phosphatase 138 U/L (35-105); Anion Gap 13.5 (5-19); Aspartate Amino Transferase 13 U/L (0-32); Blood Urea Nitrogen 15 mg/dL (6-20); Carbon Dioxide 26 mmol/L (22-29); Chloride 100 mmol/L (98-107); Creatinine Clr Calc Pharmacy 152.1666; Globulin 2.8 g/dL (1.3-4.6); Glomerular Filtration Rate 108.1 mL/min (90-130); Glucose 99 mg/dL (65-115); Osmolality Calculated 281 mOsm/kg (285-295); Sodium 135 mmol/L (136-145); Total Bilirubin 0.4 mg/dL (0.15-1.2); Total Protein 6.9 g/dL (6.6-8.7)
[2023-02-28 04:25] LABS: Antithrombin III Activity 111 % normal (80-135)
[2023-02-28 11:39] LABS: Protein S Antigen, Total 105 % normal (70-140)
[2023-03-01 02:21] LABS: CARDIOLIPIN AB (IGA) <2.0 APL-U/mL; CARDIOLIPIN AB (IGG) <2.0 GPL-U/mL; CARDIOLIPIN AB (IGM) <2.0 MPL-U/mL
[2023-03-01 05:33] LABS: PROTEIN C, ACTIVITY 123 % normal (70-180)
[2023-03-02 01:40] LABS: Factor 5 Leiden Mutation NEGATIVE
[2023-03-02 02:19] LABS: Beta 2 Glycoprotein IGA <2.0 U/mL (<20.0); Beta 2 Glycoprotein IGG <2.0 U/mL (<20.0); Beta 2 Glycoprotein IGM <2.0 U/mL (<20.0)
[2023-03-05 20:44] LABS: PROTHROMBIN (FACTOR II) 20210G NEGATIVE
== END 2023-03-14 23:59 | disposition home or self-care (01) ==
PROVIDERS: PCP Family Medicine; Visit Provider Internal Medicine Medical Oncology
DX: D50.0 Iron deficiency anemia secondary to blood loss (chronic) (principal)
CPT/HCPCS: 36415; 80053; 81241; 85025; 85210; 85300; 85303; 85305; 86146; 86147

== ENCOUNTER 2023-02-26 14:21 | Observation (INO) | payer OTHER, SELFPAY ==
[2023-02-25 11:10] VITALS: BMI 51.2
[2023-02-25 11:42] LABS: Add Urine Microscopic? YES; Bacteria Urine TRACE /hpf; Bilirubin Urine Neg (Negative); Blood Urine 3+ (Negative); Glucose Urine UA Norm (Normal); Ketones Urine Negative (Negative); Leukocyte Esterase Urine Negative (Negative); Nitrate Urine Negative (Negative); Protein Urine Neg (Negative); RBC Urine 0-4 /hpf (0-2); Specific Gravity, Urine 1.025 (1.005-1.030); Urine Appearance Clear (CLEAR); Urine Color Yellow (Yellow); Urobilinogen Urine Norm (Negative); WBC Urine RARE /hpf (0-5); pH Urine 5 (5-7)
[2023-02-25 11:43] LABS: Add Urine Culture? No
--- NOTE | 2023-02-25 14:08 | ANES.PREANE2 ---
Pre-Anesthetic Assessment Height/Weight: Height 1.57 m Weight 127.006 kg Operation Date: 02/26/23 07:00 Proposed Procedures p Total Vaginal Hysterectomy(Not Applicable) - Jorge Pavon MD Familial anesthetic complications: PONV Was Beta Cm taken within 24 hours: N/A Was Clonidine taken within 24 hours: N/A Social No alcohol and No tobacco Exam alert, oriented x 3, clear to auscultation bilaterally and regular rate & rhythm Airway Submandibular: within normal limits Cervical ROM: within normal limits Mallampati: Class II Dentition: full Pulmonary Asthma CV/HEM Anemia and Deep Vein Thrombosis (PE) Metabolic Morbid Obesity Anesthetic Plan ASA status: 3 Anesthesia: General Medications/Allergies Home Medications Medication Instructions Recorded Confirmed Last Taken Type acetaminophen 325 mg capsule 650 mg PO QID PRN Pain 08/25/22 02/25/23 02/20/23 History albuterol sulfate 90 mcg/actuation 2 puff inhalation Q6H PRN 08/25/22 02/25/23 Unknown History aerosol inhaler Shortness Of Breath Or Wheezing ferrous gluconate 324 mg (37.5 mg 324 mg PO BIDWM 30 days #60 tabs 09/27/22 02/25/23 02/20/23 Rx iron) tablet apixaban 5 mg tablet (Eliquis) 5 mg PO BID #60 tabs 02/07/23 02/25/23 02/20/23 Rx Allergies Allergy/AdvReac Type Severity Reaction Status Date / Time No Known Allergies Allergy Verified 02/25/23 07:56 [facility] Anesthesia Medical History Deep vein thrombosis of lower extremity Iron deficiency anemia Morbid obesity Pulmonary emboli Small bowel obstruction due to adhesions Ventral incisional hernia Surgical History History of colonoscopy (08/26/22) EGD and colonoscopy History of exploratory laparotomy History of varicose vein ligation 2015 History of vein stripping 2016 Hx of cholecystectomy Family History Father CAD (coronary artery disease) Mother Liver disease, alcoholic Deep vein thrombosis Other Cancer Diabetes Denies family history of Bleeding disorder Social History Smoking and tobacco status: never smoked Alcohol intake: current Alcohol intake frequency: holidays/special occasions only Substance/Drug Use: never Data Anesthesia Urine 02/25/23 Range/Units 11:00 Urine Color Yellow (Yellow) Urine Appearance Clear (CLEAR) Urine pH 5 (5-7) Ur Specific [place] 1.025 (1.005-1.030) Urine Protein Neg (Negative) Urine Glucose (UA) Norm (Normal) Urine Ketones Negative (Negative) Urine Nitrate Negative (Negative) Urine Bilirubin Neg (Negative) Ur Leukocyte Esterase Negative (Negative) Urine RBC 0-4 H (0-2) /hpf Urine WBC Rare (0-5) /hpf Blood Bank 02/25/23 11:00 Blood Type A Positive Rho(D) Type Positive Antibody Screen Negative Cardiac Studies: Echocardiogram 08/25/22
[2023-02-26] VITALS (16 sets, daily range): BP systolic 112–174; BP diastolic 74–118; PULSE 55–88; RESP 12–171; TEMP 36.1–37.2; O2SAT 94–99; BMI 51.2
--- NOTE | 2023-02-26 07:54 | ECG_ITS ---
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 Measurements Intervals [place] Rate: 72 P: 3 [place]: 180 QRS: -17 QRSD: 133 T: 6 QT: 388 QTc: 427 Interpretive Statements SINUS RHYTHM MODERATE VOLTAGE CRITERIA FOR LVH, CONSIDER NORMAL VARIANT POSSIBLE ANTEROLATERAL MYOCARDIAL INFARCTION , PROBABLY OLD Compared to ECG 08/24/2022 20:26:35 Intraventricular conduction delay now present Sinus tachycardia no longer present Myocardial infarct finding still present Electronically Signed On 02-26-2023 12:03:27 CDT by Agnes Stallings M.D. [id number]
[2023-02-26 08:08] LABS: OR HCG Qualitative Urine Negative (Negative)
--- NOTE | 2023-02-26 08:22 | P.ANESUD_ITS ---
Pre-Anesthetic Update Pre-Anesthetic Assessment: Date of Surgery/Procedure: 02/26/23 Preop Lucita gnosis: menorrhagia, fibroid, stress urinary incontinence Proposed Procedure: Operation Date: 02/26/23 09:25 Proposed Procedures p Total Vaginal Hysterectomy(Not Applicable) - Jorge Pavon MD Any changes to Pre-Anesthetic Assessment?: No Last Intake: Intake Last Liquid Date 02/25/23 Last Liquid Time 23:55 Last Solid Date 02/25/23 Last Solid Time 22:00 Labs Last 48hrs: Urine 02/25/23 Range/Units 11:00 Urine Color Yellow (Yellow) Urine Appearance Clear (CLEAR) Urine pH 5 (5-7) Ur Specific [place] 1.025 (1.005-1.030) Urine Protein Neg (Negative) Urine Glucose (UA) Norm (Normal) Urine Ketones Negative (Negative) Urine Nitrate Negative (Negative) Urine Bilirubin Neg (Negative) Ur Leukocyte [place] ase Negative (Negative) Urine RBC 0-4 H (0-2) /hpf Urine WBC Rare (0-5) /hpf Blood Bank 02/25/23 11:00 Blood Type A Positive Rho(D) Type Positive Antibody Screen Negative Vitals: Temperature 97.5 F L 02/26/23 08:15 Temperature Source Temporal Artery S can 02/26/23 08:15 Pulse Rate 86 02/26/23 08:15 Pulse Rhythm Regular 02/26/23 08:20 Respiratory Rate 16 02/26/23 08:15 Blood Pressure 165/118 02/26/23 08:15 Blood Pressure Ev n 133 02/26/23 08:15 Pulse Oximetry 96 02/26/23 08:15 Oxygen Delivery Me thod Room Air 02/26/23 08:20 Exam: Pre-Anes Outpt Exam: alert, oriented x 3, clear to auscultation bilaterally and regular rate & rhythm Cardiac Studies: Echocardiogram 08/25/22
[2023-02-26] MEDS: scopolamine 1.5 Patch 1 PATCH TRANSDERMA (08:57)
[2023-02-26] MEDS: ondansetron 2 mg/ML SDV 2 mL 4 MG IVP (08:57)
[2023-02-26] MEDS: sodium chloride 0.9% 500 ML IV (08:58)
[2023-02-26] MEDS: enoxaparin 40 mg/0.4 mL Syringe SUBCUT (08:58)
[2023-02-26] MEDS: diphenhydrAMINE 50 mg/mL SDV 1mL 12.5 MG IVP (09:28)
[2023-02-26] MEDS: sodium chloride 0.9% 1,000 ML 30 ML IV (09:43)
[2023-02-26 10:31] LABS: INR 0.94 (0.8-1.2)
--- NOTE | 2023-02-26 10:39 | W.PM.OPSUD ---
Surgery/Procedure H&P Update DATE OF PROCEDURE: February 26, 2023 DATE H&P PERFORMED: 02/25/23 H&P UPDATE INFORMATION: I have reviewed H&P completed within last 30 days, I have examined patient prior to procedure and No changes to prior documentation PREOP DIAGNOSIS: menorrhagia, fibroid, stress urinary incontinence PLANNED PROCEDURE: Operation Date: 02/26/23 09:25 Proposed Procedures p Total Vaginal Hysterectomy(Not Applicable) - Jorge Pavon MD
[2023-02-26] MEDS: ceFAZolin 3,000 MG in sodium chloride 0.9% (100 ml) 100 ML 200 MG IV (11:14)
[2023-02-26] MEDS: lidocaine-epi 2% 20 mL INJ INJECTION ×2 (12:32→13:23)
[2023-02-26] MEDS: estrogens Conjugated Cream 30 gm 1 APPLIC VAGINAL (13:28)
--- NOTE | 2023-02-26 14:04 | P.OP_ITS ---
Operative Report Date of procedure: February 26, 2023 Pre-op diagnosis: Preop Diagnosis menorrhagia, fibroid, stress urinary incontinence Post-op diagnosis: same Post-op findings: Enlarged uterus Procedure done: Total vaginal hysterectomy. Single incision midurethral sling Implants: Coloplast Altis Sling Specimens removed/disposition: Uterus Surgeon: Jorge Pavon MD Estimated blood loss (mL): 300 IV fluids (mL): 1,000 Urine output (mL): 300 Complications: Bleeding Procedure: After informed consent and risks, benefits, indications and alternatives reviewed with the patient was taken to the operating room. The patient was placed in dorsal lithotomy position prepped, and draped in the usual sterile fashion. The pre-procedure timeout verifying the correct patient, procedure, site and side, could not requirements was performed and acknowledge by the OR team. A Scales catheter was placed. A Bookwalter vaginal retractor was placed into the vagina in usual manner visualize the cervix. Cervix was grasped with a single tooth tenaculum and circumferentially infiltrated with 2% lidocaine with epinephrine. Then cervix was circumferentially incised with bovie and the bladder was dissected off the pubovesical cervical fascia anteriorly with a sponge stick and Metzenbaum scissors. The anterior peritoneal reflection was identified and the anterior cul-de-sac was entered sharply with Metzenbaum scissors. The same procedure was performed posteriorly and a posterior colpotomy was made through the posterior cul-de-sac space without difficulty and the posterior blade of the Bookwalter vaginal retractor was advanced posteriorly into the cul-de-sac. At this time, the left and right uterosacral ligaments were isolated and ligated with 0 Vicryl. The LigaSure, Voyant device was placed over the uterosacral ligaments on either side and was then used in a serial fashion up through the cardinal ligaments bilaterally cross-clamped, cut, and sealed with the LigaSure device. Finally, the uterine arteries were cross-clamped, cut, sealed and ligated with the LigaSure device. Hemostasis was assured. The broad ligaments were then serially clamped, sealed and cut with the LigaSure were device on both sides. Excellent hemostasis was visualized. Both cornua were clamped, sealed and cut with the LigaSure were device. Then the pedicles were then suture ligated with excellent hemostasis. The uterus was excised and submitted for pathologic evaluation. No other abnormalities were noted in the pelvic cavity. Then the right side Infundibular ligament was identified. The ureter was confirmed along the pelvic side wall and peristalsis was noted. The LigaSure device was then used to clamp, sealed and transcepted at middistance, again being sure to be clear of the ureter and the fallopian tube and ovary were removed. The same process was then repeated on the left side. Good hemostasis was assure on both sides. The peritoneum was then closed in a pursestring fashion with 0 Vicryl suture. The vaginal cuff angles were closed with [id number] #0 Vicryl suture on both sides and transfixed with the ipsilateral cardinal and uterosacral ligaments. The remainder of the vaginal cuff was closed with #0 Vicryl in a running locked fashion. At this time, instruments were removed from the vagina at hemostasis assured. Then the Scales catheter was noted yielding clear blue urine. Proceeded to perform the single incision mid urethral sling. The anterior vaginal mucosa beneath the midurethra was infiltrated with 0.5% Marcaine with epinephrine. A vertical midline incision was made beneath the midurethra, nearly 1.5 cm length. Careful submucosal dissection was performed bilaterally up to the interior portion of the inferior pubic ramus. The ins ertion of adductor longus tendon on the patient?s pubic ramus was identified as reference land maico. Palpated the notch along the internal edge of ischiopubic ramus where the adductor longus tendon and the inferior pubic ramus meet. The Altis single incision sling (SIS) was selected. Then the needle of the SIS inserted aiming at the location of this notch. One of the integrated self- fixating tips place onto the needle by sliding it over the end of the needle. The needle/sling assembly was inserted toward the location of identified reference notch making sure that the flat of the handle is perpendicular to the desired path. The needle was tracked along the posterior surface of the ischiopubic ramus until the midline maico on the mesh is approximately at the midline position under the urethra. The needle was removed and the same was repeated on the contralateral side until the appropriate sling tension under the urethra was achieved ensuring that the mesh lays flat. The needle was removed and vaginal incision was closed in a running interlocking fashion with 2-0 Vicryl. A vaginal packing with Premarin cream was placed and the patient was taken out of dorsal lithotomy position and awakened from the general anesthesia. The patient tolerated the procedure well and was taken to the PACU recovery room in a stable condition. Sponge, lap, needle and instruments counts were correct x3.
[2023-02-26] MEDS: dextrose 5%-lactated ringers 1,000 ML 125 ML IV ×2 (15:19→23:07)
[2023-02-26] MEDS: HYDROcodone-acetaminophen 5-325 mg Tablet PO (15:49)
--- NOTE | 2023-02-26 16:09 | ANE.PACU2 ---
Inpatient post-anesthesia follow up: Airway intact: Yes Vital signs: Temperature 97.0 F Pulse Rate 56 Respiratory Rate 171 Blood Pressure 137/82 Pulse Oximetry 95 Oxygen Delivery Me thod Nasal Cannula Oxygen Flow Rate 2 Fraction of Inspir ed Oxygen Hydration adequate: Yes Nausea and vomiting: No Pain level: 4 Mental status: Baseline
--- NOTE | 2023-02-26 17:27 | PC.NURSE ---
patient reports pain in right leg radiating down from hip, this nurse informed Dr. Pavon and administered PRN pain med, no further orders
[2023-02-26] MEDS: docusate sodium 100 mg Capsule PO (20:52)
[2023-02-26] MEDS: ferrous gluconate 324 mg Tablet PO (20:52)
[2023-02-26] MEDS: apixaban 5 mg Tablet PO (20:52)
[2023-02-27 02:00] VITALS: BP 142/96; PULSE 75; RESP 16; TEMP 36.8; O2SAT 97
[2023-02-27] MEDS: HYDROcodone-acetaminophen 5-325 mg Tablet PO ×2 (02:07→16:55)
[2023-02-27 04:04] VITALS: BP 123/82; PULSE 70; RESP 15; TEMP 36.8; O2SAT 96
[2023-02-27 05:26] LABS: Hematocrit 34.4 % (37.0-47.0); Hemoglobin 10.4 g/dL (11.5-15.3); Mean Corpuscular HGB Conc 30.2 g/dL (30.0-36.0); Mean Corpuscular Volume 95.8 fl (81-99); Mean Platelet Volume 10.9 fL (7.4-10.4); Platelet Count 317 10^3/cmm (130-400); Red Blood Count 3.59 10^6/uL (4.1-5.3); Red Cell Distribution Width 13.4 % (12.1-15.1); White Blood Count 8.9 10^3/uL (4.0-10.0)
[2023-02-27] MEDS: docusate sodium 100 mg Capsule PO ×2 (08:59→16:56)
[2023-02-27] MEDS: apixaban 5 mg Tablet PO (08:59)
[2023-02-27 09:00] VITALS: BP 144/84; PULSE 76; RESP 16; TEMP 37.4
--- NOTE | 2023-02-27 10:29 | PM.OBGYDC ---
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 Rust 47-year-old female G0, P0 with abnormal uterine bleeding unresponsive to medical management leading to anemia, and urinary stress incontinence. Hospital Course Hospital Course Mrs. Brennan 47-year-old female G0, P0 admitted for planned total vaginal hysterectomy and single incision mid urethral sling. The procedures were performed without complication. Overnight observation was uneventful. Tolerating diet well. Ambulating without difficulty. Refers mild discomfort on right hip. She was counseled regarding weight lifting limitations greater than 10 pounds and pelvic rest for 6 weeks (no sex, no tampons, no vaginal douches). Return to the emergency room if any fever, increased bleeding or pain. Physical Exam Narrative: GA: Alert and oriented ?3. HEENT: WNL. Heart: Regular rate and rhythm. Lungs: Clear to auscultation bilaterally. 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 Extremities: No edema, no cyanosis, no calves pain. Urinary Catheter Management: Scales: Cath Placed During This Visit: yes, but has since been removed by the nurse Reason for Continuing Indwelling Catheter: Perioperative Use in Selected Surgeries Date Urinary Catheter Removed: 02/27/23 Time Urinary Catheter Discontinued: 04:58 History History History 0 Term Miscarriages/Ectopic Living Children Discharge Data Studies Completed and Pending Pending at discharge Category Date Time Status Pathology: Surgical [PTH] Routine Pth 02/26/23 14:02 Received Laboratory Results WBC 8.9 10^3/uL (4.0-10.0) 02/27/23 05:00 RBC 3.59 10^6/uL (4.1-5.3) L 02/27/23 05:00 Hgb 10.4 g/dL (11.5-15.3) L 02/27/23 05:00 Hct 34.4 % (37.0-47.0) L 02/27/23 05:00 MCV 95.8 fl (81-99) 02/27/23 05:00 MCH 29.0 pg (28.0-34.0) 02/27/23 05:00 MCHC 30.2 g/dL (30.0-36.0) 02/27/23 05:00 RDW 13.4 % (12.1-15.1) 02/27/23 05:00 Plt Count 317 10^3/cmm (130-400) 02/27/23 05:00 MPV 10.9 fL (7.4-10.4) H 02/27/23 05:00 PT 12.80 SECONDS (12.1-14.9) 02/26/23 09:45 INR 0.94 (0.8-1.2) 02/26/23 09:45 Urine Color Yellow (Yellow) 02/25/23 11:00 Urine Appearance Clear (CLEAR) 02/25/23 11:00 Urine pH 5 (5-7) 02/25/23 11:00 Ur Specific [place] 1.025 (1.005-1.030) 02/25/23 11:00 Urine Protein Neg (Negative) 02/25/23 11:00 Urine Glucose (UA) Norm (Normal) 02/25/23 11:00 Urine Ketones Negative (Negative) 02/25/23 11:00 Urine Blood 3+ (Negative) H 02/25/23 11:00 Urine Nitrate Negative (Negative) 02/25/23 11:00 Urine Bilirubin Neg (Negative) 02/25/23 11:00 Urine Urobilinogen Norm mg/dL (Negative) 02/25/23 11:00 Ur Leukocyte Esterase Negative (Negative) 02/25/23 11:00 Urine RBC 0-4 /hpf (0-2) H 02/25/23 11:00 Urine WBC Rare /hpf (0-5) 02/25/23 11:00 Ur Squamous Epith Cells 5-10 /hpf (0-5) H 02/25/23 11:00 Amorphous Sediment Not Reportable 02/25/23 11:00 Urine Bacteria Trace /hpf (NONE) 02/25/23 11:00 Urine HCG, Qual Negative (Negative) 02/26/23 07:55 Blood Type A Positive 02/25/23 11:00 Rho(D) Type Positive 02/25/23 11:00 Antibody Screen Negative 02/25/23 11:00 Vitals Last Vital Signs Temp 98.3 F 02/27/23 04:04 Pulse 70 02/27/23 04:04 Resp 15 02/27/23 04:04 BP 123/82 02/27/23 04:04 Pulse Ox 96 02/27/23 04:04 O2 Del Method Room Air 02/27/23 04:04 O2 Flow Rate 2 02/26/23 17:00 Discharge Plan Discharge Patient Disposition: Home Condition: Stable Prescriptions: New hydrocodone-acetaminophen 5-325 mg tablet 1 tab PO Q4H PRN (Reason: pain) Qty: 20 0RF ibuprofen 800 mg tablet 800 mg PO TID PRN (Reason: pain) Qty: 60 0RF acetaminophen 325 mg capsule 325 mg PO Q4H PRN (Reason: fever or postoperative pain) Qty: 60 0RF docusate sodium [Colace] 100 mg capsule 100 mg PO BID Qty: 60 0RF ferrous sulfate [Iron (ferrous sulfate)] 325 mg (65 mg iron) tablet 325 mg PO BID Qty: 60 0RF Continued ferrous gluconate 324 mg (37.5 mg iron) tablet 324 mg PO BIDWM 30 Days Qty: 60 0RF Eliquis 5 mg tablet 5 mg PO BID Qty: 60 0RF albuterol sulfate 90 mcg/actuation Hfa Aerosol Inhaler 2 puff INHALATION Q6H PRN (Reason: Shortness Of Breath Or Wheezing) acetaminophen 325 mg Capsule 650 mg PO QID PRN (Reason: Pain) Discharge Orders: Discharge Order (Routine); Ordered 02/27/23 Ordered By: Jorge Pavon Referrals: Jorge Pavon MD [Physician] - 03/11/23 2:30 pm (2 week post-op: 03/11/23 @2:30 6 week post-op: 04/04/23 @8:30) Discharge Diet: Usual diet Discharge Activity: Limit activity as instructed Patient Instructions: Vaginal Hysterectomy (DC), OB Discharge Report, OB Food/Drug Interaction Guide, Opioid Safety Activity Restrictions/Additional Instructions: 1. Please call [facility] on next working day to make your post-operative appointment in 2 weeks. 2. Please stay home until you come back to the clinic on first post-hospatilization check up. 3. Please follow instructions on your medications CAREFULLY. 4. If you have abdominal incision, do not cover it unless dressing is necessary because of drainage. OK to shower, but avoid bath. Leave steri-strips until they fall off. If they are still on one week after surgery, you may remove them. 5. If you had vaginal surgery or vaginal repair, Dr. Pavon may instruct you to take SITZ bath. 6. Yellow, blood tinged odorous vaginal discharge is usually normal after hysterectomy or vaginal surgeries. 7. No SEXUAL INTERCOURSE, tampons, or douches until you are completely released from the post-operative care. 8. Avoid constipation by eating right and maybe using some Metamucil or Milk of Magnesia. 9. All prescription refills are given during the working hours. Please do no wait till it runs out. Call the clinic at [phone] before your medication runs out. The clinic will get in touch with your doctor to prescribe medications if necessary. 10. Please remain within 40 mile radius from our hospital because emergencies do happen now and then during the post-operative period. 11. If you have stairs at home, take one step at a time slowly and minimize the number of trips. It helps to stay in one floor for the next few days. No lifting except what you can lift by one hand until you are released from the post-operative care. 12. Driving is discouraged until you are well healed. It may be 3-4 weeks before you feel strong enough to drive. You should be able to turn and look through the rear window without pain and you should be able to push the brake pedal very hard without pain before you drive. No fast rules, but SAFETY should be your primary concern. DO NOT drive if you are on sedating medications such as narcotics. 13. Call the clinic (during working hours) to make urgent appointment or go to the Emergency room, if any of the following occurs: i. Vaginal bleeding becomes heavy, more than a period. ii. Incision becomes red and sore, or drains pus. iii. Your TEMPERATURE is over 100.4F or you have chill. iv. IV site becomes red and swollen (a little ``knot?? is usually OK) v. Persistent nausea and vomiting vi. Persistent constipation or diarrhea vii. Rash or allergic reaction to medications. 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
[2023-02-27 17:02] VITALS: BP 152/99; PULSE 80; RESP 16; TEMP 37.2
== END 2023-02-27 17:07 | disposition home or self-care (01) ==
LOC: OBGYN 14:25
PROVIDERS: Anesthesiology; Admitting Provider Obstetrics & Gynecology; PCP Family Medicine; Visit Provider Obstetrics & Gynecology
PROC: (CPT 57288; principal; 2023-02-26 09:25)
PROC: (CPT 57288; 2023-02-26 09:25)
DX: N39.3 Stress incontinence (female) (male) (principal); N92.0 Excessive and frequent menstruation with regular cycle; D50.9 Iron deficiency anemia, unspecified; I45.9 Conduction disorder, unspecified; E66.01 Morbid (severe) obesity due to excess calories; Z68.43 Body mass index [BMI] 50.0-59.9, adult; Z79.899 Other long term (current) drug therapy; Z79.01 Long term (current) use of anticoagulants; Z86.711 Personal history of pulmonary embolism
CPT/HCPCS: 57288; 58260; 36415; 51798; 81001; 81025; 84703; 85027; 85610; 86850; 86900; 88305; 93005; C1713; G0378; J0690; J1100; J1170; J1200; J1650; J2250; J2405; J2704; J2710; J3010; J3490; J7030; J7040; J7121

== ENCOUNTER 2023-04-16 00:24 | Emergency (ER) | payer OTHER, SELFPAY ==
[2023-04-16 00:30] VITALS: BP 157/98; PULSE 78; RESP 16; TEMP 36.6; O2SAT 97; BMI 51.2
--- NOTE | 2023-04-16 00:44 | XRR_ITS ---
PROCEDURE INFORMATION: Exam: XR Right Shoulder Exam date and time: 04/16/2023 12:47 AM Age: 47 years old Clinical indication: Injury or trauma; Fall TECHNIQUE: Imaging protocol: Radiologic exam of the right shoulder. Views: 2 or more views. COMPARISON: CR XR chest 1V portable [id number] 08/24/2022 6:36 PM FINDINGS: Bones/joints: Normal. Soft tissues: Normal. XR/XR shoulder RT min 2V* [id number] IMPRESSION: No acute findings.
--- NOTE | 2023-04-16 00:44 | XRR_ITS ---
PROCEDURE INFORMATION: Exam: XR Right Elbow Exam date and time: 04/16/2023 12:56 AM Age: 47 years old Clinical indication: Injury or trauma; Fall; Injury details: Patient fell on Saturday and has posterior elbow pain; Patient HX: Lateral wrist image is in with the elbow TECHNIQUE: Imaging protocol: Radiologic exam of the right elbow. Views: 3 or more views. COMPARISON: CR (UP EX, ) 04/16/2023 12:52 AM FINDINGS: Bones/joints: Normal. Soft tissues: Normal. XR/XR elbow RT min 3V* [id number] IMPRESSION: No acute findings.
--- NOTE | 2023-04-16 00:44 | XRR_ITS ---
PROCEDURE INFORMATION: Exam: XR Right Wrist Exam date and time: 04/16/2023 12:52 AM Age: 47 years old Clinical indication: Injury or trauma; Fall TECHNIQUE: Imaging protocol: Radiologic exam of the right wrist. Views: 3 or more views. COMPARISON: No relevant prior studies available. FINDINGS: Bones/joints: Normal. Soft tissues: Normal. XR/XR wrist RT min 3V* [id number] IMPRESSION: No acute findings.
--- NOTE | 2023-04-16 00:44 | W.ED.EXTPRO ---
HPI - Extremity Problem General: Chief complaint: Extremity Injury, Upper Stated complaint: hurt right arm Time Seen by Provider: 04/16/23 00:39 Source: patient Mode of arrival: ambulatory Limitations: no limitations History of Present Illness: 47-year-old female states that Saturday night she fell she fell on her left arm she states that her whole arm hurts. States her main pain that was in her right elbow. States is painful when she moves her elbow states that she does feel sore in her wrist and shoulder rates pain a 6 out of 10 its improved with rest denies any other injuries. Associated symptoms: Deny chest pain, fever(s) or rash Review of Systems Const: Denies: fever(s) or chills Eyes: Denies: eye discomfort ENMT: Denies: throat pain or dental pain Card: Denies: chest pain Resp: Denies: dyspnea GI: Denies: abdominal pain, nausea, vomiting or diarrhea Musc: Reports: extremity pain; Denies: neck pain or back pain Skin/Breast: Denies: rash Neuro: Denies: headache(s) PFSH ED PFSH: Medical History Deep vein thrombosis of lower extremity Iron deficiency anemia Morbid obesity Pulmonary emboli Small bowel obstruction due to adhesions Ventral incisional hernia Surgical History History of colonoscopy (08/26/22) EGD and colonoscopy History of exploratory laparotomy History of varicose vein ligation 2016 History of vein stripping 2016 Hx of cholecystectomy Family History Father CAD (coronary artery disease) Mother Liver disease, alcoholic Deep vein thrombosis Other Cancer Diabetes Denies family history of Bleeding disorder Social History Smoking and tobacco status: never smoked Alcohol intake: current Alcohol intake frequency: holidays/special occasions only Substance/Drug Use: never Physical Exam Const: COMMON NORMALS: no acute distress and patient oriented x3 HENMT: COMMON NORMALS: normocephalic and atraumatic HEAD & SCALP: normocephalic and atraumatic Eye: COMMON NORMALS: conjunctivae normal CONJUNCTIVA: Yes conjunctivae normal Neck/C-Spine: COMMON NORMALS: supple Chest: COMMONS NORMALS: normal inspection of the chest Resp: COMMON NORMALS: normal respiratory effort Extremity: NARRATIVE EXTREMITY EXAM: tenderness over right elbow with painful rom no obvious deformity Neuro: COMMON NORMALS: patient oriented x3 Psych: COMMON NORMALS: mental status grossly normal Skin: COMMON NORMALS: no rashes or lesions noted GENERAL SKIN EXAM: no rashes or lesions noted Course Vital Signs: Vital signs: Vital Signs Temperature 97.8 F 04/16/23 00:30 Pulse Rate 78 04/16/23 00:30 Respiratory Rate 16 04/16/23 00:30 Blood Pressure 157/98 04/16/23 00:30 Pulse Oximetry 97 04/16/23 00:30 Oxygen Delivery Me thod Room Air 04/16/23 00:30 MDM - Extremity (Nontraumatic) Medical Decision Making Patient presents for right elbow injury from a fall x-ray showed no obvious fracture possible small joint effusion she does have pain with range of motion we will place her in a sling she is to resume activity as tolerated we will get her follow-up with orthopedics. Medical Records I reviewed the patient's medical records. XR interpretation done by ED provider, pending radiology final review ED provider radiology interpretation(s): xr elbow wrist shoulder: no acute fx Discharge Plan Discharge Patient Disposition: Home Clinical Impression: Injury of right elbow Condition: Stable Prescriptions: New Naprosyn 500 mg tablet 500 mg PO BID PRN (Reason: pain) Qty: 20 0RF No Action Eliquis 5 mg tablet 5 mg PO BID Qty: 60 3RF albuterol sulfate 90 mcg/actuation Hfa Aerosol Inhaler 2 puff INHALATION Q6H PRN (Reason: Shortness Of Breath Or Wheezing) acetaminophen 325 mg capsule 325 mg PO Q4H PRN (Reason: fever or postoperative pain) Qty: 60 0RF Discharge Orders: Discharge ED (Routine); Ordered 04/16/23 Ordered By: Sarah Childress Referrals: Ori Smith MD [Primary Care Provider] - Forrest Parkinson DO [Physician] - 1-3 days Discharge Diet: Advance as tolerated Discharge Activity: Limit activity as instructed Patient Instructions: Elbow Strain (ED) Coding Level of Care Code ED Training Director for Kylie Rodriguez
[2023-04-16] MEDS: naproxen 500 mg Tablet PO (01:02)
[2023-04-16 01:30] VITALS: PULSE 88; RESP 18; O2SAT 98
--- NOTE | 2023-04-16 09:25 | PC.SOCIAL ---
Ortho Referral Referral sent to ortho at this time. Clinic to contact patient with appt date/time.
== END 2023-04-16 01:31 | disposition home or self-care (01) ==
PROVIDERS: Emergency Provider Emergency Medicine; PCP Family Medicine
DX: S59.901A Unspecified injury of right elbow, initial encounter (principal); Z79.01 Long term (current) use of anticoagulants; W19.XXXA Unspecified fall, initial encounter
CPT/HCPCS: 73030; 73080; 73110; 99283

== ENCOUNTER 2023-04-23 13:42 | Oncology outpatient (recurring) (ONCR) | payer OTHER, SELFPAY ==
[2023-04-22 08:15] VITALS: BP 126/62; PULSE 79; RESP 16; TEMP 36.3; O2SAT 98
[2023-04-22 08:21] LABS: Basophils % 0.5 %; Eosinophils # 0.3 10^3/uL (0.0-0.8); Eosinophils % 3.9 %; Hematocrit 37.7 % (36-47); Lymphocytes # 1.6 10^3/uL (0.8-4.8); Lymphocytes % 24.2 %; Mean Corpuscular HGB Conc 30.2 g/dL (30-55); Mean Corpuscular Hemoglobin 26.8 pg (27-33); Mean Corpuscular Volume 88.5 fl (85-98); Mean Platelet Volume 10.7 fL (7.4-10.4); Monocytes # 0.4 10^3/uL (0.2-0.9); Monocytes % 6.1 %; Neutrophils # 4.17 10^3/uL (1.8-7.7); Nucleated Red Blood Cells % 0 %; Platelet Count 279 10^3/cmm (157-399); Red Blood Count 4.26 10^6/uL (3.85-5.65); Red Cell Distribution Width 13.4 % (12.1-15.1); White Blood Count 6.41 10^3/uL (3.29-11.43)
== END 2023-05-14 23:59 | disposition home or self-care (01) ==
PROVIDERS: Nurse Practitioner Family; PCP Family Medicine; Visit Provider Internal Medicine Medical Oncology
DX: S59.901A Unspecified injury of right elbow, initial encounter (principal); M25.531 Pain in right wrist; X58.XXXA Exposure to other specified factors, initial encounter
CPT/HCPCS: 36415; 73080; 73110; 85025

== ENCOUNTER → 2023-05-08 11:17 | Outpatient (BNVA) | payer OTHER, SELFPAY | PROVIDERS: PCP Family Medicine; Visit Provider Physician Assistant | DX: S52.121A Displaced fracture of head of right radius, initial encounter for closed fracture (principal); X58.XXXA Exposure to other specified factors, initial encounter | CPT/HCPCS: 73080 ==

== ENCOUNTER 2023-07-07 22:44 | Emergency (ER) | payer OTHER, SELFPAY ==
[2023-07-07 22:52] VITALS: BP 141/100; PULSE 102; RESP 16; TEMP 37.1; O2SAT 95
--- NOTE | 2023-07-07 22:55 | XRR_ITS ---
PROCEDURE INFORMATION: Exam: XR Right Wrist Exam date and time: 07/07/2023 11:00 PM Age: 47 years old Clinical indication: Injury or trauma; Fall; Blunt trauma (contusions or hematomas); Right; Patient HX: Patient fell out of a chair landing on wrist. C/O pain. TECHNIQUE: Imaging protocol: Radiologic exam of the right wrist. Views: 3 or more views. COMPARISON: No relevant prior studies available. FINDINGS: Bones/joints: There are no fractures or dislocations noted. Soft tissues: There is no radiopaque foreign body noted. XR/XR wrist RT min 3V* [id number] IMPRESSION: No acute findings.
--- NOTE | 2023-07-07 22:55 | W.ED.EXTPRO ---
HPI - Extremity Problem General: Chief complaint: Extremity Injury, Upper Stated complaint: fell Time Seen by Provider: 07/07/23 22:48 History of Present Illness: 47-year-old female reports that she was leaning forward in her chair at work and the chair rolled out from behind her causing her to fall forward. Patient reached forward and caught herself and injured her right wrist. Since then patient's had some pain and discomfort to the joint line of the right wrist. Minimal swelling is noted. Cap refill and sensation is intact. Review of Systems General: Reports: 10 or more systems reviewed and unremarkable except in HPI and below Musc: Reports: extremity pain PFSH ED PFSH: Medical History Deep vein thrombosis of lower extremity Iron deficiency anemia Morbid obesity Pulmonary emboli Small bowel obstruction due to adhesions Ventral incisional hernia Surgical History History of colonoscopy (08/26/22) EGD and colonoscopy History of exploratory laparotomy History of varicose vein ligation 2016 History of vein stripping 2016 Hx of cholecystectomy Family History Father CAD (coronary artery disease) Mother Liver disease, alcoholic Deep vein thrombosis Other Cancer Diabetes Denies family history of Bleeding disorder Social History Smoking and tobacco/nicotine status: never used tobacco/nicotine Alcohol intake: current Alcohol intake frequency: holidays/special occasions only Substance/Drug Use: never Physical Exam Const: COMMON NORMALS: alert HENMT: COMMON NORMALS: normocephalic HEAD & SCALP: normocephalic Neck/C-Spine: COMMON NORMALS: full ROM Resp: COMMON NORMALS: normal respiratory effort and clear to auscultation bilaterally AUSCULTATION: clear to auscultation bilaterally Cardio: COMMON NORMALS: regular rate RATE: regular rate Back/Pelvis: COMMON NORMALS: thoracic and lumbar spine normal to inspection Extremity: RIGHT UPPER EXTREMITY: Yes wrist (Minimal swelling, joint line tenderness, no deformity, normal range of gilberto) Neuro: SENSORIUM/ORIENTATION: Yes alert Skin: COMMON NORMALS: turgor normal GENERAL SKIN EXAM: turgor normal Course Vital Signs: Vital signs: Vital Signs Temperature 98.7 F 07/07/23 22:52 Pulse Rate 102 H 07/07/23 22:52 Respiratory Rate 16 07/07/23 22:52 Blood Pressure 141/100 07/07/23 22:52 Pulse Oximetry 95 07/07/23 22:52 MDM - Extremity (Nontraumatic) Medical Decision Making Patient presents for injury to the right wrist. On exam patient has some joint line tenderness. Cap refills and neurosensation intact. Differential diagnosis includes but not limited to fracture, sprain, dislocation, contusion. X-ray noted no fracture. Patient was placed in a elastic wrist support with recommendation for follow-up or return to the ER. Patient reported understanding and agreed to plan. XR interpretation done by ED provider, pending radiology final review Discharge Plan Discharge Patient Disposition: Home Clinical Impression: Sprain and strain of wrist Clinical Impression: (Ruled Out): Fracture of wrist Condition: Stable Prescriptions: No Action Eliquis 5 mg tablet 5 mg PO BID Qty: 60 3RF albuterol sulfate 90 mcg/actuation Hfa Aerosol Inhaler 2 puff INHALATION Q6H PRN (Reason: Shortness Of Breath Or Wheezing) Naprosyn 500 mg tablet 500 mg PO BID PRN (Reason: pain) Qty: 20 0RF acetaminophen 325 mg capsule 325 mg PO Q4H PRN (Reason: fever or postoperative pain) Qty: 60 0RF Discharge Orders: Discharge ED (Routine); Ordered 07/07/23 Ordered By: Trace Jacobson Referrals: Ori Smith MD [Primary Care Provider] - Discharge Diet: Usual diet Discharge Activity: Increase activity as tolerated Patient Instructions: Wrist Sprain (ED) Activity Restrictions/Additional Instructions: Activity as tolerated. Elastic bandage for comfort and support. Use acetaminophen as needed for further pain. Follow-up with primary care for further instructions. Return to ED for new concerns. Coding Level of Care Code ED Diving Supervisor for Kylie Rodriguez
[2023-07-07] MEDS: acetaminophen 500 mg Tablet 1000 MG PO (23:01)
[2023-07-07 23:18] VITALS: RESP 18
== END 2023-07-07 23:20 | disposition home or self-care (01) ==
PROVIDERS: Emergency Provider Nurse Practitioner Family; PCP Family Medicine
DX: S63.501A Unspecified sprain of right wrist, initial encounter (principal); S66.911A Strain of unspecified muscle, fascia and tendon at wrist and hand level, right hand, initial encounter; Z79.01 Long term (current) use of anticoagulants; W07.XXXA Fall from chair, initial encounter; Y99.0 Civilian activity done for income or pay
CPT/HCPCS: 73110; 99283

== ENCOUNTER 2023-08-06 08:00 | Oncology outpatient (recurring) (ONCR) | payer OTHER, SELFPAY ==
[2023-07-23 08:30] VITALS: BP 155/100; PULSE 88; RESP 16; TEMP 37; O2SAT 99
[2023-07-23 08:50] LABS: Basophils % 0.4 %; Eosinophils # 0.3 10^3/uL (0.0-0.8); Eosinophils % 4.3 %; Hematocrit 38.4 % (36-47); Lymphocytes % 25.7 %; Mean Platelet Volume 11.2 fL (7.4-10.4); Monocytes # 0.6 10^3/uL (0.2-0.9); Monocytes % 7.2 %; Neutrophils # 4.71 10^3/uL (1.8-7.7); Nucleated Red Blood Cells % 0 %; Platelet Count 330 10^3/cmm (157-399); Red Blood Count 4.57 10^6/uL (3.85-5.65); Red Cell Distribution Width 15.8 % (12.1-15.1)
[2023-07-23 10:04] LABS: Ferritin 23 ng/mL (15-150); Iron 20 ug/dL (37-145); Percent Saturation 8.1 % (20-50); Total Iron Binding Capacity 246 mcg/dl; Unsaturated Iron Binding 226 ug/dL (112-347)
[2023-07-30] MEDS: ferric carboxy (IVPB) 750 MG in sodium chloride 0.9% (100 ml) 100 ML 345 MG IV (08:39)
[2023-07-30 09:06] VITALS: BP 145/94; PULSE 76; TEMP 35.9; O2SAT 100
[2023-08-06 08:16] VITALS: BP 162/102; PULSE 77; RESP 16; TEMP 36.1; O2SAT 96
[2023-08-06] MEDS: ferric carboxy (IVPB) 750 MG in sodium chloride 0.9% (100 ml) 100 ML 345 MG IV (08:42)
[2023-08-06 09:06] VITALS: BP 137/85; PULSE 74; RESP 18; TEMP 36.4; O2SAT 98
== END 2023-08-14 23:59 | disposition home or self-care (01) ==
PROVIDERS: Nurse Practitioner Family; PCP Family Medicine; Visit Provider Internal Medicine Medical Oncology
DX: D50.0 Iron deficiency anemia secondary to blood loss (chronic) (principal); Z53.9 Procedure and treatment not carried out, unspecified reason
CPT/HCPCS: 36415; 82728; 83540; 83550; 85025; 96365; J1439